=== PATIENT | male | born 1935 | race Caucasian/White ===

== ENCOUNTER → 2016-06-28 | Outpatient (CLI) | payer MEDICARE, BC ==
[2016-06-28 13:53] VITALS: BP 126/60; PULSE 74; RESP 18; TEMP 98.7
--- NOTE | 2016-06-28 20:56 | P.CONS ---
History of Present Illness - Reason for Consult Consult date: 06/28/16 - History of Present Illness This is the initial consultation visit for this 81 years old male, with more than 1 year history of severe neck pain, pain mostly localized in the left side of the neck. And is not radiated to the upper extremities , he denies any fever or night sweats, he denies any motor or sensory deficit, he denies any numbness or tingling sensation, and no change in the bowel movements or urination, denies any initiating event, and he reported that the intensity of the pain is 5/10 increased with any neck movement to 10 over 10, patient ambulates using a wheelchair, but he is able to walk on his own, Past Medical History Past Medical History: Dementia, Hyperlipidemia, Thyroid Disorder Additional Past Medical History / Comment(s): Gout History of Any Multi-Drug Resistant Organisms: None Reported Past Surgical History: No Surgical Hx Reported Past Anesthesia/Blood Transfusion Reactions: No Reported Reaction Past Psychological History: No Psychological Hx Reported Smoking Status: Former smoker Past Alcohol Use History: None Reported Past Drug Use History: None Reported - Past Family History Father Family Medical History: No Reported History Mother Family Medical History: No Reported History Medications and Allergies Home Medications Medication Instructions Recorded Confirmed Type ARIPiprazole [Abilify] 2 mg PO DAILY 06/28/16 06/28/16 History Acetaminophen [Tylenol] 500 mg PO Q4-6H PRN 06/28/16 06/28/16 History Albuterol Sulfate [Proair 1 puff PO DAILY 06/28/16 06/28/16 History Respiclick] Allopurinol [Zyloprim] 300 mg PO DAILY 06/28/16 06/28/16 History Aspirin EC [Ecotrin] 325 mg PO DAILY 06/28/16 06/28/16 History Cholecalciferol [Vitamin D3] 1,000 unit PO DAILY 06/28/16 06/28/16 History Cimetidine [Tagamet Hb] 200 mg PO QID 06/28/16 06/28/16 History DULoxetine HCL [Cymbalta] 60 mg PO DAILY 06/28/16 06/28/16 History Dicyclomine [Bentyl] 20 mg PO QID 06/28/16 06/28/16 History Donepezil [Aricept] 5 mg PO HS 06/28/16 06/28/16 History Fenofibrate Nanocrystallized 145 mg PO DAILY 06/28/16 06/28/16 History [Tricor] Folic Acid 1 mg PO DAILY 06/28/16 06/28/16 History Furosemide [Lasix] 20 mg PO DAILY 06/28/16 06/28/16 History Ginkgo Biloba [place] Extract [Ginkgo] 60 mg PO DAILY 06/28/16 06/28/16 History Iron 18 mg PO DAILY 06/28/16 06/28/16 History Mirtazapine 7.5 mg PO DAILY 06/28/16 06/28/16 History [place]-3 Fatty Acids/Fish Oil [Fish 1 each PO DAILY 06/28/16 06/28/16 History Oil 1,000 mg Softgel] Oxybutynin Chloride [Ditropan XL] 10 mg PO DAILY 06/28/16 06/28/16 History Potassium 30 mg PO DAILY 06/28/16 06/28/16 History Tamsulosin [Flomax] 0.4 mg PO DAILY 06/28/16 06/28/16 History Allergies Allergy/AdvReac Type Severity Reaction Status Date / Time No Known Allergies Allergy Verified 06/28/16 13:35 Physical Exam Vitals: Vital Signs Temp Pulse Resp BP Pulse Ox 06/28/16 13:46 98.7 F 74 18 126/60 98 Intake and Output 06/28/16 06/28/16 06/28/16 06:59 14:59 22:59 Other: Weight 72.575 kg Patient Weight 06/29/16 06:59 Weight 72.575 kg Social history : not smoker , NO ETOH , NO Illegal drugs use . Review of Systems : 1- Constitutional : no chills , no fever , no night sweats , 2- Ears : no ear discharge , no change in hearing 3-Nose, Mouth ,Throat ; no bleeding gums, no sore throat , no epistaxis , 4-Cardiovascular : Denies chest pain, , no orthopnea , no palpitation 5-Respiratory : Denies cough , no dyspnea , no hemoptysis 6-Gastrointestinal :, no change in bowel habits , no coffee- ground emesis . 7-Genitourinary : No hematuria , no discharge , no incontinence, history of renal disease 8-Musculoskeletal : No gait dysfunction , report low back pain , 9- Neurological : no ataxia , no tremor , no sezure , 10-Psychatric , no suicidal ideation no hallucination , history of Alzheimer 11- Endocrine : no cold intolerence , no polyuria , no polydypsia , 12-Hematologic : no easy bleeding , no easy brusing , 13-Allergic / immunology : no angioedema , no wheezing ,no allergic rhinitis 14-Integumentary : no brttle nails , no change hair / nails , no foot/leg ulcers . Physical Examinations : 1-Constitutional : Cooperative , not in acute distress . 2-HEENT : nech ; supple , no Lymphadenopathy , no Thyromegaly , :eyes , no icterus, no photophobia . ENT : , normal oropharynx , no Thrush 3- Respiratory : Chest clear to auscultations Bilaterally , no wheezing . 4- Cardiovascular : regular rate and rhythem , S1 , S2 , no S3 , no S4. 5- Gastrointestinal: abdomen soft no tenderness , no organomegally . 6- Genitourinary : Defferred . 7-Integumentary : No cellulitis , no ulcers , normal skin turgor , no cyanotic . 8- neurologic : Cranial nerve II to XII intact , no focal neurological deffecit 9-psychatric : alert , oriented X 3 , appropriate affect , intact judgment and insight . 10-Lymphatic : no Lymphadenopathy. 11- musculoskeltal: normal gait , exams of the cervical spine = motor stregnth in the deltoid and biceps, normal right side , normal Left side motor stregnth biceps and the wrist extensors normal right side ,normal left side . motor stregnth in the triceps muscle . normal Right side , normal Left side deep tendon reflexes normal at the biceps , normal at Brachioradialis , normal at triceps. positive cervical facet loading test on the left side only. 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 -Patient could benefit from left-sided diagnostic medial branch block cervical area C3 /C4 /C5 will do the diagnostic block was benefits positive then we will proceed to radiofrequency ablation of the medial branch cervical area, procedure risk and benefits and alternatives discussed with the patient and his and they agreed with the preceding Time with Patient: Greater than 30
== END | disposition home or self-care (01) ==
LOC: PNWHC3 13:08
PROVIDERS: ATTEND Specialist
DX: M50.30 Other cervical disc degeneration, unspecified cervical region (principal); M47.812 Spondylosis without myelopathy or radiculopathy, cervical region; M46.92 Unspecified inflammatory spondylopathy, cervical region; F03.90 Unspecified dementia, unspecified severity, without behavioral disturbance, psychotic disturbance, mood disturbance, and anxiety; E78.5 Hyperlipidemia, unspecified; M10.9 Gout, unspecified; Z87.891 Personal history of nicotine dependence; Z79.899 Other long term (current) drug therapy
CPT/HCPCS: 99201

== ENCOUNTER 2016-07-29 08:54 | Day surgery (SDC) | payer MEDICARE, BC ==
[2016-07-28 12:21] VITALS: BMI 24.3
[~2016-07-29 08:54] MED LIST: LACTATED RINGERS 1,000 ML IV SCH
[2016-07-29 09:24] VITALS: TEMP 97.7
[2016-07-29] MEDS ORDERED: LIDOCAINE 1% 20 ML VIAL (10MG/ML) FOR IV START INTRADERMA ONE (09:25)
[2016-07-29] MEDS ORDERED: BUPIVACAINE (PF) 0.5% 30 ML VIAL ONE (09:49)
[2016-07-29] MEDS ORDERED: DEXAMETHASONE SOD PHOS (MDV) 100 MG/10 ML VIAL ONE (09:49)
[2016-07-29] MEDS ORDERED: MIDAZOLAM 2 MG/2 ML VIAL ONE (09:49)
[2016-07-29] MEDS ORDERED: fentaNYL (PF) 50 MCG/ML 2 ML AMP ONE (09:49)
--- NOTE | 2016-07-29 10:36 | FL ---
EXAMINATION TYPE: FL guided pain mgmt statistic DATE OF EXAM: 07/29/2016 10:31 AM HISTORY: Pain LEFT CERVICAL FACET BLACO, FLUORO TIME 22 SECONDS, 2 IMAGES SCANNED,
--- NOTE | 2016-07-29 10:36 | P.PCN ---
Date of Procedure: 07/29/16 Procedure(s) Performed: PREOPERATIVE DIAGNOSIS:1- Cervical Spondylosis with Facet Arthropathy.without myelopathy. 2-cervical degenerative disc disease POSTOPERATIVE DIAGNOSIS: As preoperative diagnosis PROCEDURES: Diagnostic , left C3-4, C4-5 , C5-6, medial branch blocks, with fluoroscopic guidance ANESTHESIA: Local with 1% lidocaine 5 ml ; IV sedation with Versed 2 mg and fentanyl 50 g. EBL: Minimal PROCEDURE INDICATION: The patient with neck pain secondary to cervical arthropathy unresponsive to more conservative treatments. PROCEDURE DESCRIPTION / TECHNIQUE: The patient was seen and identified in the preoperative area. Risks, benefits, complications, and alternatives were discussed with the patient, the patient agreed to proceed with the procedure and signed the consent. IV was started. Vital signs remained stable throughout the procedure. Patient was taken to the OR and time out was completed. The patient was placed in the prone position on the procedure table. A pillow was placed under the patients chest to increase the cervical interlaminar space. The cervical area was prepped and draped in the usual sterile fashion. Critical pause was taken. Vital signs were closely monitored during the procedure. Conscious sedation was used during the procedure to decrease patients anxiety. I tried to visualize the vertebral bodies , I was not able to visualize below the C3 vertebra, the patient placed in the lateral view again I have the same problem couldn't visualize any vertebra below C3 vertebra, the patient was placed in supine position, I was able to visualize C2/C3/C4/C5 vertebra. Using cross-table lateral fluoroscopy, the centroid of the trapezoid of left C3 , C4 , C5 was identified, marked, and localized with 1% lidocaine 1 ml at each level for skin and Sub Q infiltrations . Subsequently, a 22 G 3 spinal needle was advanced guided by fluoroscopy to the centroid of the trapezoid of left C3, C4 , C5. [place] tip position was confirmed at the centroid of the trapezoids of left C3 , C4 , C5 with anteroposterior fluoroscopy. Subsequently, 1,5 ml of preservative-free Bupivacaine 0.5% mixed with Dexamethasone 10 mg and half ml of the mixture was injected after negative aspiration for blood and CSF. [place] was then removed intact the. COMPLICATIONS: No acute complications. COMMENTS: DISPOSITION / PLANS: The patient was placed in a supine position and transferred to the recovery area in a stable condition for observation and was discharged from the recovery room after meeting discharge criteria. Home discharge instructions given to the patient by the staff. The patient was reexamined prior to discharge. The patient will schedule a follow up in the clinic in 2-4 weeks.
[2016-07-29] MEDS ORDERED: IV FLUID CONTINUATION 1,000 ML IV ONE ×2 (10:45)
[2016-07-29] MEDS ORDERED: diphenhydrAMINE 50 MG/ML 1 ML VIAL IVP ONE (10:52)
[2016-07-29 11:18] VITALS: BP 133/72; PULSE 73; RESP 17
== END 2016-07-29 11:33 | disposition home or self-care (01) ==
LOC: ORPAIN 08:54
PROVIDERS: ATTEND Specialist
DX: M47.812 Spondylosis without myelopathy or radiculopathy, cervical region (principal); M46.92 Unspecified inflammatory spondylopathy, cervical region; M50.33 Other cervical disc degeneration, cervicothoracic region; G30.9 Alzheimer's disease, unspecified; F02.80 Dementia in other diseases classified elsewhere, unspecified severity, without behavioral disturbance, psychotic disturbance, mood disturbance, and anxiety
CPT/HCPCS: 99152; 99153; 64490; 64491; 64492; J2250; J1200; J3010; J1100

== ENCOUNTER 2018-05-11 13:11 | Inpatient (IN) | payer MEDICARE, BC ==
[2018-05-11] MEDS ORDERED: NALOXONE 0.4 MG/ML 1 ML VIAL IV PRN ×2 (13:22→15:36)
[2018-05-11] MEDS ORDERED: VANCOMYCIN IV PER PHARMACY 1 EACH MISC MISCELLANE PRN (13:27)
[2018-05-11] MEDS ORDERED: DEXTROSE 5%-0.45% NACL 1,000 ML IV SCH (13:30)
[2018-05-11] MEDS: NOREPINEPHRINE 4 MG in SODIUM CHLORIDE 0.9% 250 ML IV SCH (13:55)
[2018-05-11 13:58] LABS: Basophils % (A) 0 %; Eosinophils % (A) 0 %; HCT 32.5 % (39.0-53.0); HGB 10.3 gm/dL (13.0-17.5); Hypochromasia Slight; Lymphocytes # (A) 0.7 k/uL (1.0-4.8); Lymphocytes % (A) 8 %; MCH 31.7 pg (25.0-35.0); MCHC 31.8 g/dL (31.0-37.0); MCV 99.7 fL (80.0-100.0); Mean Platelet Volume 8.4; Monocytes # (A) 0.3 k/uL (0-1.0); Monocytes % (A) 3 %; Neutrophils % (A) 87 %; Platelet Count 229 k/uL (150-450); RBC 3.26 m/uL (4.30-5.90); RDW 13.8 % (11.5-15.5); WBC 8.1 k/uL (3.8-10.6)
[2018-05-11 14:01] LABS: Albumin 2.3 g/dL (3.5-5.0); Calcium 7.4 mg/dL (8.4-10.2); Magnesium 2.5 mg/dL (1.6-2.3); Potassium 3.5 mmol/L (3.5-5.1); Total Bilirubin 0.4 mg/dL (0.2-1.3); Total Protein 4.5 g/dL (6.3-8.2)
[2018-05-11 14:04] LABS: ABG Base Excess -7.4 mmol/L; ABG HCO3 21 mmol/L (21-25); ABG Oxygen Saturation 96.6 % (94-97); ABG PCO2 53 mmHg (35-45); ABG PO2 109 mmHg (83-108); ABG TCO2 22 mmol/L (19-24)
[2018-05-11 14:05] LABS: Partial Thromboplastin Time 30.6 sec (22.0-30.0); Prothrombin Time 10.9 sec (9.0-12.0)
--- NOTE | 2018-05-11 14:36 | XR ---
EXAMINATION TYPE: XR chest 1V portable DATE OF EXAM: 05/11/2018 COMPARISON: None INDICATION: Line displacement TECHNIQUE: Single frontal view of the chest is obtained. FINDINGS: The heart size is normal. The pulmonary vasculature is normal. There is diffuse increased lung markings bilaterally. This is increased greater in the central hilar regions.Small left pleural effusion is present. Right central venous catheter is been placed with tip in the proximal right atrium. No pneumothorax i s evident. Nasogastric tube transverses the thorax the tip in the left upper quadrant of the abdomen. Endotracheal tube tip is 3.3 cm above the fuentes. IMPRESSION: 1. Increased central hilar lung markings with more mild diffuse infiltrate in the periphery. Correlat e for pulmonary edema. 2. Small left pleural effusion. 3. Lines and catheters discussed above.
--- NOTE | 2018-05-11 14:54 | ED ---
General Adult HPI - General Chief complaint: Altered Mental Status Stated complaint: GIUSEPPE Time Seen by Provider: 05/11/18 13:21 Source: EMS, RN notes reviewed, old records reviewed Mode of arrival: EMS Limitations: altered mental status - History of Present Illness Initial comments: 83-year-old male presents as transfer from outside hospital, patient was admitted with pneumonia, his clinical status did deteriorate and patient was transferred for higher level of care and ICU management. No history obtained from the patient. According to the medical record patient had bilateral pneumonia, just of heart failure, elevated troponin. He was initiated on ceftriaxone, clindamycin, and vancomycin. He was out and was started on norepinephrine for blood pressure support. Pt had significantly elevated troponin as well as BNP, he was treated for non-ST segment elevated [place] with Lovenox. Patient was placed on BiPAP prior to transfer, upon arrival patient is his severe respiratory distress, tachypneic at 40, he been hypoxic in the high 80s to low 90s during transport. Patient previously had a DO NOT RESUSCITATE however this was revoked by his prior to transfer. I did intubate the patient upon arrival. - Related Data Home Medications Medication Instructions Recorded Confirmed Allopurinol [Zyloprim] 150 mg PO DAILY 06/28/16 05/11/18 Cholecalciferol [Vitamin D3] 5,000 unit PO DAILY 06/28/16 05/11/18 DULoxetine HCL [Cymbalta] 60 mg PO DAILY 06/28/16 05/11/18 Ginkgo Biloba [place] Extract [Ginkgo] 60 mg PO BID 06/28/16 05/11/18 Tamsulosin [Flomax] 0.4 mg PO DAILY 06/28/16 05/11/18 Levothyroxine Sodium [Synthroid] 50 mcg PO DAILY 07/28/16 05/11/18 Potassium Chloride [K-Tab ER] 10 meq PO DAILY 10/01/16 05/11/18 Cetirizine HCl [Zyrtec] 10 mg PO DAILY 12/06/16 05/11/18 Ferrous Sulfate [Feosol] 325 mg PO DAILY 12/06/16 05/11/18 Folic Acid 0.8 mg PO DAILY 12/06/16 05/11/18 Mirtazapine [Remeron] 15 mg PO HS 12/06/16 05/11/18 Multivitamins, Thera [Multivitamin 1 tab PO DAILY 12/06/16 05/11/18 (formulary)] Acetaminophen Tab [Tylenol Tab] 650 mg PO Q6H PRN 05/11/18 05/11/18 Albuterol Sulfate [Proair Hfa] 2 puff INHALATION RT-Q4H PRN 05/11/18 05/11/18 Bisacodyl 10 mg RECTAL DAILY PRN 05/11/18 05/11/18 LORazepam [Ativan] 1 mg PO TID PRN 05/11/18 05/11/18 Magnesium 400 mg PO DAILY 05/11/18 05/11/18 Magnesium Hydroxide [Milk of 2,400 mg PO DAILY PRN 05/11/18 05/11/18 Magnesia] Memantine HCl [Namenda Xr] 28 mg PO DAILY 05/11/18 05/11/18 Sennosides [Senna] 8.6 mg PO HS PRN 05/11/18 05/11/18 Solifenacin Succinate [Vesicare] 5 mg PO DIRECTED 05/11/18 05/11/18 Allergies Allergy/AdvReac Type Severity Reaction Status Date / Time chloraprep Allergy Rash/Hives Uncoded 12/06/16 10:53 Review of Systems ROS Statement: Those systems with pertinent positive or pertinent negative responses have been documented in the HPI. ROS Other: All systems not noted in ROS Statement are negative. Past Medical History Past Medical History: Asthma, Dementia, Deep Vein Thrombosis (DVT), Hyperlipidemia, Osteoarthritis (OA), Pneumonia, Renal Disease, Thyroid Disorder , Vascular Disorder Additional Past Medical History / Comment(s): GOUT, STATES BLOCKAGE BOTH LEGS- UNABLE TO WALK DISTANCE., USES CANE., PNEUMONIA IN SEPTEMBER 2016., FOLLOWS WITH "VEIN DR AND KIDNEY DR.", NECK PAIN. History of Any Multi-Drug Resistant Organisms: None Reported Past Surgical History: Appendectomy, Cholecystectomy, Hernia Repair, Joint Replacement Additional Past Surgical History / Comment(s): CIRCUMCISION, TOTAL LEFT KNEE, NECK SURGERY, VARICOSE VEIN SURGERY, CATARACTS MICHAELA, VASECTOMY Past Anesthesia/Blood Transfusion Reactions: No Reported Reaction Past Psychological History: Depression Smoking Status: Former smoker Past Alcohol Use History: None Reported Past Drug Use History: None Reported - Past Family History Father Family Medical History: No Reported History Mother Family Medical History: Cancer Brother(s) Family Medical History: Cancer General Exam Limitations: altered mental status General appearance: obtunded, in distress Head exam: Present: atraumatic, normocephalic Eye exam: Present: normal appearance, PERRL ENT exam: Present: mucous membranes dry Respiratory exam: Present: respiratory distress, wheezes, rhonchi, decreased breath sounds Cardiovascular Exam: Present: regular rate, normal rhythm GI/Abdominal exam: Present: soft. Absent: distended, tenderness Extremities exam: Present: normal capillary refill, pedal edema Skin exam: Present: warm, dry, intact Course Vital Signs 05/11/18 05/11/18 05/11/18 13:17 13:35 13:45 Temperature 99.2 F Pulse Rate 104 H 100 100 Respiratory 20 16 16 Rate Blood Pressure 95/60 104/55 105/54 O2 Sat by Pulse 89 L 96 96 Oximetry 05/11/18 05/11/18 14:10 14:25 Temperature Pulse Rate 101 H 103 H Respiratory 16 16 Rate Blood Pressure 121/61 112/58 O2 Sat by Pulse 97 98 Oximetry Procedures - Central Line Placement Right SC Consent Obtained: emergent situation Patient Placed on Monitor/Pulse Ox: Yes MD Prep: mask, gown, gloves Ultrasound Used for Placement: No Central Line Lumen Inserted: triple Bloods Obtained for Lab: Yes Central Line Position: good blood return, all ports aspirated, flushed, capped, sutured in place with nylon Dressing Applied: Tegaderm Post Procedure X-Ray: tip of catheter in good position Patient Tolerated Procedure: well Complications: none - Intubation Sedative: Versed Mg Given: 5 Paralytic: Rocuronium Mg Given: 50 Laryngoscope: Kar Size: 3 ET Tube Size: 7.5 ET Tube Uncuffed: No Tube Secured Depth (cm): 23 Tube Secured Location: lips Tube Placement Confirmation: visualized tube passing through cords, equal breath sounds bilaterally, no breath sounds over epigastrium, confirmation by capnometry Patient Tolerated Procedure: well Intubation Complications: none Medical Decision Making - Medical Decision Making 83-year-old male presenting as transfer, severe respiratory distress, congestive heart failure, bilateral pneumonia, non-ST segment elevated [place]. Patient intubated, chest x-ray obtained, shows bilateral pulmonary edema, no pneumothorax. All laboratory studies will be repeated, echo will be obtained, patient admitted to the ICU, case discussed with both the admitting physician and the pulmonary end frazer, cardiology will be placed on consult. - Lab Data Result diagrams: 05/11/18 13:40 05/11/18 13:40 Critical Care Time Critical Care Time: Yes Total Critical Care Time: 35 Disposition Clinical Impression: Respiratory failure, Congestive heart failure, Pneumonia Disposition: ADMITTED IP TO THIS [facility] Condition: Serious Is patient prescribed a controlled substance at d/c from ED?: No Decision to Admit Reason: Admit from EC Decision Date: 05/11/18 Decision Time: 14:53
[2018-05-11] MEDS ORDERED: SODIUM CHLORIDE 0.9% 1,000 ML IV SCH ×2 (15:00→18:45)
[2018-05-11] MEDS ORDERED: HEPARIN SODIUM,PORCINE 5,000 UNIT/ML 1 ML VIAL IV PRN (15:24)
[2018-05-11 15:26] LABS: Glucose,Whole Blood 143 mg/dL (75-99)
[2018-05-11] MEDS: PROPOFOL 1,000 MG in EMPTY BAG 1 BAG IV SCH (15:30)
[2018-05-11] MEDS ORDERED: IPRATROPIUM-ALBUTEROL 3 ML NEB INHALATION PRN (15:36)
--- NOTE | 2018-05-11 15:58 | XR ---
EXAMINATION TYPE: XR chest 1V portable DATE OF EXAM: 05/11/2018 COMPARISON: 05/11/2018 earlier exam INDICATION: Tube placement TECHNIQUE: Single frontal view of the chest is obtained. FINDINGS: The heart size is normal. The pulmonary vasculature is borderline in size. There is some improving perihilar infiltrates. Overall, diffuse increased lung markings remain presen t slightly improved over the interval. Left base. A small left pleural effusion remains present. Endotracheal tube, nasogastric tube, right central venous catheter positioning stable. IMPRESSION: 1. There is improving infiltrate through the bilateral lungs. Bibasilar infiltrates considered. Follo w-up can be performed as clinically indicated. 2. Lines and catheters discussed above
[2018-05-11 16:09] LABS: ABG Base Excess -5.6 mmol/L; ABG HCO3 22 mmol/L (21-25); ABG Oxygen Saturation 97.8 % (94-97); ABG PCO2 49 mmHg (35-45); ABG PH 7.25 (7.35-7.45); ABG PO2 116 mmHg (83-108); ABG TCO2 23 mmol/L (19-24)
--- NOTE | 2018-05-11 16:13 | P.CNPUL ---
History of Present Illness Consult date: 05/11/18 Reason for consult: other (Acute hypoxic respiratory failure secondary to pneumonia and CHF) Chief complaint: Shortness of breath. History of present illness: This is an 83-year-old white male with history of chronic kidney disease stage III, dementia, degenerative joint disease and previous knee replacement, patient resides at [facility] and he was found today's ago by caregivers as having difficulty breathing and shortness of breath. He was also febrile, and was developing more lethargy. He had 2 episodes of emesis. Patient was taken to [place] emergency room. He was found to have multiple medical problems including pneumonia, sepsis, acute urinary tract infection, patient was admitted placed on Rocephin and clindamycin, felt the patient may have had aspiration pneumonia. At any rate patient's condition was deteriorating over the last 2 days, and arrangements were made for the patient to transfer to [facility]. He was placed on BiPAP, and as he arrived to the ER, he was noted to be in extreme respiratory distress. He was intubated by the ER physician immediately if. Apparently he had a DO NOT RESUSCITATE CODE STATUS prior to transfer, but on the way down here his reversed his CODE STATUS to full code. Patient was intubated placed on mechanical ventilation, a right subclavian central line was placed by the ER physician. The patient was relatively hypotensive requiring pressors and eventually transferred to the ICU. I didn't evaluate the patient in the ICU, reviewed her chest x-ray, labs, right radial arterial line was placed, and repeat blood gases were done ventilator settings will be adjusted accordingly. He is presently on 100% FiO2, assist control rate of 20 tidal volume of 500 PEEP of 8. Repeat ABG is pending patient is sedated, presently on mechanical ventilation. And not much history could be obtained other than what I have reviewed in the chart from [place] and from our ER physician. Chest x-ray showed increase central hilar lung markings and diffuse infiltrates bilaterally , the chest x-ray is consistent with bilateral pneumonia, however interstitial edema is not ruled out. There is also small left pleural effusion noted. Review of Systems ROS unobtainable: due to endotracheal tube Past Medical History Past Medical History: Asthma, Dementia, Deep Vein Thrombosis (DVT), Hyperlipidemia, Memory Impairment, Osteoarthritis (OA), Pneumonia, Prostate Disorder, Renal Disease, Thyroid Disorder, Vascular Disorder Additional Past Medical History / Comment(s): GOUT, STATES BLOCKAGE BOTH LEGS- UNABLE TO WALK DISTANCE., USES CANE., PNEUMONIA IN SEPTEMBER 2016., FOLLOWS WITH "VEIN AND KIDNEY ", NECK PAIN-hx cervical ddd and sx. past gout, diverticulitis,ulcers, uti's, dementia, ecf stated pt can become combatative. unsteady when up and has had falls. History of Any Multi-Drug Resistant Organisms: None Reported Past Surgical History: Appendectomy, Cholecystectomy, Hernia Repair, Joint Replacement Additional Past Surgical History / Comment(s): CIRCUMCISION, TOTAL LEFT KNEE, NECK SURGERY-has plate in neck, past medial branch blocks for cervical ddd.VARICOSE VEIN SURGERY, CATARACTS MICHAELA, colonoscopy, VASECTOMY Past Anesthesia/Blood Transfusion Reactions: No Reported Reaction Smoking Status: Former smoker - Past Family History Father Family Medical History: No Reported History Mother Family Medical History: Cancer Brother(s) Family Medical History: Cancer Medications and Allergies Home Medications Medication Instructions Recorded Confirmed Type Allopurinol [Zyloprim] 150 mg PO DAILY 06/28/16 05/11/18 History Cholecalciferol [Vitamin D3] 5,000 unit PO DAILY 06/28/16 05/11/18 History DULoxetine HCL [Cymbalta] 60 mg PO DAILY 06/28/16 05/11/18 History Ginkgo Biloba [place] Extract [Ginkgo] 60 mg PO BID 06/28/16 05/11/18 History Tamsulosin [Flomax] 0.4 mg PO DAILY 06/28/16 05/11/18 History Levothyroxine Sodium [Synthroid] 50 mcg PO DAILY 07/28/16 05/11/18 History Potassium Chloride [K-Tab ER] 10 meq PO DAILY 10/01/16 05/11/18 History Cetirizine HCl [Zyrtec] 10 mg PO DAILY 12/06/16 05/11/18 History Ferrous Sulfate [Feosol] 325 mg PO DAILY 12/06/16 05/11/18 History Folic Acid 0.8 mg PO DAILY 12/06/16 05/11/18 History Mirtazapine [Remeron] 15 mg PO HS 12/06/16 05/11/18 History Multivitamins, Thera [Multivitamin 1 tab PO DAILY 12/06/16 05/11/18 History (formulary)] Acetaminophen Tab [Tylenol Tab] 650 mg PO Q6H PRN 05/11/18 05/11/18 History Albuterol Sulfate [Proair Hfa] 2 puff INHALATION RT-Q4H PRN 05/11/18 05/11/18 History Bisacodyl 10 mg RECTAL DAILY PRN 05/11/18 05/11/18 History LORazepam [Ativan] 1 mg PO TID PRN 05/11/18 05/11/18 History Magnesium 400 mg PO DAILY 05/11/18 05/11/18 History Magnesium Hydroxide [Milk of 2,400 mg PO DAILY PRN 05/11/18 05/11/18 History Magnesia] Memantine HCl [Namenda Xr] 28 mg PO DAILY 05/11/18 05/11/18 History Sennosides [Senna] 8.6 mg PO HS PRN 05/11/18 05/11/18 History Solifenacin Succinate [Vesicare] 5 mg PO DIRECTED 05/11/18 05/11/18 History Allergies Allergy/AdvReac Type Severity Reaction Status Date / Time chloraprep Allergy Rash/Hives Uncoded 12/06/16 10:53 Physical Exam Vitals: Vital Signs Temp Pulse Resp BP Pulse Ox 05/11/18 15:14 98.3 F 102 H 16 112/58 98 05/11/18 14:57 101 H 16 113/59 97 05/11/18 14:25 103 H 16 112/58 98 05/11/18 14:10 101 H 16 121/61 97 05/11/18 13:45 100 16 105/54 96 05/11/18 13:35 100 16 104/55 96 05/11/18 13:17 99.2 F 104 H 20 95/60 89 L Intake and Output 05/11/18 05/11/18 05/11/18 06:59 14:59 22:59 Other: Weight 68.039 kg Physical Exam: Revealed an 83-year-old white male on mechanical ventilation, sedated, in no distress. Head: Atraumatic normocephalic. HEENT:[Neck is supple.] [No neck masses.] [No thyromegaly.] [No JVD.] PERRLA, EOMI, no icterus. Endotracheal tube and orogastric tube are noted to be intact Chest: [No animal crackles at the bases, no rhonchi and no wheezes. Symmetrical chest expansion, no chest wall tenderness, right infraclavicular subclavian central line noted..] Cardiac Exam: [Normal S1 and S2, no S3 gallop, 2/6 systolic murmur thought the precordium. Abdomen: [Soft, nontender, no megaly, no rebound, no guarding, normal bowel sounds.] Extremities: [No clubbing, no edema, no cyanosis.] Good pulses bilaterally in upper and lower extremities. Neurological Exam: Not be assessed, patient is sedated, apparently he was confused and obtunded upon arrival to the ER earlier before any sedation was given Skin: No rashes. Psychiatric: Could not be assessed. Lymphatics: No lymphadenopathy. Results - Laboratory Findings CBC and BMP: 05/11/18 13:40 05/11/18 13:40 ABG ABG pH 7.20 (7.35-7.45) L 05/11/18 14:02 ABG pCO2 53 mmHg (35-45) H 05/11/18 14:02 ABG pO2 109 mmHg (83-108) H 05/11/18 14:02 ABG O2 Saturation 96.6 % (94-97) 05/11/18 14:02 PT/INR, D-dimer PT 10.9 sec (9.0-12.0) 05/11/18 13:40 INR 1.0 (<1.2) 05/11/18 13:40 Abnormal lab findings: Abnormal Labs 05/11/18 05/11/18 05/11/18 13:40 13:40 13:40 RBC 3.26 L Hgb 10.3 L Hct 32.5 L Lymphocytes # 0.7 L APTT 30.6 H ABG pH ABG pCO2 ABG pO2 Sodium 148 H Chloride 119 H Carbon Dioxide 19 L BUN 50 H Creatinine 1.26 H Glucose 151 H POC Glucose (mg/dL) Plasma Lactic Acid Luis Calcium 7.4 L Magnesium 2.5 H AST 86 H Troponin I Total Protein 4.5 L Albumin 2.3 L 05/11/18 05/11/18 05/11/18 13:40 13:40 14:02 RBC Hgb Hct Lymphocytes # APTT ABG pH 7.20 L ABG pCO2 53 H ABG pO2 109 H Sodium Chloride Carbon Dioxide BUN Creatinine Glucose POC Glucose (mg/dL) Plasma Lactic Acid Luis 2.2 H* Calcium Magnesium AST Troponin I 14.400 H* Total Protein Albumin 05/11/18 15:14 RBC Hgb Hct Lymphocytes # APTT ABG pH ABG pCO2 ABG pO2 Sodium Chloride Carbon Dioxide BUN Creatinine Glucose POC Glucose (mg/dL) 143 H Plasma Lactic Acid Luis Calcium Magnesium AST Troponin I Total Protein Albumin - Diagnostic Findings Chest x-ray: image reviewed (Chest x-ray was reviewed and as noted in HPI.) Assessment and Plan Assessment: Impression: 1 acute hypoxic respiratory failure secondary to pneumonia, healthcare acquired type of pneumonia since the patient was in a senior living facility. Although aspiration pneumonia is also very likely considering the patient has underlying dementia and he had few episodes of emesis before he was brought into the ER in [place]. 2 acute sepsis secondary to pneumonia, other sources could also be the urine. 3 suspect some component of congestive heart failure, not clear whether it is systolic or diastolic in nature. Echocardiogram is pending. ProBNP level was significantly elevated on presentation. 4 history of dementia 5 degenerative joint disease and previous knee replacement./Left knee 6 chronic kidney disease stage III 7 acute non-ST elevation myocardial infarction is strongly suspected based on the fact the patient had elevated troponin 8 history of hypothyroidism 9 history of deep vein thrombosis 10 history of asthma as documented in the chart, however severity of which is not clear. Recommendation: Patient will be kept on mechanical ventilation, ventilator settings were addressed, and these will be adjusted according to the ABG. Follow-up ABG showed a pO2 of 116 pCO2 of 49 pH of 7.25, hence will increase tidal volume to 550 and keep the rest of the vent settings the same titrate FiO2 gradually down to keep saturation above 90%. Broad-spectrum antibiotics. GI and DVT prophylaxis. Nutritional support via enteral feeding. Bronchodilators for underlying COPD diuretics depending on the hemodynamic status of the patient and whether pressors will be needed, not clear at this point, but the patient came up here to the ICU on a small dose of norepinephrine which will be titrated accordingly. Echocardiogram is pending. Patient will be seen by cardiology on consultation. We'll also add heparin as the patient may have had a non-ST elevation myocardial infarction based on troponin. Prognosis at this point is definitely guarded, and the patient is critically ill. We'll continue to follow closely. Time with Patient: Greater than 30
[2018-05-11] MEDS: HEPARIN SOD,PORK IN 0.45% NACL 25,000 UNIT in 0.45% NACL 1 250ML.BAG IV SCH (16:34)
[2018-05-11] MEDS: CEFEPIME 2 GM in SODIUM CHLORIDE 0.9% 100 ML IVPB SCH (16:35)
[2018-05-11] MEDS: methylPREDNISolone SOD SUCCI 40 MG/ML 1 ML VIAL IV SCH (16:38)
[2018-05-11] MEDS: ATORVASTATIN 40 MG TAB PO SCH (16:52)
[2018-05-11] MEDS: SODIUM CHLORIDE 0.9% 1,000 ML IV SCH (18:41)
[2018-05-11] MEDS: BUDESONIDE 0.5 MG/2 ML NEBU INHALATION SCH (19:08)
[2018-05-11] MEDS: IPRATROPIUM-ALBUTEROL 3 ML NEB INHALATION PRN (19:08)
--- NOTE | 2018-05-11 20:08 | CONS ---
CONSULTATION Mr. Biswas is an 83-year-old male who was transferred from [facility] with symptoms of progressive dyspnea. Patient apparently presented there with bilateral pneumonia but had worsening of his oxygenation with evidence of elevation of his troponin and NT proBNP. En route, he was on a non-rebreather and subsequently he was intubated upon arrival in the emergency room. Apparently, according to the nursing staff and the notes from [place], the patient was initially a DNR, but subsequently his elected to be FULL CODE. I have no other prior history. It does not look like he had any significant arrhythmia while in [place]. He is intubated and sedated at this point, in sinus mechanism. HOME MEDICATION: Included: 1. VESIcare. 2. Milk of Magnesia. 3. ProAir. 4. Ativan. 5. Namenda. 6. Remeron. 7. Synthroid. 8. Flomax. 9. Ginkgo. 10.Cymbalta. 11.Zyrtec. 12.Zyloprim. REVIEW OF SYSTEMS: Could not be obtained. PHYSICAL EXAMINATION: This is an 83-year-old male, intubated, sedated. Blood pressure 112/58 with a heart rate in the low 100s, afebrile. HEAD: Normocephalic. Eyes: Sclerae anicteric. NECK: Good carotid upstroke. No bruit. LUNGS: A few crackles anteriorly. HEART: Regular rate and rhythm. S1, S2 with systolic murmur at the base. No diastolic murmur. No rub. A 2/6, ejection type. ABDOMEN: Soft. Positive bowel sounds. No organomegaly. EXTREMITIES: No edema. Intact distal pulses. LAB DATA: BUN and creatinine of 50 and 1.26, potassium 3.5, plasma lactic acid 2.2. Troponin 14.4. NT proBNP 18,300. The pH 7.2, pCO2 53, PO2 109. Hemoglobin 10.3, white blood cells of 8.1. IMPRESSION: 1. Respiratory failure, probably a combination of pneumonia and subsequent congestive heart failure. 2. Elevation of the troponin consistent with [id number]-elevation myocardial infarction. His troponin was 15 in [place]. 3. Renal failure of unknown duration. RECOMMENDATIONS: From the cardiac standpoint, I will start the patient on heparin and aspirin as well as Lipitor. Will obtain an echocardiogram with Doppler. He will receive intravenous diuretics. He will be treated with antibiotics per Dr. Ray. Will follow his renal function closely. Depending on his progress, further recommendations will be made. Unfortunately, the prognosis is guarded. Thank you for this consult. Will follow with you. MMODL / IJN: [id number] /
[2018-05-11] MEDS ORDERED: FUROSEMIDE 10 MG/ML 4 ML VIAL IV SCH (21:00)
--- NOTE | 2018-05-11 21:08 | PCN ---
PROCEDURE NOTE PROCEDURE PERFORMED: Placement of a radial arterial line. PREOPERATIVE DIAGNOSIS: Acute respiratory failure. POSTOP DIAGNOSIS: Acute respiratory failure. ANESTHESIA: None deployed. DESCRIPTION OF PROCEDURE: The patient was placed in the supine position, the right chest was prepared in a sterile fashion and drapes were applied. The right radial artery was palpated, cannulated, and a guidewire was placed. A Cook catheter inserted over the guidewire, the guidewire was removed. Good blood flow noted, good waveform noted. The line was secured using 3.0 silk sutures. MMODL / IJN: [id number] /
[2018-05-11] MEDS: CHLORHEXIDINE GLUCONATE 15 ML CUP MUCOUS MEM SCH (21:11)
--- NOTE | 2018-05-11 23:06 | P.HPIM ---
History of Present Illness H&P Date: 05/11/18 Chief Complaint: Bilateral pneumonia transfer from [facility] Patient is a 83-year-old male with a known history of dementia, asthma, history of DVT, memory impairment, osteoarthritis and chronic kidney disease who has been staying at [facility] for the past 2 months was initially transferred to [facility] due to patient being very lethargic and confused and difficulty breathing. Patient also had 1 episode of vomiting. Patient is also febrile when he presented to ER. Patient was initially seen on 05/09/2018 at [facility]. Patient was being treated for pneumonia with Cleocin and ceftriaxone. Today patient condition is deteriorated with worsening chest x-ray findings of bilateral pneumonia. Patient was placed on BiPAP machine and eventually transferred to [facility] ER. Patient was also given a dose of vancomycin at [facility]. Upon arrival to ER patient was found to be hypoxic and was intubated in the ER. Patient was also started on Levophed in the ER. Patient was DO NOT RESUSCITATE/DO NOT INTUBATE prior to transfer but on the way patient's reversed his CODE STATUS to full code. Chest x-ray showed increased central hilar lung markings and diffuse infiltrates bilaterally. Chest x-ray consistent with bilateral pneumonia however interstitial edema is not ruled out. Small left pleural effusion. Troponin 14.4 Review of Systems Review of systems could not be apparent from the patient. Past Medical History Past Medical History: Asthma, Dementia, Deep Vein Thrombosis (DVT), Hyperlipidemia, Memory Impairment, Osteoarthritis (OA), Pneumonia, Prostate Disorder, Renal Disease, Thyroid Disorder, Vascular Disorder Additional Past Medical History / Comment(s): GOUT, STATES BLOCKAGE BOTH LEGS- UNABLE TO WALK DISTANCE., USES CANE., PNEUMONIA IN SEPTEMBER 2016., FOLLOWS WITH "VEIN DR AND KIDNEY DRPalomo", NECK PAIN-hx cervical ddd and sx. past gout, diverticulitis,ulcers, uti's, dementia, ecf stated pt can become combatative. unsteady when up and has had falls. History of Any Multi-Drug Resistant Organisms: None Reported Past Surgical History: Appendectomy, Cholecystectomy, Hernia Repair, Joint Replacement Additional Past Surgical History / Comment(s): CIRCUMCISION, TOTAL LEFT KNEE, NECK SURGERY-has plate in neck, past medial branch blocks for cervical ddd.VARICOSE VEIN SURGERY, CATARACTS MICHAELA, colonoscopy, VASECTOMY Past Anesthesia/Blood Transfusion Reactions: No Reported Reaction Smoking Status: Former smoker - Past Family History Father Family Medical History: No Reported History Mother Family Medical History: Cancer Brother(s) Family Medical History: Cancer Medications and Allergies Home Medications Medication Instructions Recorded Confirmed Type Allopurinol [Zyloprim] 150 mg PO DAILY 06/28/16 05/11/18 History Cholecalciferol [Vitamin D3] 5,000 unit PO DAILY 06/28/16 05/11/18 History DULoxetine HCL [Cymbalta] 60 mg PO DAILY 06/28/16 05/11/18 History Ginkgo Biloba [place] Extract [Ginkgo] 60 mg PO BID 06/28/16 05/11/18 History Tamsulosin [Flomax] 0.4 mg PO DAILY 06/28/16 05/11/18 History Levothyroxine Sodium [Synthroid] 50 mcg PO DAILY 07/28/16 05/11/18 History Potassium Chloride [K-Tab ER] 10 meq PO DAILY 10/01/16 05/11/18 History Cetirizine HCl [Zyrtec] 10 mg PO DAILY 12/06/16 05/11/18 History Ferrous Sulfate [Feosol] 325 mg PO DAILY 12/06/16 05/11/18 History Folic Acid 0.8 mg PO DAILY 12/06/16 05/11/18 History Mirtazapine [Remeron] 15 mg PO HS 12/06/16 05/11/18 History Multivitamins, Thera [Multivitamin 1 tab PO DAILY 12/06/16 05/11/18 History (formulary)] Acetaminophen Tab [Tylenol Tab] 650 mg PO Q6H PRN 05/11/18 05/11/18 History Albuterol Sulfate [Proair Hfa] 2 puff INHALATION RT-Q4H PRN 05/11/18 05/11/18 History Bisacodyl 10 mg RECTAL DAILY PRN 05/11/18 05/11/18 History LORazepam [Ativan] 1 mg PO TID PRN 05/11/18 05/11/18 History Magnesium 400 mg PO DAILY 05/11/18 05/11/18 History Magnesium Hydroxide [Milk of 2,400 mg PO DAILY PRN 05/11/18 05/11/18 History Magnesia] Memantine HCl [Namenda Xr] 28 mg PO DAILY 05/11/18 05/11/18 History Sennosides [Senna] 8.6 mg PO HS PRN 05/11/18 05/11/18 History Solifenacin Succinate [Vesicare] 5 mg PO DIRECTED 05/11/18 05/11/18 History Allergies Allergy/AdvReac Type Severity Reaction Status Date / Time chloraprep Allergy Rash/Hives Uncoded 12/06/16 10:53 Physical Exam Vitals: Vital Signs Temp Pulse Resp BP Pulse Ox 05/11/18 16:00 96 20 93/54 97 05/11/18 15:50 95 23 113/62 96 05/11/18 15:40 96 20 113/62 92 L 05/11/18 15:30 98 21 113/62 92 L 05/11/18 15:20 100 16 113/62 90 L 05/11/18 15:14 98.3 F 102 H 16 112/58 98 05/11/18 15:10 113/59 05/11/18 15:00 101 H 16 113/59 97 05/11/18 14:57 101 H 16 113/59 97 05/11/18 14:50 102 H 16 113/59 97 05/11/18 14:40 101 H 16 112/58 97 05/11/18 14:30 102 H 16 121/61 97 05/11/18 14:25 103 H 16 112/58 98 05/11/18 14:20 104 H 16 121/61 98 05/11/18 14:10 105 H 16 111/57 98 05/11/18 14:08 97.9 F 105 H 12 111/57 98 05/11/18 13:45 100 16 105/54 96 05/11/18 13:35 100 16 104/55 96 05/11/18 13:17 99.2 F 104 H 20 95/60 89 L Intake and Output 05/11/18 05/11/18 05/11/18 06:59 14:59 22:59 Intake Total 85.493 Output Total 125 Balance -39.507 Intake: IV 40 Dextrose 5%-0.45% NaCl 1, 40 000 ml @ 20 mls/hr IV . Q24H [facility] Rx#:[id number] Intake, IV Titration 45.493 Amount Norepinephrine 4 mg In 41.685 Sodium Chloride 0.9% 250 ml @ 0.05 MCG/KG/MIN 12. 96 mls/hr IV .[id number] [facility] Rx#:[id number] Propofol 1,000 mg In 3.808 Empty Bag 1 bag @ Titrate IV .Q0M [facility] Rx#: [id number] Output: Urine 125 Other: Weight 68.039 kg ABP, PAP, CO, CI - Last 8 Hours Arterial Blood Pressure 110/56 Arterial Blood Pressure 106/46 Arterial Blood Pressure 127/47 PHYSICAL EXAMINATION: Patient is lying in the bed . Currently sedated and intubated. HEENT: Normocephalic. Neck is supple. Pupils reactive. Nostrils clear. Oral cavity is moist. Ears reveal no drainage. Neck reveals no JVD, carotid bruits, or thyromegaly. CHEST EXAMINATION: Trachea is central. Tracheal tube in place. Symmetrical expansion. Bilateral diffuse rhonchi. No wheezing.. CARDIAC: Normal S1, S2 with no gallops. No murmurs ABDOMEN: Soft. Bowel sounds normal. No organomegaly. No abdominal bruits. Extremities: Trace edema. No clubbing or cyanosis Neurologically. Patient is currently sedated and intubated. No gross focal deficits noted Skin: No rash or skin lesions. Psychiatric: Could not be assessed. Musculoskeletal: No joint swelling or deformity. Results CBC & Chem 7: 05/11/18 13:40 05/11/18 13:40 Labs: Abnormal Lab Results - Last 24 Hours (Table) 05/11/18 05/11/18 05/11/18 Range/Units 13:40 13:40 13:40 RBC 3.26 L (4.30-5.90) m/uL Hgb 10.3 L (13.0-17.5) gm/dL Hct 32.5 L (39.0-53.0) % Lymphocytes # 0.7 L (1.0-4.8) k/uL APTT 30.6 H (22.0-30.0) sec ABG pH (7.35-7.45) ABG pCO2 (35-45) mmHg ABG pO2 (83-108) mmHg ABG O2 Saturation (94-97) % Sodium 148 H (137-145) mmol/L Chloride 119 H (98-107) mmol/L Carbon Dioxide 19 L (22-30) mmol/L BUN 50 H (9-20) mg/dL Creatinine 1.26 H (0.66-1.25) mg/dL Glucose 151 H (74-99) mg/dL POC Glucose (mg/dL) (75-99) mg/dL Plasma Lactic Acid Luis (0.7-2.0) mmol/L Calcium 7.4 L (8.4-10.2) mg/dL Magnesium 2.5 H (1.6-2.3) mg/dL AST 86 H (17-59) U/L Troponin I (0.000-0.034) ng/mL Total Protein 4.5 L (6.3-8.2) g/dL Albumin 2.3 L (3.5-5.0) g/dL 05/11/18 05/11/18 05/11/18 Range/Units 13:40 13:40 14:02 RBC (4.30-5.90) m/uL Hgb (13.0-17.5) gm/dL Hct (39.0-53.0) % Lymphocytes # (1.0-4.8) k/uL APTT (22.0-30.0) sec ABG pH 7.20 L (7.35-7.45) ABG pCO2 53 H (35-45) mmHg ABG pO2 109 H (83-108) mmHg ABG O2 Saturation (94-97) % Sodium (137-145) mmol/L Chloride (98-107) mmol/L Carbon Dioxide (22-30) mmol/L BUN (9-20) mg/dL Creatinine (0.66-1.25) mg/dL Glucose (74-99) mg/dL POC Glucose (mg/dL) (75-99) mg/dL Plasma Lactic Acid Luis 2.2 H* (0.7-2.0) mmol/L Calcium (8.4-10.2) mg/dL Magnesium (1.6-2.3) mg/dL AST (17-59) U/L Troponin I 14.400 H* (0.000-0.034) ng/mL Total Protein (6.3-8.2) g/dL Albumin (3.5-5.0) g/dL 05/11/18 05/11/18 Range/Units 15:14 16:03 RBC (4.30-5.90) m/uL Hgb (13.0-17.5) gm/dL Hct (39.0-53.0) % Lymphocytes # (1.0-4.8) k/uL APTT (22.0-30.0) sec ABG pH 7.25 L (7.35-7.45) ABG pCO2 49 H (35-45) mmHg ABG pO2 116 H (83-108) mmHg ABG O2 Saturation 97.8 H (94-97) % Sodium (137-145) mmol/L Chloride (98-107) mmol/L Carbon Dioxide (22-30) mmol/L BUN (9-20) mg/dL Creatinine (0.66-1.25) mg/dL Glucose (74-99) mg/dL POC Glucose (mg/dL) 143 H (75-99) mg/dL Plasma Lactic Acid Luis (0.7-2.0) mmol/L Calcium (8.4-10.2) mg/dL Magnesium (1.6-2.3) mg/dL AST (17-59) U/L Troponin I (0.000-0.034) ng/mL Total Protein (6.3-8.2) g/dL Albumin (3.5-5.0) g/dL Thrombosis Risk Factor Assmnt - DVT/VTE Prophylaxis DVT/VTE Prophylaxis: Pharmacologic Prophylaxis ordered Assessment and Plan Assessment: Acute hypoxic respiratory failure secondary to pneumonia likely HCAP. Possible aspiration due to underlying dementia and vomiting at [place]. Sepsis/septic shock requiring pressor support Elevated troponin due to NSTEMI Possible acute CHF. Ejection fraction unknown. Elevated B[place], [address] on admission. Acute on chronic kidney disease due to sepsis Hypernatremia secondary to volume depletion Dementia with history of behavioral changes/combative intermittently. Hyperlipidemia History of DVT Osteoarthritis Hypothyroidism History of diverticulitis History of gout Cervical disc degenerative disease Varicose veins Previous history of smoking Plan: Patient will be continued on mechanical ventilator. Continue with pressor support/Levophed and titrated down slowly. Critical care team is on board. Continue with broad-spectrum antibiotics in the form of vancomycin and cefepime. Continue with heparin drip. Cardiology will be consulted. Continue to follow closely and further recommendations based on the clinical course. Prognosis is guarded. Discussed with his and daughter at bedside in detail. Time with Patient: Greater than 30
[2018-05-12] MEDS: CEFEPIME 2 GM in SODIUM CHLORIDE 0.9% 100 ML IVPB SCH ×2 (00:08→08:43)
[2018-05-12] MEDS: methylPREDNISolone SOD SUCCI 40 MG/ML 1 ML VIAL IV SCH ×3 (00:08→16:18)
[2018-05-12] MEDS: PROPOFOL 1,000 MG in EMPTY BAG 1 BAG IV SCH ×3 (00:25→21:47)
[2018-05-12 02:36] LABS: Glucose,Whole Blood 188 mg/dL (75-99)
[2018-05-12 04:11] LABS: Hemoglobin A1C 6.2 % (4.0-6.0)
[2018-05-12] MEDS: INSULIN ASPART (NovoLOG) 100 UNIT/ML VIAL SQ SCH ×3 (05:59→17:01)
[2018-05-12] MEDS ORDERED: VANCOMYCIN 1,250 MG in SODIUM CHLORIDE 0.9% 250 ML IVPB SCH (06:00)
[2018-05-12 06:04] LABS: Glucose,Whole Blood 180 mg/dL (75-99)
[2018-05-12 06:06] LABS: Basophils % (A) 0 %; Eosinophils % (A) 0 %; HCT 31.3 % (39.0-53.0); HGB 10.1 gm/dL (13.0-17.5); Hypochromasia Slight; Lymphocytes # (A) 0.7 k/uL (1.0-4.8); Lymphocytes % (A) 13 %; MCHC 32.4 g/dL (31.0-37.0); MCV 98.7 fL (80.0-100.0); Monocytes # (A) 0.2 k/uL (0-1.0); Monocytes % (A) 3 %; Neutrophils # (A) 4.3 k/uL (1.3-7.7); Neutrophils % (A) 83 %; Platelet Count 249 k/uL (150-450); RBC 3.17 m/uL (4.30-5.90); RDW 13.9 % (11.5-15.5); WBC 5.2 k/uL (3.8-10.6)
--- NOTE | 2018-05-12 07:08 | XR ---
EXAMINATION TYPE: XR chest 1V portable DATE OF EXAM: 05/12/2018 COMPARISON: 05/11/2018 HISTORY: Ventilatory dependent respiratory failure TECHNIQUE: Single frontal view of the chest is obtained. FINDINGS: Enteric tube and endotracheal tubes as well as the right subclavian central venous cathete r appear essentially unchanged in the interim. There remains diffuse interstitial prominence througho ut, similar to the prior however the confluent opacities in the right infrahilar region and left lowe r lung have resolved in the interim as well as a trace left pleural effusion. 30 mediastinal silhouet te is within normal limits. Osseous structures are grossly intact with degenerative changes of the sp ine. IMPRESSION: Resolution of the previously seen bibasilar opacities and left pleural effusion. Mild in terstitial pulmonary edema remains.
[2018-05-12 07:10] LABS: ABG Base Excess -7.7 mmol/L; ABG HCO3 18 mmol/L (21-25); ABG PCO2 33 mmHg (35-45); ABG PH 7.34 (7.35-7.45); ABG PO2 157 mmHg (83-108); ABG TCO2 19 mmol/L (19-24)
[2018-05-12] MEDS: BUDESONIDE 0.5 MG/2 ML NEBU INHALATION SCH ×2 (07:13→19:06)
[2018-05-12] MEDS: IPRATROPIUM-ALBUTEROL 3 ML NEB INHALATION PRN ×5 (07:13→23:09)
[2018-05-12 07:18] LABS: Calcium 7.5 mg/dL (8.4-10.2); Magnesium 2.6 mg/dL (1.6-2.3); Phosphorus 4.6 mg/dL (2.5-4.5); Potassium 4.3 mmol/L (3.5-5.1)
[2018-05-12] MEDS: CHLORHEXIDINE GLUCONATE 15 ML CUP MUCOUS MEM SCH ×2 (08:42→20:47)
[2018-05-12] MEDS: PANTOPRAZOLE 40 MG/10 ML VIAL IV SCH (08:43)
[2018-05-12] MEDS: ATORVASTATIN 40 MG TAB PO SCH (08:43)
[2018-05-12] MEDS: ASPIRIN 81 MG PO SCH (08:43)
[2018-05-12] MEDS: SODIUM CHLORIDE 0.9% 1,000 ML IV SCH (08:47)
[2018-05-12] MEDS ORDERED: FUROSEMIDE 10 MG/ML 2 ML VIAL IV SCH (09:00)
[2018-05-12] MEDS ORDERED: DEXTROSE 5% IN WATER 1,000 ML IV ONE (09:35)
--- NOTE | 2018-05-12 10:18 | PN ---
PROGRESS NOTE Mr. Biswas is an 83-year-old male who was transferred yesterday from [place] with respiratory failure after being admitted for 2 days. He was presented with community- acquired pneumonia. He has had evidence of elevation of NT proBNP as well as troponin. He remains intubated and sedated. He is on no pressors. He is in sinus mechanism and there is no evidence of ventricular ectopic activity. Hemodynamically, he is stable. His urine output has decreased. He continues to be at this time on aspirin once a day, Lipitor 40 mg daily, Lasix 40 mg IV q.12 hours. PHYSICAL EXAMINATION: Blood pressure 118/50 with the heart rate in 90s. LUNGS: Clear to auscultation anteriorly. HEART: Regular rate and rhythm. S1, S2. No S3. No rub appreciated with a systolic murmur. ABDOMEN: Soft. Positive bowel sounds. No organomegaly. EXTREMITIES: No edema. LAB DATA: Lab data revealed peak troponin of 14.4 is down to 12.4. Chest x-ray revealed improvement in the infiltrate. IMPRESSION: 1. Respiratory failure with pneumonia. 2. Congestive heart failure with elevation NT proBNP. The left ventricular systolic function evaluation is not available. 3. Evidence of non ST-segment elevation myocardial infarction. His EKG revealed T- wave inversion anteriorly. 4. Renal failure of unknown duration. 5. History of dementia. RECOMMENDATION: We will obtain echocardiogram with Doppler today. I will cut down the dose of his diuretics. We will review the results of his lab data and his echocardiogram. Unfortunately, the prognosis remains quite guarded. MMODL / IJN: [id number] /
--- NOTE | 2018-05-12 11:23 | ECHOF ---
Referral Reason:kaya MEASUREMENTS -------- HEIGHT: 175.3 cm WEIGHT: 68.0 kg BP: 95/60 RVIDd: 3.1 cm (< 3.3) IVSd: 1.1 cm (0.6 - 1.1) LVIDd: 5.1 cm (3.9 - 5.3) LVPWd: 1.3 cm (0.6 - 1.1) IVSs: 1.8 cm LVIDs: 3.2 cm LVPWs: 1.4 cm LA Diam: 3.5 cm (2.7 - 3.8) Ao Diam: 3.3 cm (2.0 - 3.7) AV Cusp: 1.7 cm (1.5 - 2.6) MV EXCURSION: 21.866 mm (> 18.000) MV EF SLOPE: 156 mm/s (70 - 150) EPSS: 0.2 cm MV E Calvin: 1.10 m/s MV DecT: 133 ms MV A Calvin: 0.84 m/s MV E/A Ratio: 1.32 RAP: 5.00 mmHg RVSP: 45.24 mmHg FINDINGS -------- Resting tachycardia (HR>100bpm). This was a technically difficult study with suboptimal views. The left ventricular size is normal. There is mild concentric left ventricular hypertrophy. Overa ll left ventricular systolic function is moderate-severely impaired with, an EF between 30 - 35 %.sve re extensive ant apical hypokinesia. The right ventricle is normal in size. The left atrial size is normal. The right atrium is normal in size. There is mild aortic valve sclerosis. The mitral valve leaflets are mildly thickened. Mild mitral annular calcification present. Mild m itral regurgitation is present. Mild tricuspid regurgitation present. There is mild to moderate pulmonary hypertension. The right ventricular systolic pressure, as measured by Doppler, is 45.24mmHg. The pulmonic valve was not well visualized. The aortic root, ascending aorta and aortic arch are normal. IVC Not well visulized. There is no pericardial effusion. CONCLUSIONS -------- 1. Resting tachycardia (HR>100bpm). 2. This was a technically difficult study with suboptimal views. 3. The left ventricular size is normal. 4. There is mild concentric left ventricular hypertrophy. 5. Overall left ventricular systolic function is moderate-severely impaired with, an EF between 30 - 35 %. 6. The right ventricle is normal in size. 7. The left atrial size is normal. 8. The right atrium is normal in size. 9. There is mild aortic valve sclerosis. 10. The mitral valve leaflets are mildly thickened. 11. Mild mitral annular calcification present. 12. Mild mitral regurgitation is present. 13. Mild tricuspid regurgitation present. 14. There is mild to moderate pulmonary hypertension. 15. The right ventricular systolic pressure, as measured by Doppler, is 45.24mmHg. 16. The pulmonic valve was not well visualized. 17. The aortic root, ascending aorta and aortic arch are normal. 18. IVC Not well visulized. 19. There is no pericardial effusion. CHILDREN LIBRARIAN: Sarah Mujica RDCS
[2018-05-12 12:01] LABS: Glucose,Whole Blood 183 mg/dL (75-99)
[2018-05-12] MEDS: NOREPINEPHRINE 4 MG in SODIUM CHLORIDE 0.9% 250 ML IV SCH (12:11)
[2018-05-12] MEDS: PIPERACILLIN-TAZOBACTAM 3.375 GM in SODIUM CHLORIDE 0.9% 100 ML IVPB SCH ×2 (12:12→16:18)
[2018-05-12] MEDS ORDERED: LEVOFLOXACIN 500MG-D5W PMX 500 MG in DEXTROSE/WATER 1 100ML.BAG IVPB SCH (14:00)
--- NOTE | 2018-05-12 15:38 | P.PN ---
Subjective Progress Note Date: 05/12/18 Principal diagnosis: acute hypoxic respiratory failure secondary to pneumonia and congestive heart failure This is an 83-year-old white male with history of chronic kidney disease stage III, dementia, degenerative joint disease and previous knee replacement, patient resides at [facility] and he was found today's ago by caregivers as having difficulty breathing and shortness of breath. He was also febrile, and was developing more lethargy. He had 2 episodes of emesis. Patient was taken to [place] emergency room. He was found to have multiple medical problems including pneumonia, sepsis, acute urinary tract infection, patient was admitted placed on Rocephin and clindamycin, felt the patient may have had aspiration pneumonia. At any rate patient's condition was deteriorating over the last 2 days, and arrangements were made for the patient to transfer to [facility]. He was placed on BiPAP, and as he arrived to the ER, he was noted to be in extreme respiratory distress. He was intubated by the ER physician immediately if. Apparently he had a DO NOT RESUSCITATE CODE STATUS prior to transfer, but on the way down here his reversed his CODE STATUS to full code. Patient was intubated placed on mechanical ventilation, a right subclavian central line was placed by the ER physician. The patient was relatively hypotensive requiring pressors and eventually transferred to the ICU. I didn't evaluate the patient in the ICU, reviewed her chest x-ray, labs, right radial arterial line was placed, and repeat blood gases were done ventilator settings will be adjusted accordingly. He is presently on 100% FiO2, assist control rate of 20 tidal volume of 500 PEEP of 8. Repeat ABG is pending patient is sedated, presently on mechanical ventilation. And not much history could be obtained other than what I have reviewed in the chart from [place] and from our ER physician. Chest x-ray showed increase central hilar lung markings and diffuse infiltrates bilaterally , the chest x-ray is consistent with bilateral pneumonia, however interstitial edema is not ruled out. There is also small left pleural effusion noted. Patient was reevaluated today on 05/12/2018, remains on mechanical ventilation. His ventilator settings are assist control rate of 20 volume of 550 FiO2 of 45% and PEEP is 5. Remains on propofol at 25 mcg/kg/m, not requiring any norepinephrine at present.chest x-ray is showing definite improvement in his bilateral pneumonia and interstitial edema. His labs showed relatively normal CBC, hemoglobin is 10.1. ABG this morning showed a pO2 of 157 pCO2 of 33 pH of 7.34 hence the PEEP was cut down to 5 from 8 and the FiO2 was cut down from 50% to 45%. His electrolytes however showed hypernatremia hyperchloremia and hyperchloremic metabolic acidosis non-anion gap. His IV fluid was changed to D5W. And it's will remain at the same rate at 100 mL per hour. Urine output seems to be marginal. His renal functioning iis slightly worse today, 1.53 creatinine, it was 1.26 yesterday.clearly the patient developed acute kidney injury, and hoping that we would hold diuretics, will give the patient fluids to correct his renal profile and correct his hypernatremia.troponin is still elevated today at 12.4.patient was given a trial of weaning off propofol, however he became extremely agitated, restless, and was not synchronizing with the vent. Objective - Vital Signs Vital signs: Vital Signs Temp 98.1 F 05/12/18 12:00 Pulse 82 05/12/18 15:03 Resp 19 05/12/18 14:30 BP 113/66 05/12/18 14:30 Pulse Ox 97 05/12/18 14:30 Intake & Output 05/11/18 05/12/18 05/12/18 18:59 06:59 18:59 Intake Total 460.854 7137.226 1067 Output Total 160 579 297 Balance 260.724 948.226 770 Weight 68.039 kg 68.2 kg 68.2 kg Intake: IV 265 1270 892 Cefepime 2 gm In Sodium 100 Chloride 0.9% 100 ml @ 200 mls/hr IVPB Q8HR GHISLAINE Rx#:[id number] Dextrose 5% in Water 1, 500 000 ml @ 100 mls/hr IV . Q10H ONE Rx#:[id number] Dextrose 5%-0.45% NaCl 1, 40 220 000 ml @ 20 mls/hr IV . Q24H GHISLAINE Rx#:[id number] Sodium Chloride 0.9% 1, 225 825 225 000 ml @ 75 mls/hr IV . [id number] GHISLAINE Rx#:[id number] Vancomycin 1,250 mg In 125 125 Sodium Chloride 0.9% 250 ml @ 125 mls/hr IVPB Q24H GHISLAINE Rx#:[id number] pressure bag 42 Intake, IV Titration 155.724 257.226 175 Amount Cefepime 2 gm In Sodium 100 100 Chloride 0.9% 100 ml @ 200 mls/hr IVPB Q8HR GHISLAINE Rx#:[id number] Heparin Sod,Pork in 0.45% 63.546 NaCl 25,000 unit In 0.45 % NaCl 1 250ml.bag @ 12 UNITS/KG/HR 8.16 mls/hr IV .Q24H GHISLAINE Rx#: [id number] Norepinephrine 4 mg In 51.916 82.976 Sodium Chloride 0.9% 250 ml @ 0.05 MCG/KG/MIN 12. 96 mls/hr IV .[id number] GHISLAINE Rx#:[id number] Piperacillin-Tazobactam 3 75 .375 gm In Sodium Chloride 0.9% 100 ml @ 25 mls/hr IVPB Q8HR GHISLAINE Rx# :[id number] Propofol 1,000 mg In 3.808 110.704 Empty Bag 1 bag @ Titrate IV .Q0M GHISLAINE Rx#: [id number] Output: Gastric Drainage 50 Urine 160 529 297 Other: Voiding Method Indwelling Catheter Indwelling Catheter Indwelling Catheter ABP, PAP, CO, CI - Last Documented Arterial Blood Pressure 120/49 - Exam Physical Exam: Revealed an 83-year-old white male on mechanical ventilation, sedated, in no distress.noted to be quite agitated off propofol. Head: Atraumatic normocephalic. HEENT:[Neck is supple.] [No neck masses.] [No thyromegaly.] [No JVD.] PERRLA, EOMI, no icterus. Endotracheal tube and orogastric tube are noted to be intact Chest: [very minimal crackles at the bases, no rhonchi and no wheezes. Symmetrical chest expansion, no chest wall tenderness, right infraclavicular subclavian central line noted.unchanged..] Cardiac Exam: [Normal S1 and S2, no S3 gallop, 2/6 systolic murmur thought the precordium. Abdomen: [Soft, nontender, no megaly, no rebound, no guarding, normal bowel sounds.] Extremities: [No clubbing, no edema, no cyanosis.] Good pulses bilaterally in upper and lower extremities. Neurological Exam: Not be assessed, patient is sedated, patient is known to have history of some profound dementia according to family members at bedside today Skin: No rashes. Psychiatric: Could not be assessed. Lymphatics: No lymphadenopathy. - Labs CBC & Chem 7: 05/12/18 05:50 05/12/18 05:50 Labs: Abnormal Lab Results - Last 24 Hours (Table) 05/11/18 05/11/18 05/11/18 Range/Units 15:14 16:03 19:25 RBC (4.30-5.90) m/uL Hgb (13.0-17.5) gm/dL Hct (39.0-53.0) % Lymphocytes # (1.0-4.8) k/uL APTT (22.0-30.0) sec ABG pH 7.25 L (7.35-7.45) ABG pCO2 49 H (35-45) mmHg ABG pO2 116 H (83-108) mmHg ABG HCO3 (21-25) mmol/L ABG O2 Saturation 97.8 H (94-97) % Sodium (137-145) mmol/L Chloride (98-107) mmol/L Carbon Dioxide (22-30) mmol/L BUN (9-20) mg/dL Creatinine (0.66-1.25) mg/dL Glucose (74-99) mg/dL POC Glucose (mg/dL) 143 H (75-99) mg/dL Hemoglobin A1c (4.0-6.0) % Calcium (8.4-10.2) mg/dL Phosphorus (2.5-4.5) mg/dL Magnesium (1.6-2.3) mg/dL Troponin I 14.000 H* (0.000-0.034) ng/mL 05/11/18 05/11/18 05/12/18 Range/Units 21:30 21:30 02:20 RBC (4.30-5.90) m/uL Hgb (13.0-17.5) gm/dL Hct (39.0-53.0) % Lymphocytes # (1.0-4.8) k/uL APTT 39.1 H (22.0-30.0) sec ABG pH (7.35-7.45) ABG pCO2 (35-45) mmHg ABG pO2 (83-108) mmHg ABG HCO3 (21-25) mmol/L ABG O2 Saturation (94-97) % Sodium (137-145) mmol/L Chloride (98-107) mmol/L Carbon Dioxide (22-30) mmol/L BUN (9-20) mg/dL Creatinine (0.66-1.25) mg/dL Glucose (74-99) mg/dL POC Glucose (mg/dL) (75-99) mg/dL Hemoglobin A1c 6.2 H (4.0-6.0) % Calcium (8.4-10.2) mg/dL Phosphorus (2.5-4.5) mg/dL Magnesium (1.6-2.3) mg/dL Troponin I 12.400 H* (0.000-0.034) ng/mL 05/12/18 05/12/18 05/12/18 Range/Units 02:24 05:50 05:50 RBC 3.17 L (4.30-5.90) m/uL Hgb 10.1 L (13.0-17.5) gm/dL Hct 31.3 L (39.0-53.0) % Lymphocytes # 0.7 L (1.0-4.8) k/uL APTT (22.0-30.0) sec ABG pH (7.35-7.45) ABG pCO2 (35-45) mmHg ABG pO2 (83-108) mmHg ABG HCO3 (21-25) mmol/L ABG O2 Saturation (94-97) % Sodium 149 H (137-145) mmol/L Chloride 122 H (98-107) mmol/L Carbon Dioxide 18 L (22-30) mmol/L BUN 59 H (9-20) mg/dL Creatinine 1.53 H (0.66-1.25) mg/dL Glucose 176 H (74-99) mg/dL POC Glucose (mg/dL) 188 H (75-99) mg/dL Hemoglobin A1c (4.0-6.0) % Calcium 7.5 L (8.4-10.2) mg/dL Phosphorus 4.6 H (2.5-4.5) mg/dL Magnesium 2.6 H (1.6-2.3) mg/dL Troponin I (0.000-0.034) ng/mL 05/12/18 05/12/18 05/12/18 Range/Units 05:53 07:04 09:10 RBC (4.30-5.90) m/uL Hgb (13.0-17.5) gm/dL Hct (39.0-53.0) % Lymphocytes # (1.0-4.8) k/uL APTT 52.1 H (22.0-30.0) sec ABG pH 7.34 L (7.35-7.45) ABG pCO2 33 L (35-45) mmHg ABG pO2 157 H (83-108) mmHg ABG HCO3 18 L (21-25) mmol/L ABG O2 Saturation 99.0 H (94-97) % Sodium (137-145) mmol/L Chloride (98-107) mmol/L Carbon Dioxide (22-30) mmol/L BUN (9-20) mg/dL Creatinine (0.66-1.25) mg/dL Glucose (74-99) mg/dL POC Glucose (mg/dL) 180 H (75-99) mg/dL Hemoglobin A1c (4.0-6.0) % Calcium (8.4-10.2) mg/dL Phosphorus (2.5-4.5) mg/dL Magnesium (1.6-2.3) mg/dL Troponin I (0.000-0.034) ng/mL 05/12/18 Range/Units 11:49 RBC (4.30-5.90) m/uL Hgb (13.0-17.5) gm/dL Hct (39.0-53.0) % Lymphocytes # (1.0-4.8) k/uL APTT (22.0-30.0) sec ABG pH (7.35-7.45) ABG pCO2 (35-45) mmHg ABG pO2 (83-108) mmHg ABG HCO3 (21-25) mmol/L ABG O2 Saturation (94-97) % Sodium (137-145) mmol/L Chloride (98-107) mmol/L Carbon Dioxide (22-30) mmol/L BUN (9-20) mg/dL Creatinine (0.66-1.25) mg/dL Glucose (74-99) mg/dL POC Glucose (mg/dL) 183 H (75-99) mg/dL Hemoglobin A1c (4.0-6.0) % Calcium (8.4-10.2) mg/dL Phosphorus (2.5-4.5) mg/dL Magnesium (1.6-2.3) mg/dL Troponin I (0.000-0.034) ng/mL Microbiology - Last 24 Hours (Table) 05/11/18 19:57 Gram Stain - Preliminary Sputum Sputum Culture - Preliminary Assessment and Plan Assessment: Impression: 1 acute hypoxic respiratory failure secondary to pneumonia, healthcare acquired type of pneumonia since the patient was in a shelter facility. Although aspiration pneumonia is also very likely considering the patient has underlying dementia and he had few episodes of emesis before he was brought into the ER in [place]. 2 acute sepsis secondary to pneumonia, other sources could also be the urine. 3 suspect some component of congestive heart failure, this is clearly systolic congestive heart failure, his echocardiogram today showed LV dysfunction, ejection fraction if 30-35%. 4 history of dementia 5 degenerative joint disease and previous knee replacement./Left knee 6 chronic kidney disease stage III 7 acute non-ST elevation myocardial infarction is strongly suspected based on the fact the patient had elevated troponin 8 history of hypothyroidism 9 history of deep vein thrombosis 10 history of asthma as documented in the chart, however severity of which is not clear. recommendation: Continue ventilatory support, nutritional support via enteral feeding, continue GI and DVT prophylaxis, continue antibiotics, hold diuretics for now, continue heparin as per cardiology. Change IV fluid to D5W hoping to address his hypernatremia. Continue to monitor renal profile on a daily basis. Hemodynamic support if necessary with pressors, presently off pressors.continue daily interruption of sedation and assessment for weaning updated his family today on his condition, he remains full code at present, discussed the CODE STATUS with the , and updated her on his overall status and his diagnosis. Patient will remain in the ICU remains full code at present as per , will follow closely. Patient remains critically ill, prognosis is guarded. Critical care time is 45 minutes. Time with Patient: Greater than 30
[2018-05-12] MEDS: HEPARIN SOD,PORK IN 0.45% NACL 25,000 UNIT in 0.45% NACL 1 250ML.BAG IV SCH (16:21)
[2018-05-12 17:10] LABS: Glucose,Whole Blood 230 mg/dL (75-99)
[2018-05-12 21:04] LABS: HCT 28.8 % (39.0-53.0); Hypochromasia Moderate; MCH 30.9 pg (25.0-35.0); MCHC 31.3 g/dL (31.0-37.0); MCV 98.6 fL (80.0-100.0); Mean Platelet Volume 8.9; Platelet Count 190 k/uL (150-450); RBC 2.92 m/uL (4.30-5.90); WBC 5.5 k/uL (3.8-10.6)
[2018-05-12 21:11] LABS: Potassium 3.2 mmol/L (3.5-5.1); Total Bilirubin 0.3 mg/dL (0.2-1.3)
[2018-05-12] MEDS ORDERED: Potassium Replacement Protocol 1 EACH MISC MISCELLANE PRN (21:50)
[2018-05-12] MEDS: POTASSIUM BICARBONATE/CIT AC 20 MEQ TABLET.EFF NG-TUBE SCH (22:14)
--- NOTE | 2018-05-12 22:34 | P.PN ---
Subjective Progress Note Date: 05/12/18 Principal diagnosis: Acute hypoxic respiratory failure secondary to bilateral pneumonia Acute CHF with ejection fraction unknown Acute non-ST elevated IA Patient is a 83-year-old male with a known history of dementia, asthma, history of DVT, memory impairment, osteoarthritis and chronic kidney disease who has been staying at [facility] for the past 2 months was initially transferred to [facility] due to patient being very lethargic and confused and difficulty breathing. Patient also had 1 episode of vomiting. Patient is also febrile when he presented to ER. Patient was initially seen on 05/09/2018 at [facility]. Patient was being treated for pneumonia with Cleocin and ceftriaxone. Today patient condition is deteriorated with worsening chest x-ray findings of bilateral pneumonia. Patient was placed on BiPAP machine and eventually transferred to [facility] ER. Patient was also given a dose of vancomycin at [facility]. Upon arrival to ER patient was found to be hypoxic and was intubated in the ER. Patient was also started on Levophed in the ER. Patient was DO NOT RESUSCITATE/DO NOT INTUBATE prior to transfer but on the way patient's reversed his CODE STATUS to full code. Chest x-ray showed increased central hilar lung markings and diffuse infiltrates bilaterally. Chest x-ray consistent with bilateral pneumonia however interstitial edema is not ruled out. Small left pleural effusion. Troponin 14.4 03/11/2019 Patient is currently on mechanical ventilator. Levophed has been tapered off area and. Currently being sedated with propofol. Patient is being continued on antibiotics in the form of vancomycin and cefepime. IV fluids have been changed to D5 water due to hypernatremia. Creatinine 1.53. Diuretics have been held at this time. Patient has been afebrile. Troponin 12.0 today. Patient is being continued on heparin drip. Pulmonary and cardiology is following. Review of systems could not be obtained from the patient. Current medications reviewed. Objective - Vital Signs Vital signs: Vital Signs Temp 96.7 F L 05/12/18 21:00 Pulse 85 05/12/18 21:00 Resp 14 05/12/18 21:00 BP 112/61 05/12/18 19:45 Pulse Ox 98 05/12/18 21:00 Intake & Output 02/15/19 02/15/19 02/16/19 06:59 18:59 06:59 Intake Total 3132.031 5404.175 703 Output Total 579 449 106 Balance 279.474 1866.175 597 Weight 68.2 kg 68.2 kg Intake: IV 1270 1316 318 Cefepime 2 gm In Sodium 100 Chloride 0.9% 100 ml @ 200 mls/hr IVPB Q8HR [facility] Rx#:[id number] Dextrose 5% in Water 1, 900 300 000 ml @ 100 mls/hr IV . Q10H [facility] Rx#:[id number] Dextrose 5%-0.45% NaCl 1, 220 000 ml @ 20 mls/hr IV . Q24H [facility] Rx#:[id number] Sodium Chloride 0.9% 1, 825 225 000 ml @ 75 mls/hr IV . [id number] [facility] Rx#:[id number] Vancomycin 1,250 mg In 125 125 Sodium Chloride 0.9% 250 ml @ 125 mls/hr IVPB Q24H [facility] Rx#:[id number] pressure bag 66 18 Intake, IV Titration 257.226 543.175 125 Amount Cefepime 2 gm In Sodium 100 Chloride 0.9% 100 ml @ 200 mls/hr IVPB Q8HR [facility] Rx#:[id number] Heparin Sod,Pork in 0.45% 63.546 168.175 NaCl 25,000 unit In 0.45 % NaCl 1 250ml.bag @ 12 UNITS/KG/HR 8.16 mls/hr IV .Q24H [facility] Rx#: [id number] Levofloxacin 250Mg-D5w 100 Pmx 250 mg In Dextrose/ Water 1 50ml.bag @ 50 mls /hr IVPB Q24H [facility] Rx#: [id number] Norepinephrine 4 mg In 82.976 Sodium Chloride 0.9% 250 ml @ 0.05 MCG/KG/MIN 12. 96 mls/hr IV .[id number] [facility] Rx#:[id number] Piperacillin-Tazobactam 3 175 25 .375 gm In Sodium Chloride 0.9% 100 ml @ 25 mls/hr IVPB Q8HR [facility] Rx# :[id number] Propofol 1,000 mg In 110.704 100 Empty Bag 1 bag @ Titrate IV .Q0M [facility] Rx#: [id number] Tube Feeding 270 160 Other 30 100 Output: Gastric Drainage 50 Urine 529 449 106 Other: Voiding Method Indwelling Catheter Indwelling Catheter ABP, PAP, CO, CI - Last Documented Arterial Blood Pressure 146/54 - Exam PHYSICAL EXAMINATION: Patient is lying in the bed . Currently sedated and intubated. HEENT: Normocephalic. Neck is supple. Pupils reactive. Nostrils clear. Oral cavity is moist. Ears reveal no drainage. Neck reveals no JVD, carotid bruits, or thyromegaly. CHEST EXAMINATION: Trachea is central. Tracheal tube in place. Symmetrical expansion. Bilateral diffuse rhonchi. No wheezing.. CARDIAC: Normal S1, S2 with no gallops. No murmurs ABDOMEN: Soft. Bowel sounds normal. No organomegaly. No abdominal bruits. Extremities: Trace edema. No clubbing or cyanosis Neurologically. Patient is currently sedated and intubated. No gross focal deficits noted Skin: No rash or skin lesions. Psychiatric: Could not be assessed. Musculoskeletal: No joint swelling or deformity. - Labs CBC & Chem 7: 05/12/18 20:55 05/12/18 20:55 Labs: Abnormal Lab Results - Last 24 Hours (Table) 05/11/18 05/11/18 05/12/18 Range/Units 21:30 21:30 02:20 RBC (4.30-5.90) m/uL Hgb (13.0-17.5) gm/dL Hct (39.0-53.0) % Lymphocytes # (1.0-4.8) k/uL APTT 39.1 H (22.0-30.0) sec ABG pH (7.35-7.45) ABG pCO2 (35-45) mmHg ABG pO2 (83-108) mmHg ABG HCO3 (21-25) mmol/L ABG O2 Saturation (94-97) % Sodium (137-145) mmol/L Potassium (3.5-5.1) mmol/L Chloride (98-107) mmol/L Carbon Dioxide (22-30) mmol/L BUN (9-20) mg/dL Creatinine (0.66-1.25) mg/dL Glucose (74-99) mg/dL POC Glucose (mg/dL) (75-99) mg/dL Hemoglobin A1c 6.2 H (4.0-6.0) % Calcium (8.4-10.2) mg/dL Phosphorus (2.5-4.5) mg/dL Magnesium (1.6-2.3) mg/dL Troponin I 12.400 H* (0.000-0.034) ng/mL Total Protein (6.3-8.2) g/dL Albumin (3.5-5.0) g/dL 05/12/18 05/12/18 05/12/18 Range/Units 02:24 05:50 05:50 RBC 3.17 L (4.30-5.90) m/uL Hgb 10.1 L (13.0-17.5) gm/dL Hct 31.3 L (39.0-53.0) % Lymphocytes # 0.7 L (1.0-4.8) k/uL APTT (22.0-30.0) sec ABG pH (7.35-7.45) ABG pCO2 (35-45) mmHg ABG pO2 (83-108) mmHg ABG HCO3 (21-25) mmol/L ABG O2 Saturation (94-97) % Sodium 149 H (137-145) mmol/L Potassium (3.5-5.1) mmol/L Chloride 122 H (98-107) mmol/L Carbon Dioxide 18 L (22-30) mmol/L BUN 59 H (9-20) mg/dL Creatinine 1.53 H (0.66-1.25) mg/dL Glucose 176 H (74-99) mg/dL POC Glucose (mg/dL) 188 H (75-99) mg/dL Hemoglobin A1c (4.0-6.0) % Calcium 7.5 L (8.4-10.2) mg/dL Phosphorus 4.6 H (2.5-4.5) mg/dL Magnesium 2.6 H (1.6-2.3) mg/dL Troponin I (0.000-0.034) ng/mL Total Protein (6.3-8.2) g/dL Albumin (3.5-5.0) g/dL 05/12/18 05/12/18 05/12/18 Range/Units 05:53 07:04 09:10 RBC (4.30-5.90) m/uL Hgb (13.0-17.5) gm/dL Hct (39.0-53.0) % Lymphocytes # (1.0-4.8) k/uL APTT 52.1 H (22.0-30.0) sec ABG pH 7.34 L (7.35-7.45) ABG pCO2 33 L (35-45) mmHg ABG pO2 157 H (83-108) mmHg ABG HCO3 18 L (21-25) mmol/L ABG O2 Saturation 99.0 H (94-97) % Sodium (137-145) mmol/L Potassium (3.5-5.1) mmol/L Chloride (98-107) mmol/L Carbon Dioxide (22-30) mmol/L BUN (9-20) mg/dL Creatinine (0.66-1.25) mg/dL Glucose (74-99) mg/dL POC Glucose (mg/dL) 180 H (75-99) mg/dL Hemoglobin A1c (4.0-6.0) % Calcium (8.4-10.2) mg/dL Phosphorus (2.5-4.5) mg/dL Magnesium (1.6-2.3) mg/dL Troponin I (0.000-0.034) ng/mL Total Protein (6.3-8.2) g/dL Albumin (3.5-5.0) g/dL 05/12/18 05/12/18 05/12/18 Range/Units 11:49 16:59 20:55 RBC 2.92 L (4.30-5.90) m/uL Hgb 9.0 L (13.0-17.5) gm/dL Hct 28.8 L (39.0-53.0) % Lymphocytes # (1.0-4.8) k/uL APTT (22.0-30.0) sec ABG pH (7.35-7.45) ABG pCO2 (35-45) mmHg ABG pO2 (83-108) mmHg ABG HCO3 (21-25) mmol/L ABG O2 Saturation (94-97) % Sodium (137-145) mmol/L Potassium (3.5-5.1) mmol/L Chloride (98-107) mmol/L Carbon Dioxide (22-30) mmol/L BUN (9-20) mg/dL Creatinine (0.66-1.25) mg/dL Glucose (74-99) mg/dL POC Glucose (mg/dL) 183 H 230 H (75-99) mg/dL Hemoglobin A1c (4.0-6.0) % Calcium (8.4-10.2) mg/dL Phosphorus (2.5-4.5) mg/dL Magnesium (1.6-2.3) mg/dL Troponin I (0.000-0.034) ng/mL Total Protein (6.3-8.2) g/dL Albumin (3.5-5.0) g/dL 05/12/18 Range/Units 20:55 RBC (4.30-5.90) m/uL Hgb (13.0-17.5) gm/dL Hct (39.0-53.0) % Lymphocytes # (1.0-4.8) k/uL APTT (22.0-30.0) sec ABG pH (7.35-7.45) ABG pCO2 (35-45) mmHg ABG pO2 (83-108) mmHg ABG HCO3 (21-25) mmol/L ABG O2 Saturation (94-97) % Sodium (137-145) mmol/L Potassium 3.2 L (3.5-5.1) mmol/L Chloride 118 H (98-107) mmol/L Carbon Dioxide 17 L (22-30) mmol/L BUN 66 H (9-20) mg/dL Creatinine 1.36 H (0.66-1.25) mg/dL Glucose 238 H (74-99) mg/dL POC Glucose (mg/dL) (75-99) mg/dL Hemoglobin A1c (4.0-6.0) % Calcium 7.0 L (8.4-10.2) mg/dL Phosphorus (2.5-4.5) mg/dL Magnesium (1.6-2.3) mg/dL Troponin I (0.000-0.034) ng/mL Total Protein 4.0 L (6.3-8.2) g/dL Albumin 2.0 L (3.5-5.0) g/dL Microbiology - Last 24 Hours (Table) 05/11/18 16:37 Blood Culture - Preliminary Blood No Growth after 24 hours 05/11/18 16:37 Blood Culture - Preliminary Blood No Growth after 24 hours 05/11/18 19:57 Gram Stain - Preliminary Sputum Sputum Culture - Preliminary Assessment and Plan Assessment: Acute hypoxic respiratory failure secondary to pneumonia likely HCAP. Possible aspiration due to underlying dementia and vomiting at SC. Sepsis/septic shock requiring pressor support. Off pressor support now. Elevated troponin due to NSTEMI Possible acute CHF. Ejection fraction unknown. Elevated BNP, [address] on admission. Acute on chronic kidney disease due to sepsis. Creatinine1.2--1.53 Hypernatremia secondary to volume depletion Dementia with history of behavioral changes/combative intermittently. Hyperlipidemia History of DVT Osteoarthritis Hypothyroidism History of diverticulitis History of gout Cervical disc degenerative disease Varicose veins Previous history of smoking Plan: Patient will be continued on mechanical ventilator. Patient is off levophed currently. Critical care team is on board. Continue with broad-spectrum antibiotics in the form of vancomycin and cefepime. Continue with heparin drip. Cardiology will be consulted. Continue to follow closely and further recommendations based on the clinical course. Prognosis is guarded. Discussed with his and daughter at bedside in detail. Time with Patient: Greater than 30
[2018-05-12] MEDS ORDERED: INSULIN REGULAR 100 UNIT in SODIUM CHLORIDE 0.9% 100 ML IV SCH (23:45)
[2018-05-12 23:50] LABS: Glucose,Whole Blood 263 mg/dL (75-99)
[2018-05-12] MEDS ORDERED: INSULIN REGULAR BOLUS (FROM DRIP BAG) IV PRN (23:50)
[2018-05-13] MEDS: POTASSIUM BICARBONATE/CIT AC 20 MEQ TABLET.EFF NG-TUBE SCH (00:06)
[2018-05-13] MEDS: methylPREDNISolone SOD SUCCI 40 MG/ML 1 ML VIAL IV SCH ×3 (00:07→18:11)
[2018-05-13] MEDS: SODIUM CHLORIDE 0.45% 1,000 ML IV SCH ×3 (00:07→19:55)
[2018-05-13] MEDS: MORPHINE SULFATE 2 MG/ML SYRINGE IVP PRN ×2 (00:07→12:56)
[2018-05-13] MEDS: PIPERACILLIN-TAZOBACTAM 3.375 GM in SODIUM CHLORIDE 0.9% 100 ML IVPB SCH ×3 (00:08→18:11)
[2018-05-13] MEDS: NOREPINEPHRINE 4 MG in SODIUM CHLORIDE 0.9% 250 ML IV SCH (00:23)
[2018-05-13 00:24] LABS: Glucose,Whole Blood 261 mg/dL (75-99)
[2018-05-13 00:58] LABS: Glucose,Whole Blood 238 mg/dL (75-99)
[2018-05-13] MEDS ORDERED: LORazepam 2 MG/ML INJ IV PRN (01:14)
[2018-05-13 01:26] LABS: Glucose,Whole Blood 236 mg/dL (75-99)
[2018-05-13] MEDS: PROPOFOL 1,000 MG in EMPTY BAG 1 BAG IV SCH ×4 (01:53→21:12)
[2018-05-13 02:12] LABS: Glucose,Whole Blood 178 mg/dL (75-99)
[2018-05-13 03:10] LABS: Glucose,Whole Blood 153 mg/dL (75-99)
[2018-05-13] MEDS: IPRATROPIUM-ALBUTEROL 3 ML NEB INHALATION PRN ×6 (03:10→23:13)
[2018-05-13 04:29] LABS: Glucose,Whole Blood 132 mg/dL (75-99)
[2018-05-13 04:58] LABS: Appearance,Urine Clear (Clear); Bilirubin,Urine Negative (Negative); Blood,Urine Negative (Negative); Color,Urine Yellow; Glucose,Urine (UA) Negative (Negative); Ketones,Urine Negative (Negative); Leukocyte Esterase,Urine Negative (Negative); Nitrite,Urine Negative (Negative); Protein,Urine Trace (Negative); Specific Gravity,Urine 1.017 (1.001-1.035); Urobilinogen,Urine <2.0 mg/dL (<2.0)
[2018-05-13 05:02] LABS: Basophils % (A) 0 %; Eosinophils % (A) 0 %; HCT 28.4 % (39.0-53.0); Hypochromasia Slight; Lymphocytes # (A) 0.6 k/uL (1.0-4.8); Lymphocytes % (A) 7 %; MCHC 31.7 g/dL (31.0-37.0); MCV 98.1 fL (80.0-100.0); Mean Platelet Volume 8.4; Monocytes # (A) 0.4 k/uL (0-1.0); Monocytes % (A) 5 %; Neutrophils # (A) 6.9 k/uL (1.3-7.7); Neutrophils % (A) 86 %; Platelet Count 225 k/uL (150-450)
[2018-05-13 05:34] LABS: Glucose,Whole Blood 144 mg/dL (75-99)
[2018-05-13 05:45] LABS: Calcium 7.5 mg/dL (8.4-10.2); Magnesium 2.6 mg/dL (1.6-2.3); Phosphorus 3.5 mg/dL (2.5-4.5); Potassium 4.1 mmol/L (3.5-5.1)
--- NOTE | 2018-05-13 05:52 | XR ---
EXAM: XR Chest, 1 View @ 5:15 AM. CLINICAL HISTORY: OG tube placement post AM xr TECHNIQUE: Frontal view of the chest. COMPARISON: May 12, 2018. FINDINGS: Distal tip of enteric tube and first side-port are within the stomach. Remainder of support lines and tubes are little changed. Cardiac silhouette is within normal limits. Vascular congestion/edema again noted. Small left pleural effusion and left basilar atelectasis. Senescent changes. IMPRESSION: Distal tip of enteric tube within stomach. Remainder little changed.
[2018-05-13 06:09] LABS: Glucose,Whole Blood 186 mg/dL (75-99)
[2018-05-13 07:12] LABS: Glucose,Whole Blood 180 mg/dL (75-99)
[2018-05-13] MEDS: BUDESONIDE 0.5 MG/2 ML NEBU INHALATION SCH ×2 (07:15→19:05)
--- NOTE | 2018-05-13 07:19 | XR ---
EXAMINATION TYPE: XR chest 1V portable DATE OF EXAM: 05/13/2018 COMPARISON: 05/13/18 HISTORY: SOB, Follow Up FINDINGS: Indwelling tubes and catheters are unchanged. No change in bibasilar opacities. Stable appearance of the cardio-mediastinal structures at this time. Pleural effusion unchanged. IMPRESSION: 1. Stable portable chest. Clinical correlation and follow up until resolution is recommended.
[2018-05-13 08:22] LABS: ABG Base Excess -7.6 mmol/L; ABG HCO3 18 mmol/L (21-25); ABG Oxygen Saturation 99.5 % (94-97); ABG PCO2 31 mmHg (35-45); ABG PH 7.37 (7.35-7.45); ABG PO2 134 mmHg (83-108); ABG TCO2 19 mmol/L (19-24)
[2018-05-13 08:33] LABS: Glucose,Whole Blood 130 mg/dL (75-99)
[2018-05-13] MEDS: CHLORHEXIDINE GLUCONATE 15 ML CUP MUCOUS MEM SCH ×2 (08:52→20:00)
[2018-05-13] MEDS: PANTOPRAZOLE 40 MG/10 ML VIAL IV SCH (08:52)
[2018-05-13] MEDS: ATORVASTATIN 40 MG TAB PO SCH (08:52)
[2018-05-13] MEDS: ASPIRIN 81 MG PO SCH (08:52)
[2018-05-13 09:36] LABS: Glucose,Whole Blood 122 mg/dL (75-99)
[2018-05-13 09:57] VITALS: BP 96/53
[2018-05-13] MEDS ORDERED: FUROSEMIDE 10 MG/ML 2 ML VIAL IV ONE (11:39)
[2018-05-13] MEDS: SODIUM BICARBONATE TAB 650 MG TAB PO SCH ×3 (11:57→21:12)
--- NOTE | 2018-05-13 12:17 | P.PN ---
Subjective Progress Note Date: 05/13/18 Principal diagnosis: acute hypoxic respiratory failure secondary to pneumonia and congestive heart failure This is an 83-year-old white male with history of chronic kidney disease stage III, dementia, degenerative joint disease and previous knee replacement, patient resides at [facility] and he was found today's ago by caregivers as having difficulty breathing and shortness of breath. He was also febrile, and was developing more lethargy. He had 2 episodes of emesis. Patient was taken to [place] emergency room. He was found to have multiple medical problems including pneumonia, sepsis, acute urinary tract infection, patient was admitted placed on Rocephin and clindamycin, felt the patient may have had aspiration pneumonia. At any rate patient's condition was deteriorating over the last 2 days, and arrangements were made for the patient to transfer to [facility]. He was placed on BiPAP, and as he arrived to the ER, he was noted to be in extreme respiratory distress. He was intubated by the ER physician immediately if. Apparently he had a DO NOT RESUSCITATE CODE STATUS prior to transfer, but on the way down here his reversed his CODE STATUS to full code. Patient was intubated placed on mechanical ventilation, a right subclavian central line was placed by the ER physician. The patient was relatively hypotensive requiring pressors and eventually transferred to the ICU. I didn't evaluate the patient in the ICU, reviewed her chest x-ray, labs, right radial arterial line was placed, and repeat blood gases were done ventilator settings will be adjusted accordingly. He is presently on 100% FiO2, assist control rate of 20 tidal volume of 500 PEEP of 8. Repeat ABG is pending patient is sedated, presently on mechanical ventilation. And not much history could be obtained other than what I have reviewed in the chart from [place] and from our ER physician. Chest x-ray showed increase central hilar lung markings and diffuse infiltrates bilaterally , the chest x-ray is consistent with bilateral pneumonia, however interstitial edema is not ruled out. There is also small left pleural effusion noted. Patient was reevaluated today on 05/12/2018, remains on mechanical ventilation. His ventilator settings are assist control rate of 20 volume of 550 FiO2 of 45% and PEEP is 5. Remains on propofol at 25 mcg/kg/m, not requiring any norepinephrine at present.chest x-ray is showing definite improvement in his bilateral pneumonia and interstitial edema. His labs showed relatively normal CBC, hemoglobin is 10.1. ABG this morning showed a pO2 of 157 pCO2 of 33 pH of 7.34 hence the PEEP was cut down to 5 from 8 and the FiO2 was cut down from 50% to 45%. His electrolytes however showed hypernatremia hyperchloremia and hyperchloremic metabolic acidosis non-anion gap. His IV fluid was changed to D5W. And it's will remain at the same rate at 100 mL per hour. Urine output seems to be marginal. His renal functioning iis slightly worse today, 1.53 creatinine, it was 1.26 yesterday.clearly the patient developed acute kidney injury, and hoping that we would hold diuretics, will give the patient fluids to correct his renal profile and correct his hypernatremia.troponin is still elevated today at 12.4.patient was given a trial of weaning off propofol, however he became extremely agitated, restless, and was not synchronizing with the vent. Patient was reevaluated today on 05/13/2018, remains on mechanical ventilation, and his ventilator settings are basically unchanged as noted above. Remains on propofol which I plan to discontinue today, he is not requiring any pressors. Patient remains on tube feeding via orogastric tube. Chest x-ray continues to show improvement but not clear yet. Suspicious for underlying pneumonia most likely aspiration pneumonia.ABG this morning was noted pO2 of 134 pCO2 of 31 pH of 7.37.BUN was 68 creatinine 1.46.CBC is relatively normal.chest x-ray bibasilar opacities noted. Again relatively improved compared to admission chest x-ray. Objective - Vital Signs Vital signs: Vital Signs Temp 98.3 F 05/13/18 08:00 Pulse 92 05/13/18 11:28 Resp 20 05/13/18 09:00 BP 96/53 05/13/18 09:00 Pulse Ox 98 05/13/18 09:00 Intake & Output 05/12/18 05/13/18 05/13/18 18:59 06:59 18:59 Intake Total 2159.175 2416.409 1140.867 Output Total 449 528 210 Balance 3228.024 5675.409 930.867 Weight 68.2 kg Intake: IV 1316 1272 530 0.9% NS pressure bag 66 72 30 Dextrose 5% in Water 1, 900 600 000 ml @ 100 mls/hr IV . Q10H [facility] Rx#:[id number] Sodium Chloride 0.45% 1, 600 500 000 ml @ 100 mls/hr IV . Q10H [facility] Rx#:[id number] Sodium Chloride 0.9% 1, 225 000 ml @ 75 mls/hr IV . [id number] [facility] Rx#:[id number] Vancomycin 1,250 mg In 125 Sodium Chloride 0.9% 250 ml @ 125 mls/hr IVPB Q24H [facility] Rx#:[id number] Intake, IV Titration 543.175 414.409 380.867 Amount Cefepime 2 gm In Sodium 100 Chloride 0.9% 100 ml @ 200 mls/hr IVPB Q8HR [facility] Rx#:[id number] Heparin Sod,Pork in 0.45% 168.175 201.95 NaCl 25,000 unit In 0.45 % NaCl 1 250ml.bag @ 12 UNITS/KG/HR 8.16 mls/hr IV .Q24H [facility] Rx#: [id number] Insulin Regular 100 unit 26.016 14.000 In Sodium Chloride 0.9% 100 ml @ Per Protocol IV .Q0M [facility] Rx#:[id number] Levofloxacin 250Mg-D5w 100 Pmx 250 mg In Dextrose/ Water 1 50ml.bag @ 50 mls /hr IVPB Q24H [facility] Rx#: [id number] Piperacillin-Tazobactam 3 175 100 100 .375 gm In Sodium Chloride 0.9% 100 ml @ 25 mls/hr IVPB Q8HR [facility] Rx# :[id number] Propofol 1,000 mg In 288.393 64.917 Empty Bag 1 bag @ Titrate IV .Q0M [facility] Rx#: [id number] Tube Feeding 270 640 200 Other 30 90 30 Output: Urine 449 528 210 Other: Voiding Method Indwelling Catheter Indwelling Catheter Indwelling Catheter ABP, PAP, CO, CI - Last Documented Arterial Blood Pressure 137/54 - Exam Physical Exam: Revealed an 83-year-old white male on mechanical ventilation, remains on propofol sedated. Head: Atraumatic normocephalic. HEENT:[Neck is supple.] [No neck masses.] [No thyromegaly.] [No JVD.] PERRLA, EOMI, no icterus. Endotracheal tube and orogastric tube are noted to be intact Chest: [very minimal crackles at the bases, no rhonchi and no wheezes. Symmetrical chest expansion, no chest wall tenderness, right infraclavicular subclavian central line noted.unchanged..] Cardiac Exam: [Normal S1 and S2, no S3 gallop, 2/6 systolic murmur thought the precordium. Abdomen: [Soft, nontender, no megaly, no rebound, no guarding, normal bowel sounds.] Extremities: [No clubbing, no edema, no cyanosis.] Good pulses bilaterally in upper and lower extremities. Neurological Exan: patient is sedated,could not be assessed. Skin: No rashes. Psychiatric: Could not be assessed. Lymphatics: No lymphadenopathy. - Labs CBC & Chem 7: 05/13/18 04:50 05/13/18 04:50 Labs: Abnormal Lab Results - Last 24 Hours (Table) 05/11/18 05/12/18 05/12/18 Range/Units 04:50 16:59 20:55 RBC 2.92 L (4.30-5.90) m/uL Hgb 9.0 L (13.0-17.5) gm/dL Hct 28.8 L (39.0-53.0) % Lymphocytes # (1.0-4.8) k/uL APTT (22.0-30.0) sec ABG pCO2 (35-45) mmHg ABG pO2 (83-108) mmHg ABG HCO3 (21-25) mmol/L ABG O2 Saturation (94-97) % ABG Lactic Acid (0.5-1.6) mmol/L Potassium (3.5-5.1) mmol/L Chloride (98-107) mmol/L Carbon Dioxide (22-30) mmol/L BUN (9-20) mg/dL Creatinine (0.66-1.25) mg/dL Glucose (74-99) mg/dL POC Glucose (mg/dL) 230 H (75-99) mg/dL Calcium (8.4-10.2) mg/dL Magnesium (1.6-2.3) mg/dL Total Protein (6.3-8.2) g/dL Albumin (3.5-5.0) g/dL Urine Protein Trace H (Negative) 05/12/18 05/12/18 05/13/18 Range/Units 20:55 23:38 00:13 RBC (4.30-5.90) m/uL Hgb (13.0-17.5) gm/dL Hct (39.0-53.0) % Lymphocytes # (1.0-4.8) k/uL APTT (22.0-30.0) sec ABG pCO2 (35-45) mmHg ABG pO2 (83-108) mmHg ABG HCO3 (21-25) mmol/L ABG O2 Saturation (94-97) % ABG Lactic Acid (0.5-1.6) mmol/L Potassium 3.2 L (3.5-5.1) mmol/L Chloride 118 H (98-107) mmol/L Carbon Dioxide 17 L (22-30) mmol/L BUN 66 H (9-20) mg/dL Creatinine 1.36 H (0.66-1.25) mg/dL Glucose 238 H (74-99) mg/dL POC Glucose (mg/dL) 263 H 261 H (75-99) mg/dL Calcium 7.0 L (8.4-10.2) mg/dL Magnesium (1.6-2.3) mg/dL Total Protein 4.0 L (6.3-8.2) g/dL Albumin 2.0 L (3.5-5.0) g/dL Urine Protein (Negative) 05/13/18 05/13/18 05/13/18 Range/Units 00:47 01:15 02:01 RBC (4.30-5.90) m/uL Hgb (13.0-17.5) gm/dL Hct (39.0-53.0) % Lymphocytes # (1.0-4.8) k/uL APTT (22.0-30.0) sec ABG pCO2 (35-45) mmHg ABG pO2 (83-108) mmHg ABG HCO3 (21-25) mmol/L ABG O2 Saturation (94-97) % ABG Lactic Acid (0.5-1.6) mmol/L Potassium (3.5-5.1) mmol/L Chloride (98-107) mmol/L Carbon Dioxide (22-30) mmol/L BUN (9-20) mg/dL Creatinine (0.66-1.25) mg/dL Glucose (74-99) mg/dL POC Glucose (mg/dL) 238 H 236 H 178 H (75-99) mg/dL Calcium (8.4-10.2) mg/dL Magnesium (1.6-2.3) mg/dL Total Protein (6.3-8.2) g/dL Albumin (3.5-5.0) g/dL Urine Protein (Negative) 05/13/18 05/13/18 05/13/18 Range/Units 02:59 04:17 04:50 RBC 2.90 L (4.30-5.90) m/uL Hgb 9.0 L (13.0-17.5) gm/dL Hct 28.4 L (39.0-53.0) % Lymphocytes # 0.6 L (1.0-4.8) k/uL APTT (22.0-30.0) sec ABG pCO2 (35-45) mmHg ABG pO2 (83-108) mmHg ABG HCO3 (21-25) mmol/L ABG O2 Saturation (94-97) % ABG Lactic Acid (0.5-1.6) mmol/L Potassium (3.5-5.1) mmol/L Chloride (98-107) mmol/L Carbon Dioxide (22-30) mmol/L BUN (9-20) mg/dL Creatinine (0.66-1.25) mg/dL Glucose (74-99) mg/dL POC Glucose (mg/dL) 153 H 132 H (75-99) mg/dL Calcium (8.4-10.2) mg/dL Magnesium (1.6-2.3) mg/dL Total Protein (6.3-8.2) g/dL Albumin (3.5-5.0) g/dL Urine Protein (Negative) 05/13/18 05/13/18 05/13/18 Range/Units 04:50 04:50 04:50 RBC (4.30-5.90) m/uL Hgb (13.0-17.5) gm/dL Hct (39.0-53.0) % Lymphocytes # (1.0-4.8) k/uL APTT 47.2 H (22.0-30.0) sec ABG pCO2 (35-45) mmHg ABG pO2 (83-108) mmHg ABG HCO3 (21-25) mmol/L ABG O2 Saturation (94-97) % ABG Lactic Acid 1.7 H (0.5-1.6) mmol/L Potassium (3.5-5.1) mmol/L Chloride 119 H (98-107) mmol/L Carbon Dioxide 18 L (22-30) mmol/L BUN 68 H (9-20) mg/dL Creatinine 1.46 H (0.66-1.25) mg/dL Glucose 132 H (74-99) mg/dL POC Glucose (mg/dL) (75-99) mg/dL Calcium 7.5 L (8.4-10.2) mg/dL Magnesium 2.6 H (1.6-2.3) mg/dL Total Protein (6.3-8.2) g/dL Albumin (3.5-5.0) g/dL Urine Protein (Negative) 05/13/18 05/13/18 05/13/18 Range/Units 05:23 05:58 07:01 RBC (4.30-5.90) m/uL Hgb (13.0-17.5) gm/dL Hct (39.0-53.0) % Lymphocytes # (1.0-4.8) k/uL APTT (22.0-30.0) sec ABG pCO2 (35-45) mmHg ABG pO2 (83-108) mmHg ABG HCO3 (21-25) mmol/L ABG O2 Saturation (94-97) % ABG Lactic Acid (0.5-1.6) mmol/L Potassium (3.5-5.1) mmol/L Chloride (98-107) mmol/L Carbon Dioxide (22-30) mmol/L BUN (9-20) mg/dL Creatinine (0.66-1.25) mg/dL Glucose (74-99) mg/dL POC Glucose (mg/dL) 144 H 186 H 180 H (75-99) mg/dL Calcium (8.4-10.2) mg/dL Magnesium (1.6-2.3) mg/dL Total Protein (6.3-8.2) g/dL Albumin (3.5-5.0) g/dL Urine Protein (Negative) 05/13/18 05/13/18 05/13/18 Range/Units 08:20 08:20 09:24 RBC (4.30-5.90) m/uL Hgb (13.0-17.5) gm/dL Hct (39.0-53.0) % Lymphocytes # (1.0-4.8) k/uL APTT (22.0-30.0) sec ABG pCO2 31 L (35-45) mmHg ABG pO2 134 H (83-108) mmHg ABG HCO3 18 L (21-25) mmol/L ABG O2 Saturation 99.5 H (94-97) % ABG Lactic Acid (0.5-1.6) mmol/L Potassium (3.5-5.1) mmol/L Chloride (98-107) mmol/L Carbon Dioxide (22-30) mmol/L BUN (9-20) mg/dL Creatinine (0.66-1.25) mg/dL Glucose (74-99) mg/dL POC Glucose (mg/dL) 130 H 122 H (75-99) mg/dL Calcium (8.4-10.2) mg/dL Magnesium (1.6-2.3) mg/dL Total Protein (6.3-8.2) g/dL Albumin (3.5-5.0) g/dL Urine Protein (Negative) Microbiology - Last 24 Hours (Table) 05/12/18 20:55 Urine Culture - Preliminary Urine,Catheterized 05/11/18 16:37 Blood Culture - Preliminary Blood No Growth after 24 hours 05/11/18 16:37 Blood Culture - Preliminary Blood No Growth after 24 hours 05/11/18 19:57 Gram Stain - Preliminary Sputum Sputum Culture - Preliminary Assessment and Plan Assessment: Impression: 1 acute hypoxic respiratory failure secondary to pneumonia, aspiration in nature unless proven otherwise. 2 acute sepsis secondary to pneumonia, 3 suspect some component of congestive heart failure, Systolic in nature. 4 history of dementia 5 degenerative joint disease and previous knee replacement./Left knee 6 chronic kidney disease stage III 7 acute non-ST elevation myocardial infarction is strongly suspected based on the fact the patient had elevated troponin 8 history of hypothyroidism 9 history of deep vein thrombosis 10 history of mild asthma recommendation: Continue ventilatory support, nutritional support via enteral feeding, continue GI and DVT prophylaxis, continue antibiotics, Hypernatremia has been corrected sodium today is 144. Continue to monitor renal profile on a daily basis. considering the creatinine is up a bit today, and the patient is likely known to have history of stage III renal failure, I will recommend nephrology evaluation. Continue Hemodynamic support if necessary with pressors , presently off pressors.will interrupt sedation today and give the patient possibly a weaning trial with a pressure support and CPAP, I doubt if the patient will tolerate weaning but it should be tried anyway. Family was updated on his condition yesterday, and we have discussed CODE STATUS with the , at this point the patient remains full code. We'll continue to follow. Critical care time is 35 minutes Time with Patient: Greater than 30
[2018-05-13 12:18] LABS: Glucose,Whole Blood 203 mg/dL (75-99)
--- NOTE | 2018-05-13 14:25 | P.PN ---
Subjective Progress Note Date: 05/13/18 his patient's medical records reviewed laboratory tests and vital signs and the medications also reviewed. Patient is being treated for pneumonia and heart failure. Patient is clinically improved improving is still currently is on a ventilatorbut he may be weaned off today. States is reviewed which shows improvement no significant venous congestion is noted liver patient is in a positive fluid balance for last several dayshis urine output remains borderline V/Q him 1 dose of Lasix 20 mg dailyhe also discontinue the IV heparin start the patient on Eliquis 5 mg twice a day because of the atrial fibrillation Objective - Vital Signs Vital signs: Vital Signs Temp 97.3 F L 05/13/18 12:00 Pulse 80 05/13/18 14:00 Resp 18 05/13/18 14:00 BP 96/53 05/13/18 09:00 Pulse Ox 97 05/13/18 14:00 Intake & Output 05/12/18 05/13/18 05/13/18 18:59 06:59 18:59 Intake Total 2159.175 2416.409 1458.867 Output Total 433 858 8954 Balance 3200.045 5905.409 423.867 Weight 68.2 kg Intake: IV 1316 1272 848 0.9% NS pressure bag 66 72 48 Dextrose 5% in Water 1, 900 600 000 ml @ 100 mls/hr IV . Q10H [facility] Rx#:[id number] Sodium Chloride 0.45% 1, 600 800 000 ml @ 100 mls/hr IV . Q10H [facility] Rx#:[id number] Sodium Chloride 0.9% 1, 225 000 ml @ 75 mls/hr IV . [id number] [facility] Rx#:[id number] Vancomycin 1,250 mg In 125 Sodium Chloride 0.9% 250 ml @ 125 mls/hr IVPB Q24H [facility] Rx#:[id number] Intake, IV Titration 543.175 414.409 380.867 Amount Cefepime 2 gm In Sodium 100 Chloride 0.9% 100 ml @ 200 mls/hr IVPB Q8HR [facility] Rx#:[id number] Heparin Sod,Pork in 0.45% 168.175 201.95 NaCl 25,000 unit In 0.45 % NaCl 1 250ml.bag @ 12 UNITS/KG/HR 8.16 mls/hr IV .Q24H [facility] Rx#: [id number] Insulin Regular 100 unit 26.016 14.000 In Sodium Chloride 0.9% 100 ml @ Per Protocol IV .Q0M [facility] Rx#:[id number] Levofloxacin 250Mg-D5w 100 Pmx 250 mg In Dextrose/ Water 1 50ml.bag @ 50 mls /hr IVPB Q24H [facility] Rx#: [id number] Piperacillin-Tazobactam 3 175 100 100 .375 gm In Sodium Chloride 0.9% 100 ml @ 25 mls/hr IVPB Q8HR [facility] Rx# :[id number] Propofol 1,000 mg In 288.393 64.917 Empty Bag 1 bag @ Titrate IV .Q0M [facility] Rx#: [id number] Tube Feeding 270 640 200 Other 30 90 30 Output: Urine 603 663 9824 Other: Voiding Method Indwelling Catheter Indwelling Catheter Indwelling Catheter ABP, PAP, CO, CI - Last Documented Arterial Blood Pressure 120/40 - Exam Patient's vital signs are reviewed. patient is currently intubated HEENT negative. Neck-supple no increase in JVP noted no carotid bruits noted. Chest-symmetrical. Heart-first and second heart sounds are normal. No S3 or S4 is noted. No significant murmurs are noted.patient is in atrial fibrillation with a controlled rate Lungs bilateral good at entry is noted. No rales or rhonchi are noted Abdomen-soft. Liver and spleen are not enlarged. The bowel sounds are normal. No tenderness noted Extremities-peripheral pulses since are 2+. No significant leg edema noted. Neuro-no significant gross abnormality noted. - Labs CBC & Chem 7: 05/13/18 04:50 05/13/18 04:50 Labs: Abnormal Lab Results - Last 24 Hours (Table) 05/11/18 05/12/18 05/12/18 Range/Units 04:50 16:59 20:55 RBC 2.92 L (4.30-5.90) m/uL Hgb 9.0 L (13.0-17.5) gm/dL Hct 28.8 L (39.0-53.0) % Lymphocytes # (1.0-4.8) k/uL APTT (22.0-30.0) sec ABG pCO2 (35-45) mmHg ABG pO2 (83-108) mmHg ABG HCO3 (21-25) mmol/L ABG O2 Saturation (94-97) % ABG Lactic Acid (0.5-1.6) mmol/L Potassium (3.5-5.1) mmol/L Chloride (98-107) mmol/L Carbon Dioxide (22-30) mmol/L BUN (9-20) mg/dL Creatinine (0.66-1.25) mg/dL Glucose (74-99) mg/dL POC Glucose (mg/dL) 230 H (75-99) mg/dL Calcium (8.4-10.2) mg/dL Magnesium (1.6-2.3) mg/dL Troponin I (0.000-0.034) ng/mL Total Protein (6.3-8.2) g/dL Albumin (3.5-5.0) g/dL Urine Protein Trace H (Negative) 05/12/18 05/12/18 05/13/18 Range/Units 20:55 23:38 00:13 RBC (4.30-5.90) m/uL Hgb (13.0-17.5) gm/dL Hct (39.0-53.0) % Lymphocytes # (1.0-4.8) k/uL APTT (22.0-30.0) sec ABG pCO2 (35-45) mmHg ABG pO2 (83-108) mmHg ABG HCO3 (21-25) mmol/L ABG O2 Saturation (94-97) % ABG Lactic Acid (0.5-1.6) mmol/L Potassium 3.2 L (3.5-5.1) mmol/L Chloride 118 H (98-107) mmol/L Carbon Dioxide 17 L (22-30) mmol/L BUN 66 H (9-20) mg/dL Creatinine 1.36 H (0.66-1.25) mg/dL Glucose 238 H (74-99) mg/dL POC Glucose (mg/dL) 263 H 261 H (75-99) mg/dL Calcium 7.0 L (8.4-10.2) mg/dL Magnesium (1.6-2.3) mg/dL Troponin I (0.000-0.034) ng/mL Total Protein 4.0 L (6.3-8.2) g/dL Albumin 2.0 L (3.5-5.0) g/dL Urine Protein (Negative) 05/13/18 05/13/18 05/13/18 Range/Units 00:47 01:15 02:01 RBC (4.30-5.90) m/uL Hgb (13.0-17.5) gm/dL Hct (39.0-53.0) % Lymphocytes # (1.0-4.8) k/uL APTT (22.0-30.0) sec ABG pCO2 (35-45) mmHg ABG pO2 (83-108) mmHg ABG HCO3 (21-25) mmol/L ABG O2 Saturation (94-97) % ABG Lactic Acid (0.5-1.6) mmol/L Potassium (3.5-5.1) mmol/L Chloride (98-107) mmol/L Carbon Dioxide (22-30) mmol/L BUN (9-20) mg/dL Creatinine (0.66-1.25) mg/dL Glucose (74-99) mg/dL POC Glucose (mg/dL) 238 H 236 H 178 H (75-99) mg/dL Calcium (8.4-10.2) mg/dL Magnesium (1.6-2.3) mg/dL Troponin I (0.000-0.034) ng/mL Total Protein (6.3-8.2) g/dL Albumin (3.5-5.0) g/dL Urine Protein (Negative) 05/13/18 05/13/18 05/13/18 Range/Units 02:59 04:17 04:50 RBC 2.90 L (4.30-5.90) m/uL Hgb 9.0 L (13.0-17.5) gm/dL Hct 28.4 L (39.0-53.0) % Lymphocytes # 0.6 L (1.0-4.8) k/uL APTT (22.0-30.0) sec ABG pCO2 (35-45) mmHg ABG pO2 (83-108) mmHg ABG HCO3 (21-25) mmol/L ABG O2 Saturation (94-97) % ABG Lactic Acid (0.5-1.6) mmol/L Potassium (3.5-5.1) mmol/L Chloride (98-107) mmol/L Carbon Dioxide (22-30) mmol/L BUN (9-20) mg/dL Creatinine (0.66-1.25) mg/dL Glucose (74-99) mg/dL POC Glucose (mg/dL) 153 H 132 H (75-99) mg/dL Calcium (8.4-10.2) mg/dL Magnesium (1.6-2.3) mg/dL Troponin I (0.000-0.034) ng/mL Total Protein (6.3-8.2) g/dL Albumin (3.5-5.0) g/dL Urine Protein (Negative) 05/13/18 05/13/18 05/13/18 Range/Units 04:50 04:50 04:50 RBC (4.30-5.90) m/uL Hgb (13.0-17.5) gm/dL Hct (39.0-53.0) % Lymphocytes # (1.0-4.8) k/uL APTT 47.2 H (22.0-30.0) sec ABG pCO2 (35-45) mmHg ABG pO2 (83-108) mmHg ABG HCO3 (21-25) mmol/L ABG O2 Saturation (94-97) % ABG Lactic Acid 1.7 H (0.5-1.6) mmol/L Potassium (3.5-5.1) mmol/L Chloride 119 H (98-107) mmol/L Carbon Dioxide 18 L (22-30) mmol/L BUN 68 H (9-20) mg/dL Creatinine 1.46 H (0.66-1.25) mg/dL Glucose 132 H (74-99) mg/dL POC Glucose (mg/dL) (75-99) mg/dL Calcium 7.5 L (8.4-10.2) mg/dL Magnesium 2.6 H (1.6-2.3) mg/dL Troponin I (0.000-0.034) ng/mL Total Protein (6.3-8.2) g/dL Albumin (3.5-5.0) g/dL Urine Protein (Negative) 05/13/18 05/13/18 05/13/18 Range/Units 05:23 05:58 07:01 RBC (4.30-5.90) m/uL Hgb (13.0-17.5) gm/dL Hct (39.0-53.0) % Lymphocytes # (1.0-4.8) k/uL APTT (22.0-30.0) sec ABG pCO2 (35-45) mmHg ABG pO2 (83-108) mmHg ABG HCO3 (21-25) mmol/L ABG O2 Saturation (94-97) % ABG Lactic Acid (0.5-1.6) mmol/L Potassium (3.5-5.1) mmol/L Chloride (98-107) mmol/L Carbon Dioxide (22-30) mmol/L BUN (9-20) mg/dL Creatinine (0.66-1.25) mg/dL Glucose (74-99) mg/dL POC Glucose (mg/dL) 144 H 186 H 180 H (75-99) mg/dL Calcium (8.4-10.2) mg/dL Magnesium (1.6-2.3) mg/dL Troponin I (0.000-0.034) ng/mL Total Protein (6.3-8.2) g/dL Albumin (3.5-5.0) g/dL Urine Protein (Negative) 05/13/18 05/13/18 05/13/18 Range/Units 08:20 08:20 09:24 RBC (4.30-5.90) m/uL Hgb (13.0-17.5) gm/dL Hct (39.0-53.0) % Lymphocytes # (1.0-4.8) k/uL APTT (22.0-30.0) sec ABG pCO2 31 L (35-45) mmHg ABG pO2 134 H (83-108) mmHg ABG HCO3 18 L (21-25) mmol/L ABG O2 Saturation 99.5 H (94-97) % ABG Lactic Acid (0.5-1.6) mmol/L Potassium (3.5-5.1) mmol/L Chloride (98-107) mmol/L Carbon Dioxide (22-30) mmol/L BUN (9-20) mg/dL Creatinine (0.66-1.25) mg/dL Glucose (74-99) mg/dL POC Glucose (mg/dL) 130 H 122 H (75-99) mg/dL Calcium (8.4-10.2) mg/dL Magnesium (1.6-2.3) mg/dL Troponin I (0.000-0.034) ng/mL Total Protein (6.3-8.2) g/dL Albumin (3.5-5.0) g/dL Urine Protein (Negative) 05/13/18 05/13/18 Range/Units 12:03 12:06 RBC (4.30-5.90) m/uL Hgb (13.0-17.5) gm/dL Hct (39.0-53.0) % Lymphocytes # (1.0-4.8) k/uL APTT (22.0-30.0) sec ABG pCO2 (35-45) mmHg ABG pO2 (83-108) mmHg ABG HCO3 (21-25) mmol/L ABG O2 Saturation (94-97) % ABG Lactic Acid (0.5-1.6) mmol/L Potassium (3.5-5.1) mmol/L Chloride (98-107) mmol/L Carbon Dioxide (22-30) mmol/L BUN (9-20) mg/dL Creatinine (0.66-1.25) mg/dL Glucose (74-99) mg/dL POC Glucose (mg/dL) 203 H (75-99) mg/dL Calcium (8.4-10.2) mg/dL Magnesium (1.6-2.3) mg/dL Troponin I 3.770 H* (0.000-0.034) ng/mL Total Protein (6.3-8.2) g/dL Albumin (3.5-5.0) g/dL Urine Protein (Negative) Microbiology - Last 24 Hours (Table) 05/12/18 20:55 Urine Culture - Preliminary Urine,Catheterized 05/11/18 16:37 Blood Culture - Preliminary Blood No Growth after 24 hours 05/11/18 16:37 Blood Culture - Preliminary Blood No Growth after 24 hours Assessment and Plan Assessment: patient's overall condition is improving. Review give patient one dose of IV Lasix 20 mg DC IV heparin Start Eliquis 5 mg twice a day
[2018-05-13 14:34] LABS: Glucose,Whole Blood 163 mg/dL (75-99)
[2018-05-13] MEDS: APIXABAN 5 MG TAB PO SCH ×2 (15:00→20:00)
[2018-05-13] MEDS: LEVOFLOXACIN 250MG-D5W PMX 250 MG in DEXTROSE/WATER 1 50ML.BAG IVPB SCH (15:02)
--- NOTE | 2018-05-13 15:13 | CONS ---
CONSULTATION REASON FOR CONSULT: Renal failure. HISTORY OF PRESENT ILLNESS: The patient is an 83-year-old male who was admitted to the hospital on on 05/11/2018 with altered mentation. He was found to have pneumonia and was intubated. Sputum culture is growing gram-positive cocci. The patient is currently on the vent. He is awake. His sedation is held. Serum creatinine is at 1.46. On admission, it was 1.26 mg/dL. Urine output is staying at about 50-35 mL/hour. The patient is maintained on IV fluids. He did get 1 dose of Lasix earlier. PAST MEDICAL HISTORY: Significant for hypertension, history of DVT, hyperlipidemia, osteoarthritis, previous history of pneumonia, asthma, hypothyroidism, diverticulitis, dementia. PAST SURGICAL HISTORY: Appendectomy, cholecystectomy, hernia repair, left total knee arthroplasty, vasectomy, colonoscopy, cataract surgery. SOCIAL HISTORY: Patient is a former smoker. No history of drug abuse or alcohol abuse. MEDICATIONS: Medications at home prior to admission, Zyloprim, vitamin D3, Cymbalta, Flomax, potassium, Zyrtec, iron, Ativan, Senna, Namenda, VESIcare. ALLERGIES: INCLUDE CHLORAPREP WHICH CAUSES RASH AND HIVES. PHYSICAL EXAMINATION: Currently patient is on the vent. He is awake. He is not in any acute distress. Blood pressure is 137/54, heart rate 84 per minute. Patient is afebrile. Examination of the heart S1, S2. Examination of the lungs bilateral breath sounds are heard. Abdomen is soft, nontender. Examination lower extremities shows no significant edema. DATA SECURITY COORDINATOR exam is grossly intact. Patient moving all 4 extremities. LAB: Show hemoglobin 9.0, sodium 144, potassium 4.1, BUN 68, serum creatinine 1.46, calcium 7.5, phosphorus 3.5, magnesium 2.6. ASSESSMENT: 1. Acute kidney injury, acute tubular necrosis, currently nonoliguric. Urine output is at borderline. The patient is maintained on IV fluids which I will continue for now. 2. Vent dependent respiratory failure secondary to pneumonia with an element of aspiration pneumonia maintained on antibiotics. 3. Sepsis secondary to pneumonia, currently improving. 4. Acute non ST elevation myocardial infarction. 5. History of deep vein thrombosis, maintained on anticoagulation. 6. Chronic kidney disease. Serum creatinine on admission was 1.26. We do not have any prior labs available for comparison. Etiology is nephrosclerosis and NKF stage III. UA shows trace protein. 7. Non-gap metabolic acidosis secondary to renal failure, started on oral sodium bicarb. PLAN: Continue with oral sodium bicarb. Continue half-normal saline. Continue to avoid nephrotoxic agents and repeat labs in a.m. Thank you for this consultation. We will continue to follow the patient with you during his hospitalization. MMODL / IJN: [id number] /
[2018-05-13 15:43] LABS: Glucose,Whole Blood 132 mg/dL (75-99)
[2018-05-13 16:14] LABS: Glucose,Whole Blood 126 mg/dL (75-99)
--- NOTE | 2018-05-13 16:55 | P.PN ---
Subjective 83-year-old gentleman admitted for pneumonia and heart failure. Patient is intubated and sedated. Objective - Vital Signs Vital signs: Vital Signs Temp 97.3 F L 05/13/18 12:00 Pulse 77 05/13/18 15:30 Resp 18 05/13/18 14:00 BP 96/53 05/13/18 09:00 Pulse Ox 97 05/13/18 14:00 Intake & Output 05/12/18 05/13/18 05/13/18 18:59 06:59 18:59 Intake Total 2159.175 2416.409 1490.232 Output Total 114 409 2809 Balance 1033.874 4988.409 455.232 Weight 68.2 kg Intake: IV 1316 1272 848 0.9% NS pressure bag 66 72 48 Dextrose 5% in Water 1, 900 600 000 ml @ 100 mls/hr IV . Q10H [facility] Rx#:[id number] Sodium Chloride 0.45% 1, 600 800 000 ml @ 100 mls/hr IV . Q10H [facility] Rx#:[id number] Sodium Chloride 0.9% 1, 225 000 ml @ 75 mls/hr IV . [id number] [facility] Rx#:[id number] Vancomycin 1,250 mg In 125 Sodium Chloride 0.9% 250 ml @ 125 mls/hr IVPB Q24H [facility] Rx#:[id number] Intake, IV Titration 543.175 414.409 412.232 Amount Cefepime 2 gm In Sodium 100 Chloride 0.9% 100 ml @ 200 mls/hr IVPB Q8HR [facility] Rx#:[id number] Heparin Sod,Pork in 0.45% 168.175 201.95 NaCl 25,000 unit In 0.45 % NaCl 1 250ml.bag @ 12 UNITS/KG/HR 8.16 mls/hr IV .Q24H [facility] Rx#: [id number] Insulin Regular 100 unit 26.016 27.600 In Sodium Chloride 0.9% 100 ml @ Per Protocol IV .Q0M [facility] Rx#:[id number] Levofloxacin 250Mg-D5w 100 Pmx 250 mg In Dextrose/ Water 1 50ml.bag @ 50 mls /hr IVPB Q24H [facility] Rx#: [id number] Piperacillin-Tazobactam 3 175 100 100 .375 gm In Sodium Chloride 0.9% 100 ml @ 25 mls/hr IVPB Q8HR [facility] Rx# :[id number] Propofol 1,000 mg In 288.393 82.682 Empty Bag 1 bag @ Titrate IV .Q0M [facility] Rx#: [id number] Tube Feeding 270 640 200 Other 30 90 30 Output: Urine 565 313 0338 Other: Voiding Method Indwelling Catheter Indwelling Catheter Indwelling Catheter ABP, PAP, CO, CI - Last Documented Arterial Blood Pressure 120/40 - Exam On exam, intubated and sedated HEENT: Conjunctivae normal. eyes normal. NECK: No JVD. No thyroid enlargement. No LNs CARDIOVASCULAR: S1-S2 positive RESPIRATION: Patient is having crackles at the bases ABDOMEN: Soft, nontender . No guarding. no masses palpable. No ascites, No hepatosplenomegaly.Bowel sounds heard. LEGS: No edema. no swelling NERVOUS SYSTEM: Not able to examine her neurological status as the patient is intubated and sedated Skin: no ulcer no rash - Labs CBC & Chem 7: 05/13/18 04:50 05/13/18 04:50 Labs: Abnormal Lab Results - Last 24 Hours (Table) 05/11/18 05/12/18 05/12/18 Range/Units 04:50 16:59 20:55 RBC 2.92 L (4.30-5.90) m/uL Hgb 9.0 L (13.0-17.5) gm/dL Hct 28.8 L (39.0-53.0) % Lymphocytes # (1.0-4.8) k/uL APTT (22.0-30.0) sec ABG pCO2 (35-45) mmHg ABG pO2 (83-108) mmHg ABG HCO3 (21-25) mmol/L ABG O2 Saturation (94-97) % ABG Lactic Acid (0.5-1.6) mmol/L Potassium (3.5-5.1) mmol/L Chloride (98-107) mmol/L Carbon Dioxide (22-30) mmol/L BUN (9-20) mg/dL Creatinine (0.66-1.25) mg/dL Glucose (74-99) mg/dL POC Glucose (mg/dL) 230 H (75-99) mg/dL Calcium (8.4-10.2) mg/dL Magnesium (1.6-2.3) mg/dL Troponin I (0.000-0.034) ng/mL Total Protein (6.3-8.2) g/dL Albumin (3.5-5.0) g/dL Urine Protein Trace H (Negative) 05/12/18 05/12/18 05/13/18 Range/Units 20:55 23:38 00:13 RBC (4.30-5.90) m/uL Hgb (13.0-17.5) gm/dL Hct (39.0-53.0) % Lymphocytes # (1.0-4.8) k/uL APTT (22.0-30.0) sec ABG pCO2 (35-45) mmHg ABG pO2 (83-108) mmHg ABG HCO3 (21-25) mmol/L ABG O2 Saturation (94-97) % ABG Lactic Acid (0.5-1.6) mmol/L Potassium 3.2 L (3.5-5.1) mmol/L Chloride 118 H (98-107) mmol/L Carbon Dioxide 17 L (22-30) mmol/L BUN 66 H (9-20) mg/dL Creatinine 1.36 H (0.66-1.25) mg/dL Glucose 238 H (74-99) mg/dL POC Glucose (mg/dL) 263 H 261 H (75-99) mg/dL Calcium 7.0 L (8.4-10.2) mg/dL Magnesium (1.6-2.3) mg/dL Troponin I (0.000-0.034) ng/mL Total Protein 4.0 L (6.3-8.2) g/dL Albumin 2.0 L (3.5-5.0) g/dL Urine Protein (Negative) 05/13/18 05/13/18 05/13/18 Range/Units 00:47 01:15 02:01 RBC (4.30-5.90) m/uL Hgb (13.0-17.5) gm/dL Hct (39.0-53.0) % Lymphocytes # (1.0-4.8) k/uL APTT (22.0-30.0) sec ABG pCO2 (35-45) mmHg ABG pO2 (83-108) mmHg ABG HCO3 (21-25) mmol/L ABG O2 Saturation (94-97) % ABG Lactic Acid (0.5-1.6) mmol/L Potassium (3.5-5.1) mmol/L Chloride (98-107) mmol/L Carbon Dioxide (22-30) mmol/L BUN (9-20) mg/dL Creatinine (0.66-1.25) mg/dL Glucose (74-99) mg/dL POC Glucose (mg/dL) 238 H 236 H 178 H (75-99) mg/dL Calcium (8.4-10.2) mg/dL Magnesium (1.6-2.3) mg/dL Troponin I (0.000-0.034) ng/mL Total Protein (6.3-8.2) g/dL Albumin (3.5-5.0) g/dL Urine Protein (Negative) 05/13/18 05/13/18 05/13/18 Range/Units 02:59 04:17 04:50 RBC 2.90 L (4.30-5.90) m/uL Hgb 9.0 L (13.0-17.5) gm/dL Hct 28.4 L (39.0-53.0) % Lymphocytes # 0.6 L (1.0-4.8) k/uL APTT (22.0-30.0) sec ABG pCO2 (35-45) mmHg ABG pO2 (83-108) mmHg ABG HCO3 (21-25) mmol/L ABG O2 Saturation (94-97) % ABG Lactic Acid (0.5-1.6) mmol/L Potassium (3.5-5.1) mmol/L Chloride (98-107) mmol/L Carbon Dioxide (22-30) mmol/L BUN (9-20) mg/dL Creatinine (0.66-1.25) mg/dL Glucose (74-99) mg/dL POC Glucose (mg/dL) 153 H 132 H (75-99) mg/dL Calcium (8.4-10.2) mg/dL Magnesium (1.6-2.3) mg/dL Troponin I (0.000-0.034) ng/mL Total Protein (6.3-8.2) g/dL Albumin (3.5-5.0) g/dL Urine Protein (Negative) 05/13/18 05/13/18 05/13/18 Range/Units 04:50 04:50 04:50 RBC (4.30-5.90) m/uL Hgb (13.0-17.5) gm/dL Hct (39.0-53.0) % Lymphocytes # (1.0-4.8) k/uL APTT 47.2 H (22.0-30.0) sec ABG pCO2 (35-45) mmHg ABG pO2 (83-108) mmHg ABG HCO3 (21-25) mmol/L ABG O2 Saturation (94-97) % ABG Lactic Acid 1.7 H (0.5-1.6) mmol/L Potassium (3.5-5.1) mmol/L Chloride 119 H (98-107) mmol/L Carbon Dioxide 18 L (22-30) mmol/L BUN 68 H (9-20) mg/dL Creatinine 1.46 H (0.66-1.25) mg/dL Glucose 132 H (74-99) mg/dL POC Glucose (mg/dL) (75-99) mg/dL Calcium 7.5 L (8.4-10.2) mg/dL Magnesium 2.6 H (1.6-2.3) mg/dL Troponin I (0.000-0.034) ng/mL Total Protein (6.3-8.2) g/dL Albumin (3.5-5.0) g/dL Urine Protein (Negative) 05/13/18 05/13/18 05/13/18 Range/Units 05:23 05:58 07:01 RBC (4.30-5.90) m/uL Hgb (13.0-17.5) gm/dL Hct (39.0-53.0) % Lymphocytes # (1.0-4.8) k/uL APTT (22.0-30.0) sec ABG pCO2 (35-45) mmHg ABG pO2 (83-108) mmHg ABG HCO3 (21-25) mmol/L ABG O2 Saturation (94-97) % ABG Lactic Acid (0.5-1.6) mmol/L Potassium (3.5-5.1) mmol/L Chloride (98-107) mmol/L Carbon Dioxide (22-30) mmol/L BUN (9-20) mg/dL Creatinine (0.66-1.25) mg/dL Glucose (74-99) mg/dL POC Glucose (mg/dL) 144 H 186 H 180 H (75-99) mg/dL Calcium (8.4-10.2) mg/dL Magnesium (1.6-2.3) mg/dL Troponin I (0.000-0.034) ng/mL Total Protein (6.3-8.2) g/dL Albumin (3.5-5.0) g/dL Urine Protein (Negative) 05/13/18 05/13/18 05/13/18 Range/Units 08:20 08:20 09:24 RBC (4.30-5.90) m/uL Hgb (13.0-17.5) gm/dL Hct (39.0-53.0) % Lymphocytes # (1.0-4.8) k/uL APTT (22.0-30.0) sec ABG pCO2 31 L (35-45) mmHg ABG pO2 134 H (83-108) mmHg ABG HCO3 18 L (21-25) mmol/L ABG O2 Saturation 99.5 H (94-97) % ABG Lactic Acid (0.5-1.6) mmol/L Potassium (3.5-5.1) mmol/L Chloride (98-107) mmol/L Carbon Dioxide (22-30) mmol/L BUN (9-20) mg/dL Creatinine (0.66-1.25) mg/dL Glucose (74-99) mg/dL POC Glucose (mg/dL) 130 H 122 H (75-99) mg/dL Calcium (8.4-10.2) mg/dL Magnesium (1.6-2.3) mg/dL Troponin I (0.000-0.034) ng/mL Total Protein (6.3-8.2) g/dL Albumin (3.5-5.0) g/dL Urine Protein (Negative) 05/13/18 05/13/18 05/13/18 Range/Units 12:03 12:06 14:22 RBC (4.30-5.90) m/uL Hgb (13.0-17.5) gm/dL Hct (39.0-53.0) % Lymphocytes # (1.0-4.8) k/uL APTT (22.0-30.0) sec ABG pCO2 (35-45) mmHg ABG pO2 (83-108) mmHg ABG HCO3 (21-25) mmol/L ABG O2 Saturation (94-97) % ABG Lactic Acid (0.5-1.6) mmol/L Potassium (3.5-5.1) mmol/L Chloride (98-107) mmol/L Carbon Dioxide (22-30) mmol/L BUN (9-20) mg/dL Creatinine (0.66-1.25) mg/dL Glucose (74-99) mg/dL POC Glucose (mg/dL) 203 H 163 H (75-99) mg/dL Calcium (8.4-10.2) mg/dL Magnesium (1.6-2.3) mg/dL Troponin I 3.770 H* (0.000-0.034) ng/mL Total Protein (6.3-8.2) g/dL Albumin (3.5-5.0) g/dL Urine Protein (Negative) 05/13/18 05/13/18 Range/Units 15:30 16:02 RBC (4.30-5.90) m/uL Hgb (13.0-17.5) gm/dL Hct (39.0-53.0) % Lymphocytes # (1.0-4.8) k/uL APTT (22.0-30.0) sec ABG pCO2 (35-45) mmHg ABG pO2 (83-108) mmHg ABG HCO3 (21-25) mmol/L ABG O2 Saturation (94-97) % ABG Lactic Acid (0.5-1.6) mmol/L Potassium (3.5-5.1) mmol/L Chloride (98-107) mmol/L Carbon Dioxide (22-30) mmol/L BUN (9-20) mg/dL Creatinine (0.66-1.25) mg/dL Glucose (74-99) mg/dL POC Glucose (mg/dL) 132 H 126 H (75-99) mg/dL Calcium (8.4-10.2) mg/dL Magnesium (1.6-2.3) mg/dL Troponin I (0.000-0.034) ng/mL Total Protein (6.3-8.2) g/dL Albumin (3.5-5.0) g/dL Urine Protein (Negative) Microbiology - Last 24 Hours (Table) 05/12/18 20:55 Urine Culture - Preliminary Urine,Catheterized 05/11/18 16:37 Blood Culture - Preliminary Blood No Growth after 24 hours 05/11/18 16:37 Blood Culture - Preliminary Blood No Growth after 24 hours Assessment and Plan Assessment: - Acute respiratory failure secondary - Pneumonia need to rule out aspiration pneumonia - Sepsis - Non-STEMI - Acute CHF exacerbation due to systolic dysfunction contributing to respiratory failure - Chronic kidney disease stage III - History of DVT Plan - Patient is on ventilator management the ICU. Appreciated the recommendations. Continue antibiotics as per I's recommendations - Nephrology on board on gentle hydration - Patient is followed by cardiology. Medical management for now - Continue current management - We'll continue to follow the patient Time with Patient: Greater than 30
[2018-05-13 18:21] LABS: Glucose,Whole Blood 171 mg/dL (75-99)
[2018-05-13 20:25] LABS: Glucose,Whole Blood 192 mg/dL (75-99)
[2018-05-14 00:29] LABS: Glucose,Whole Blood 176 mg/dL (75-99)
[2018-05-14] MEDS: methylPREDNISolone SOD SUCCI 40 MG/ML 1 ML VIAL IV SCH ×3 (00:32→21:54)
[2018-05-14] MEDS: NOREPINEPHRINE 4 MG in SODIUM CHLORIDE 0.9% 250 ML IV SCH (00:32)
[2018-05-14] MEDS: INSULIN ASPART (NovoLOG) 100 UNIT/ML VIAL SQ SCH ×6 (00:32→20:20)
[2018-05-14] MEDS: PIPERACILLIN-TAZOBACTAM 3.375 GM in SODIUM CHLORIDE 0.9% 100 ML IVPB SCH ×3 (00:32→18:14)
[2018-05-14] MEDS: SODIUM CHLORIDE 0.45% 1,000 ML IV SCH ×2 (04:46→17:12)
[2018-05-14 04:50] LABS: Basophils % (A) 0 %; Eosinophils % (A) 0 %; HCT 27.8 % (39.0-53.0); HGB 9.2 gm/dL (13.0-17.5); Hypochromasia Slight; Lymphocytes # (A) 0.6 k/uL (1.0-4.8); Lymphocytes % (A) 7 %; MCH 32.4 pg (25.0-35.0); MCHC 33.3 g/dL (31.0-37.0); MCV 97.6 fL (80.0-100.0); Mean Platelet Volume 8.3; Monocytes # (A) 0.3 k/uL (0-1.0); Monocytes % (A) 3 %; Neutrophils # (A) 6.8 k/uL (1.3-7.7); Neutrophils % (A) 87 %; Platelet Count 243 k/uL (150-450); RBC 2.85 m/uL (4.30-5.90); RDW 13.9 % (11.5-15.5); WBC 7.7 k/uL (3.8-10.6)
[2018-05-14 04:58] LABS: Glucose,Whole Blood 222 mg/dL (75-99)
[2018-05-14 05:03] LABS: Calcium 7.4 mg/dL (8.4-10.2); Magnesium 2.6 mg/dL (1.6-2.3); Phosphorus 4.1 mg/dL (2.5-4.5); Potassium 3.8 mmol/L (3.5-5.1)
[2018-05-14 05:26] LABS: ABG Base Excess -7.8 mmol/L; ABG HCO3 18 mmol/L (21-25); ABG Oxygen Saturation 99.1 % (94-97); ABG PCO2 32 mmHg (35-45); ABG PH 7.35 (7.35-7.45); ABG PO2 129 mmHg (83-108); ABG TCO2 19 mmol/L (19-24)
[2018-05-14] MEDS: IPRATROPIUM-ALBUTEROL 3 ML NEB INHALATION PRN ×3 (06:00→19:00)
[2018-05-14] MEDS ORDERED: POTASSIUM BICARBONATE/CIT AC 20 MEQ TABLET.EFF NG-TUBE SCH (06:00)
[2018-05-14] MEDS: BUDESONIDE 0.5 MG/2 ML NEBU INHALATION SCH ×2 (06:00→19:00)
--- NOTE | 2018-05-14 06:47 | XR ---
EXAM: XR Chest, 1 View CLINICAL HISTORY: Tube placement TECHNIQUE: Frontal view of the chest. COMPARISON: May 13, 2018. FINDINGS: The distal tip of the enteric tube is approximately 1.6 cm above the fuentes. Enteric tube tip is within the stomach. Table right-sided central venous catheter with distal tip projected over the cavoatrial junction. Cardiac silhouette is within normal limits. Central vascular congestion. Bilateral lower lobe infiltrates and small pleural effusions, stable. Senescent changes. IMPRESSION: Recommend retraction of ET tube by approximately 1 cm. Remainder little changed. Critical Value Communications 05/14/18 07:00 Verify Receipt with Nurse Verified receipt with RN Max (Verbal) in ICU on 05/14 06:59 (-05:00)
[2018-05-14] MEDS: PROPOFOL 1,000 MG in EMPTY BAG 1 BAG IV SCH ×3 (07:40→19:00)
[2018-05-14 08:29] LABS: Glucose,Whole Blood 232 mg/dL (75-99)
[2018-05-14] MEDS: ASPIRIN 81 MG PO SCH (08:40)
[2018-05-14] MEDS: PANTOPRAZOLE 40 MG/10 ML VIAL IV SCH (08:40)
[2018-05-14] MEDS: APIXABAN 5 MG TAB PO SCH ×2 (08:40→21:54)
[2018-05-14] MEDS: CHLORHEXIDINE GLUCONATE 15 ML CUP MUCOUS MEM SCH ×2 (08:40→21:54)
[2018-05-14] MEDS: SODIUM BICARBONATE TAB 650 MG TAB PO SCH ×3 (08:40→21:54)
[2018-05-14] MEDS: MORPHINE SULFATE 2 MG/ML SYRINGE IVP PRN ×2 (08:46→12:08)
[2018-05-14] MEDS: ATORVASTATIN 40 MG TAB PO SCH (08:46)
[2018-05-14] MEDS ORDERED: BISACODYL 5 MG TABLET.DR PO STA (09:09)
[2018-05-14] MEDS ORDERED: POTASSIUM CHLORIDE ER 20 MEQ TAB.ER PO STA (09:09)
[2018-05-14] MEDS ORDERED: BISACODYL 10 MG SUPP RECTAL STA (09:19)
--- NOTE | 2018-05-14 09:44 | XR ---
EXAMINATION TYPE: XR abdomen 1V DATE OF EXAM: 05/14/2018 Comparison: None Clinical History: 82-year-old male abnormal CT of abdomen results Findings: NG tube courses below the diaphragm and is looped below the left hemidiaphragm, likely in the stomach . A CVC catheter is its tip at the cavoatrial junction region. There is patchy retrocardiac opacity. Supine imaging limited for assessment of free air. Cholecystectomy clips. No dilated bowel loops. Some air is seen within the stomach and also along the left side of the colon . Additional surgical clips of the right inguinal region. Impression: Patchy atelectasis or infiltrate in the retrocardiac region. Overall nonobstructive bowel gas pattern . Note that we are unable to find a comparison CT in the patient's folder.
--- NOTE | 2018-05-14 10:11 | PN ---
PROGRESS NOTE HISTORY: Patient is seen for followup for acute kidney injury. The patient was admitted to the hospital with pneumonia. He is currently requiring mechanical ventilation. Serum creatinine has improved with creatinine going down to 1.2 from 1.46 yesterday. Urine output is maintained at about 30 to 70 mL an hour. PHYSICAL EXAMINATION: This morning, blood pressure 133/49, heart rate is 72 per minute, patient is afebrile. Examination of the heart S1, S2. Examination of the lungs, decreased breath sounds at the bases. Abdomen is soft, distended. Bowel sounds are decreased. Examination of the lower extremities shows no significant edema. 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 LABS: Sodium 140, potassium 3.8, chloride 115, CO2 is 18, BUN 78, serum creatinine 1.28, hemoglobin of 9.2 g/dL. ASSESSMENT: 1. Acute kidney injury, acute tubular necrosis, currently improving. 2. Acute hypoxic and hypercapnic respiratory failure. Considering weaning. 3. Non-gap metabolic acidosis, maintained on oral sodium bicarb. 4. Pneumonia with concern for aspiration pneumonia, maintained on antibiotics. PLAN: Continue with the half-normal saline. Repeat labs in a.m. MMODL / IJN: [id number] /
--- NOTE | 2018-05-14 11:09 | P.PN ---
Subjective Progress Note Date: 05/14/18 Principal diagnosis: acute hypoxic respiratory failure secondary to pneumonia and congestive heart failure This is an 83-year-old white male with history of chronic kidney disease stage III, dementia, degenerative joint disease and previous knee replacement, patient resides at [facility] and he was found today's ago by caregivers as having difficulty breathing and shortness of breath. He was also febrile, and was developing more lethargy. He had 2 episodes of emesis. Patient was taken to [facility] emergency room. He was found to have multiple medical problems including pneumonia, sepsis, acute urinary tract infection, patient was admitted placed on Rocephin and clindamycin, felt the patient may have had aspiration pneumonia. At any rate patient's condition was deteriorating over the last 2 days, and arrangements were made for the patient to transfer to [facility]. He was placed on BiPAP, and as he arrived to the ER, he was noted to be in extreme respiratory distress. He was intubated by the ER physician immediately if. Apparently he had a DO NOT RESUSCITATE CODE STATUS prior to transfer, but on the way down here his reversed his CODE STATUS to full code. Patient was intubated placed on mechanical ventilation, a right subclavian central line was placed by the ER physician. The patient was relatively hypotensive requiring pressors and eventually transferred to the ICU. I didn't evaluate the patient in the ICU, reviewed her chest x-ray, labs, right radial arterial line was placed, and repeat blood gases were done ventilator settings will be adjusted accordingly. He is presently on 100% FiO2, assist control rate of 20 tidal volume of 500 PEEP of 8. Repeat ABG is pending patient is sedated, presently on mechanical ventilation. And not much history could be obtained other than what I have reviewed in the chart from [facility] and from our ER physician. Chest x-ray showed increase central hilar lung markings and diffuse infiltrates bilaterally , the chest x-ray is consistent with bilateral pneumonia, however interstitial edema is not ruled out. There is also small left pleural effusion noted. Patient was reevaluated today on 05/12/2018, remains on mechanical ventilation. His ventilator settings are assist control rate of 20 volume of 550 FiO2 of 45% and PEEP is 5. Remains on propofol at 25 mcg/kg/m, not requiring any norepinephrine at present.chest x-ray is showing definite improvement in his bilateral pneumonia and interstitial edema. His labs showed relatively normal CBC, hemoglobin is 10.1. ABG this morning showed a pO2 of 157 pCO2 of 33 pH of 7.34 hence the PEEP was cut down to 5 from 8 and the FiO2 was cut down from 50% to 45%. His electrolytes however showed hypernatremia hyperchloremia and hyperchloremic metabolic acidosis non-anion gap. His IV fluid was changed to D5W. And it's will remain at the same rate at 100 mL per hour. Urine output seems to be marginal. His renal functioning iis slightly worse today, 1.53 creatinine, it was 1.26 yesterday.clearly the patient developed acute kidney injury, and hoping that we would hold diuretics, will give the patient fluids to correct his renal profile and correct his hypernatremia.troponin is still elevated today at 12.4.patient was given a trial of weaning off propofol, however he became extremely agitated, restless, and was not synchronizing with the vent. Patient was reevaluated today on 05/13/2018, remains on mechanical ventilation, and his ventilator settings are basically unchanged as noted above. Remains on propofol which I plan to discontinue today, he is not requiring any pressors. Patient remains on tube feeding via orogastric tube. Chest x-ray continues to show improvement but not clear yet. Suspicious for underlying pneumonia most likely aspiration pneumonia.ABG this morning was noted pO2 of 134 pCO2 of 31 pH of 7.37.BUN was 68 creatinine 1.46.CBC is relatively normal.chest x-ray bibasilar opacities noted. Again relatively improved compared to admission chest x-ray. Patient was reevaluated today on 05/14/2018, remains on mechanical ventilation. Ventilator settings are basically the same, he is on 40% FiO2, tidal volume of 550 assist-control rate of 20 and PEEP of 5.ABG showed a pO2 of 129 pCO2 of 32 pH of 7.35. Electrolytes were reviewed to be normal, bicarb is a bit low at 18 , patient remains on sodium bicarb via nasogastric tube..BUN was noted to be a bit elevated today at 7.8, creatinine is 1.28, probably improving and back to his baseline on admission 1.26.chest x-ray continues to show bilateral lower lobe infiltrates, small tiny effusions, not large enough to consider thoracentesis. Patient remains on antibiotics, he remains onbronchodilators, eliquis, aspirin, Lipitor, insulin as per protocol,Levaquin and Zosyn, his also on methylprednisolone which I plan to cut down further and eventually switch him to by mouth prednisone.not requiring any pressors. Yesterday the patient went on a trial of weaning, however as sedation wore off, patient became extremely agitated, heart rate was noted to be quite high, and his blood pressure was noted to be elevated. Considering his dementia, patient was never appropriate. Hence he had to be placed back on assist control mode of mechanical ventilation, and we will likely try again today a weaning trial.patient is on propofol, however is not requiring any pressors at this point. Objective - Vital Signs Vital signs: Vital Signs Temp 97.9 F 05/14/18 04:00 Pulse 72 05/14/18 07:00 Resp 20 05/14/18 07:00 BP 96/53 05/14/18 07:00 Pulse Ox 97 05/14/18 07:00 Intake & Output 05/13/18 05/14/18 05/14/18 18:59 06:59 18:59 Intake Total 2144.232 2212 256 Output Total 1390 595 50 Balance 631.423 4634 206 Weight 71.1 kg 76.7 kg Intake: IV 1272 1272 106 0.9% NS pressure bag 72 72 6 Sodium Chloride 0.45% 1, 1200 1200 100 000 ml @ 100 mls/hr IV . Q10H [facility] Rx#:[id number] Intake, IV Titration 412.232 100 100 Amount Heparin Sod,Pork in 0.45% 201.95 NaCl 25,000 unit In 0.45 % NaCl 1 250ml.bag @ 12 UNITS/KG/HR 8.16 mls/hr IV .Q24H [facility] Rx#: [id number] Insulin Regular 100 unit 27.600 In Sodium Chloride 0.9% 100 ml @ Per Protocol IV .Q0M [facility] Rx#:[id number] Piperacillin-Tazobactam 3 100 .375 gm In Sodium Chloride 0.9% 100 ml @ 25 mls/hr IVPB Q8HR [facility] Rx# :[id number] Propofol 1,000 mg In 82.682 100 100 Empty Bag 1 bag @ Titrate IV .Q0M [facility] Rx#: [id number] Tube Feeding 400 750 50 Other 60 90 Output: Urine 1390 595 50 Other: Voiding Method Indwelling Catheter Indwelling Catheter ABP, PAP, CO, CI - Last Documented Arterial Blood Pressure 133/49 - Exam Physical Exam: Revealed an 83-year-old white male on mechanical ventilation, sedated. Head: Atraumatic normocephalic. HEENT:[Neck is supple.] [No neck masses.] [No thyromegaly.] [No JVD.] PERRLA, EOMI, no icterus. Endotracheal tube and orogastric tube are noted to be intact Chest: [nor rhonchi no wheezes, crackles at the bases. Symmetrical chest expansion, no chest wall tenderness, right infraclavicular subclavian central line remains in place Cardiac Exam: [Normal S1 and S2, no S3 gallop, 2/6 systolic murmur thought the precordium. Abdomen: [slightly distended,, nontender, no megaly, no rebound, no guarding, diminished bowel sounds,] Extremities: [No clubbing, no edema, no cyanosis.] Good pulses bilaterally in upper and lower extremities. Neurological Exan: patient is sedated,could not be assessed. Skin: No rashes. Psychiatric: Could not be assessed. Lymphatics: No lymphadenopathy. - Labs CBC & Chem 7: 05/14/18 04:41 05/14/18 04:41 Labs: Abnormal Lab Results - Last 24 Hours (Table) 05/13/18 05/13/18 05/13/18 Range/Units 12:03 12:03 12:06 RBC (4.30-5.90) m/uL Hgb (13.0-17.5) gm/dL Hct (39.0-53.0) % Lymphocytes # (1.0-4.8) k/uL ABG pCO2 (35-45) mmHg ABG pO2 (83-108) mmHg ABG HCO3 (21-25) mmol/L ABG O2 Saturation (94-97) % Chloride (98-107) mmol/L Carbon Dioxide (22-30) mmol/L BUN (9-20) mg/dL Creatinine (0.66-1.25) mg/dL Glucose (74-99) mg/dL POC Glucose (mg/dL) 203 H (75-99) mg/dL Calcium (8.4-10.2) mg/dL Magnesium (1.6-2.3) mg/dL Troponin I 3.770 H* (0.000-0.034) ng/mL Procalcitonin 3.95 H (0.02-0.09) ng/mL 05/13/18 05/13/18 05/13/18 Range/Units 14:22 15:30 16:02 RBC (4.30-5.90) m/uL Hgb (13.0-17.5) gm/dL Hct (39.0-53.0) % Lymphocytes # (1.0-4.8) k/uL ABG pCO2 (35-45) mmHg ABG pO2 (83-108) mmHg ABG HCO3 (21-25) mmol/L ABG O2 Saturation (94-97) % Chloride (98-107) mmol/L Carbon Dioxide (22-30) mmol/L BUN (9-20) mg/dL Creatinine (0.66-1.25) mg/dL Glucose (74-99) mg/dL POC Glucose (mg/dL) 163 H 132 H 126 H (75-99) mg/dL Calcium (8.4-10.2) mg/dL Magnesium (1.6-2.3) mg/dL Troponin I (0.000-0.034) ng/mL Procalcitonin (0.02-0.09) ng/mL 05/13/18 05/13/18 05/14/18 Range/Units 18:05 20:14 00:18 RBC (4.30-5.90) m/uL Hgb (13.0-17.5) gm/dL Hct (39.0-53.0) % Lymphocytes # (1.0-4.8) k/uL ABG pCO2 (35-45) mmHg ABG pO2 (83-108) mmHg ABG HCO3 (21-25) mmol/L ABG O2 Saturation (94-97) % Chloride (98-107) mmol/L Carbon Dioxide (22-30) mmol/L BUN (9-20) mg/dL Creatinine (0.66-1.25) mg/dL Glucose (74-99) mg/dL POC Glucose (mg/dL) 171 H 192 H 176 H (75-99) mg/dL Calcium (8.4-10.2) mg/dL Magnesium (1.6-2.3) mg/dL Troponin I (0.000-0.034) ng/mL Procalcitonin (0.02-0.09) ng/mL 05/14/18 05/14/18 05/14/18 Range/Units 04:31 04:41 04:41 RBC 2.85 L (4.30-5.90) m/uL Hgb 9.2 L (13.0-17.5) gm/dL Hct 27.8 L (39.0-53.0) % Lymphocytes # 0.6 L (1.0-4.8) k/uL ABG pCO2 (35-45) mmHg ABG pO2 (83-108) mmHg ABG HCO3 (21-25) mmol/L ABG O2 Saturation (94-97) % Chloride 115 H (98-107) mmol/L Carbon Dioxide 18 L (22-30) mmol/L BUN 78 H (9-20) mg/dL Creatinine 1.28 H (0.66-1.25) mg/dL Glucose 215 H (74-99) mg/dL POC Glucose (mg/dL) 222 H (75-99) mg/dL Calcium 7.4 L (8.4-10.2) mg/dL Magnesium 2.6 H (1.6-2.3) mg/dL Troponin I (0.000-0.034) ng/mL Procalcitonin (0.02-0.09) ng/mL 05/14/18 05/14/18 Range/Units 05:22 08:17 RBC (4.30-5.90) m/uL Hgb (13.0-17.5) gm/dL Hct (39.0-53.0) % Lymphocytes # (1.0-4.8) k/uL ABG pCO2 32 L (35-45) mmHg ABG pO2 129 H (83-108) mmHg ABG HCO3 18 L (21-25) mmol/L ABG O2 Saturation 99.1 H (94-97) % Chloride (98-107) mmol/L Carbon Dioxide (22-30) mmol/L BUN (9-20) mg/dL Creatinine (0.66-1.25) mg/dL Glucose (74-99) mg/dL POC Glucose (mg/dL) 232 H (75-99) mg/dL Calcium (8.4-10.2) mg/dL Magnesium (1.6-2.3) mg/dL Troponin I (0.000-0.034) ng/mL Procalcitonin (0.02-0.09) ng/mL Microbiology - Last 24 Hours (Table) 05/11/18 19:57 Gram Stain - Final Sputum Sputum Culture - Final 05/12/18 20:55 Urine Culture - Final Urine,Catheterized 05/11/18 16:37 Blood Culture - Preliminary Blood No Growth after 48 hours 05/11/18 16:37 Blood Culture - Preliminary Blood No Growth after 48 hours Assessment and Plan Assessment: Impression: 1 acute hypoxic respiratory failure secondary to pneumonia, aspiration in nature unless proven otherwise. 2 acute sepsis secondary to pneumonia, 3 suspect some component of congestive heart failure, Systolic in nature.echocardiogram was noted. 4 history of dementia 5 degenerative joint disease and previous knee replacement./Left knee 6 acute on chronic kidney injury, patient has chronic kidney disease stage III. His acute kidney injury could be related to acute tubular necrosis. Improving 7 acute non-ST elevation myocardial infarction is strongly suspected based on the fact the patient had elevated troponin 8 history of hypothyroidism 9 history of deep vein thrombosis 10 history of mild asthma 12 constipation, no obstructive pattern noted on his flat plate of the abdomen has the patient will be given Dulcolax. recommendation: continue mechanical ventilation, nutritional support, antibiotics, DVT and GI prophylaxis, sodium bicarb orally or via nasogastric tube rather. Continue to monitor electrolytes, continue to monitor renal profile. Patient is hemodynamically not requiring any pressors at present. Continue daily interruption of sedation and assessment for possible weaning. Yesterday the patient was given a trial, however he became extremely agitated, and heart rate noted to go up, he was tachypneic, and tachycardic. Hence no further trials were made yesterday. Hopefully we'll try to do that again. Overall the patient remains critically ill, no family members today available, but they have been updated on his condition couple of days ago. CODE STATUS remains full code, may have to approach the family again regarding CODE STATUS. reviewed flat plate of the abdomen, there is no evidence of obstructive pattern. Critical care time is 32 minutes Time with Patient: Greater than 30
[2018-05-14] MEDS ORDERED: amLODIPine 10 MG TAB PO SCH (11:15)
[2018-05-14] MEDS ORDERED: LISINOPRIL 5 MG TAB PO SCH (11:15)
[2018-05-14] MEDS: amLODIPine 5 MG TAB PO SCH (11:34)
[2018-05-14] MEDS: LISINOPRIL 10 MG TAB PO SCH (11:34)
[2018-05-14 12:02] LABS: Glucose,Whole Blood 202 mg/dL (75-99)
[2018-05-14] MEDS ORDERED: INSULIN ASPART (NovoLOG) 100 UNIT/ML VIAL SQ ONE (12:19)
--- NOTE | 2018-05-14 13:43 | P.PN ---
Subjective 83-year-old gentleman admitted for pneumonia and heart failure. Patient is intubated and sedated. Did not tolerate weaning as his blood pressure went up, had to be sedated again Objective - Vital Signs Vital signs: Vital Signs Temp 97.9 F 05/14/18 04:00 Pulse 84 05/14/18 11:40 Resp 20 05/14/18 07:00 BP 96/53 05/14/18 07:00 Pulse Ox 97 05/14/18 07:00 Intake & Output 05/13/18 05/14/18 05/14/18 18:59 06:59 18:59 Intake Total 2144.232 2212 342.595 Output Total 1390 595 50 Balance 618.707 4493 292.595 Weight 71.1 kg 76.7 kg Intake: IV 1272 1272 106 0.9% NS pressure bag 72 72 6 Sodium Chloride 0.45% 1, 1200 1200 100 000 ml @ 100 mls/hr IV . Q10H [facility] Rx#:[id number] Intake, IV Titration 412.232 100 186.595 Amount Heparin Sod,Pork in 0.45% 201.95 NaCl 25,000 unit In 0.45 % NaCl 1 250ml.bag @ 12 UNITS/KG/HR 8.16 mls/hr IV .Q24H [facility] Rx#: [id number] Insulin Regular 100 unit 27.600 In Sodium Chloride 0.9% 100 ml @ Per Protocol IV .Q0M [facility] Rx#:[id number] Piperacillin-Tazobactam 3 100 .375 gm In Sodium Chloride 0.9% 100 ml @ 25 mls/hr IVPB Q8HR [facility] Rx# :[id number] Propofol 1,000 mg In 82.682 100 186.595 Empty Bag 1 bag @ Titrate IV .Q0M [facility] Rx#: [id number] Tube Feeding 400 750 50 Other 60 90 Output: Urine 1390 595 50 Other: Voiding Method Indwelling Catheter Indwelling Catheter Indwelling Catheter ABP, PAP, CO, CI - Last Documented Arterial Blood Pressure 133/49 - Exam On exam, intubated and sedated HEENT: Conjunctivae normal. eyes normal. NECK: No JVD. No thyroid enlargement. No LNs CARDIOVASCULAR: S1-S2 positive RESPIRATION: Patient is having crackles at the bases ABDOMEN: Soft, nontender . No guarding. no masses palpable. No ascites, No hepatosplenomegaly.Bowel sounds heard. LEGS: No edema. no swelling NERVOUS SYSTEM: Not able to examine her neurological status as the patient is intubated and sedated Skin: no ulcer no rash - Labs CBC & Chem 7: 05/14/18 04:41 05/14/18 04:41 Labs: Abnormal Lab Results - Last 24 Hours (Table) 05/13/18 05/13/18 05/13/18 Range/Units 12:03 14:22 15:30 RBC (4.30-5.90) m/uL Hgb (13.0-17.5) gm/dL Hct (39.0-53.0) % Lymphocytes # (1.0-4.8) k/uL ABG pCO2 (35-45) mmHg ABG pO2 (83-108) mmHg ABG HCO3 (21-25) mmol/L ABG O2 Saturation (94-97) % Chloride (98-107) mmol/L Carbon Dioxide (22-30) mmol/L BUN (9-20) mg/dL Creatinine (0.66-1.25) mg/dL Glucose (74-99) mg/dL POC Glucose (mg/dL) 163 H 132 H (75-99) mg/dL Calcium (8.4-10.2) mg/dL Magnesium (1.6-2.3) mg/dL Procalcitonin 3.95 H (0.02-0.09) ng/mL 05/13/18 05/13/18 05/13/18 Range/Units 16:02 18:05 20:14 RBC (4.30-5.90) m/uL Hgb (13.0-17.5) gm/dL Hct (39.0-53.0) % Lymphocytes # (1.0-4.8) k/uL ABG pCO2 (35-45) mmHg ABG pO2 (83-108) mmHg ABG HCO3 (21-25) mmol/L ABG O2 Saturation (94-97) % Chloride (98-107) mmol/L Carbon Dioxide (22-30) mmol/L BUN (9-20) mg/dL Creatinine (0.66-1.25) mg/dL Glucose (74-99) mg/dL POC Glucose (mg/dL) 126 H 171 H 192 H (75-99) mg/dL Calcium (8.4-10.2) mg/dL Magnesium (1.6-2.3) mg/dL Procalcitonin (0.02-0.09) ng/mL 05/14/18 05/14/18 05/14/18 Range/Units 00:18 04:31 04:41 RBC 2.85 L (4.30-5.90) m/uL Hgb 9.2 L (13.0-17.5) gm/dL Hct 27.8 L (39.0-53.0) % Lymphocytes # 0.6 L (1.0-4.8) k/uL ABG pCO2 (35-45) mmHg ABG pO2 (83-108) mmHg ABG HCO3 (21-25) mmol/L ABG O2 Saturation (94-97) % Chloride (98-107) mmol/L Carbon Dioxide (22-30) mmol/L BUN (9-20) mg/dL Creatinine (0.66-1.25) mg/dL Glucose (74-99) mg/dL POC Glucose (mg/dL) 176 H 222 H (75-99) mg/dL Calcium (8.4-10.2) mg/dL Magnesium (1.6-2.3) mg/dL Procalcitonin (0.02-0.09) ng/mL 05/14/18 05/14/18 05/14/18 Range/Units 04:41 05:22 08:17 RBC (4.30-5.90) m/uL Hgb (13.0-17.5) gm/dL Hct (39.0-53.0) % Lymphocytes # (1.0-4.8) k/uL ABG pCO2 32 L (35-45) mmHg ABG pO2 129 H (83-108) mmHg ABG HCO3 18 L (21-25) mmol/L ABG O2 Saturation 99.1 H (94-97) % Chloride 115 H (98-107) mmol/L Carbon Dioxide 18 L (22-30) mmol/L BUN 78 H (9-20) mg/dL Creatinine 1.28 H (0.66-1.25) mg/dL Glucose 215 H (74-99) mg/dL POC Glucose (mg/dL) 232 H (75-99) mg/dL Calcium 7.4 L (8.4-10.2) mg/dL Magnesium 2.6 H (1.6-2.3) mg/dL Procalcitonin (0.02-0.09) ng/mL 05/14/18 Range/Units 11:51 RBC (4.30-5.90) m/uL Hgb (13.0-17.5) gm/dL Hct (39.0-53.0) % Lymphocytes # (1.0-4.8) k/uL ABG pCO2 (35-45) mmHg ABG pO2 (83-108) mmHg ABG HCO3 (21-25) mmol/L ABG O2 Saturation (94-97) % Chloride (98-107) mmol/L Carbon Dioxide (22-30) mmol/L BUN (9-20) mg/dL Creatinine (0.66-1.25) mg/dL Glucose (74-99) mg/dL POC Glucose (mg/dL) 202 H (75-99) mg/dL Calcium (8.4-10.2) mg/dL Magnesium (1.6-2.3) mg/dL Procalcitonin (0.02-0.09) ng/mL Microbiology - Last 24 Hours (Table) 05/11/18 19:57 Gram Stain - Final Sputum Sputum Culture - Final 05/12/18 20:55 Urine Culture - Final Urine,Catheterized 05/11/18 16:37 Blood Culture - Preliminary Blood No Growth after 48 hours 05/11/18 16:37 Blood Culture - Preliminary Blood No Growth after 48 hours Assessment and Plan Assessment: - Acute respiratory failure secondary - Pneumonia need to rule out aspiration pneumonia - Sepsis - Non-STEMI - Acute CHF exacerbation due to systolic dysfunction contributing to respiratory failure - Chronic kidney disease stage III - History of DVT Plan - Patient is on ventilator management the ICU. Appreciated the recommendations. - Continue antibiotics as per I's recommendations - Did not tolerate weaning today, had to be sedated again - Nephrology on board on gentle hydration - Patient is followed by cardiology, medical management for now - Continue current management - We'll continue to follow the patient - Case discussed with the nurse and the family at the bedside Time with Patient: Greater than 30
[2018-05-14] MEDS: LEVOFLOXACIN 250MG-D5W PMX 250 MG in DEXTROSE/WATER 1 50ML.BAG IVPB SCH (16:19)
[2018-05-14 17:13] LABS: Glucose,Whole Blood 185 mg/dL (75-99)
[2018-05-14 20:02] LABS: Glucose,Whole Blood 166 mg/dL (75-99)
--- NOTE | 2018-05-14 21:53 | P.PN ---
Subjective Progress Note Date: 05/14/18 Patient's medical records reviewed. Patient remains intubated. The remaining was unsuccessful. Patient's systolic blood pressure remains elevated. Amlodipine and lisinopril is identified. Patient remains in atrial fibrillation with a controlled rate. Patient is anticoagulated with Eliquis Objective - Vital Signs Vital signs: Vital Signs Temp 96.1 F L 05/14/18 21:00 Pulse 78 05/14/18 21:00 Resp 20 05/14/18 21:00 BP 96/53 05/14/18 07:00 Pulse Ox 99 05/14/18 21:00 Intake & Output 05/14/18 05/14/18 05/15/18 06:59 18:59 06:59 Intake Total 2212 2246.000 598.925 Output Total 595 1070 220 Balance 1617 1176.000 378.925 Weight 76.7 kg Intake: IV 1272 1166 312 0.9% NS pressure bag 72 66 12 Sodium Chloride 0.45% 1, 1200 1100 300 000 ml @ 100 mls/hr IV . Q10H [facility] Rx#:[id number] Intake, IV Titration 100 400.000 56.925 Amount Levofloxacin 250Mg-D5w 50 Pmx 250 mg In Dextrose/ Water 1 50ml.bag @ 50 mls /hr IVPB Q24H [facility] Rx#: [id number] Piperacillin-Tazobactam 3 150 .375 gm In Sodium Chloride 0.9% 100 ml @ 25 mls/hr IVPB Q8HR [facility] Rx# :[id number] Propofol 1,000 mg In 100 200.000 56.925 Empty Bag 1 bag @ Titrate IV .Q0M [facility] Rx#: [id number] Tube Feeding 750 590 200 Other 90 90 30 Output: Urine 595 1070 220 Other: Voiding Method Indwelling Catheter Indwelling Catheter ABP, PAP, CO, CI - Last Documented Arterial Blood Pressure 150/45 - Exam Patient's vital signs are reviewed. Patient remains intubated. HEENT negative. Neck-supple no increase in JVP noted no carotid bruits noted. Chest-symmetrical. Heart-first and second heart sounds are normal. No S3 or S4 is noted. No significant murmurs are noted. Patient remains in atrial fibrillation. Lungs bilateral good at entry is noted. No rales or rhonchi are noted Abdomen-soft. Liver and spleen are not enlarged. The bowel sounds are normal. No tenderness noted Extremities-peripheral pulses since are 2+. No significant leg edema noted. Neuro-no significant gross abnormality noted. - Labs CBC & Chem 7: 05/14/18 04:41 05/14/18 04:41 Labs: Abnormal Lab Results - Last 24 Hours (Table) 05/14/18 05/14/18 05/14/18 Range/Units 00:18 04:31 04:41 RBC 2.85 L (4.30-5.90) m/uL Hgb 9.2 L (13.0-17.5) gm/dL Hct 27.8 L (39.0-53.0) % Lymphocytes # 0.6 L (1.0-4.8) k/uL ABG pCO2 (35-45) mmHg ABG pO2 (83-108) mmHg ABG HCO3 (21-25) mmol/L ABG O2 Saturation (94-97) % Chloride (98-107) mmol/L Carbon Dioxide (22-30) mmol/L BUN (9-20) mg/dL Creatinine (0.66-1.25) mg/dL Glucose (74-99) mg/dL POC Glucose (mg/dL) 176 H 222 H (75-99) mg/dL Calcium (8.4-10.2) mg/dL Magnesium (1.6-2.3) mg/dL 05/14/18 05/14/18 05/14/18 Range/Units 04:41 05:22 08:17 RBC (4.30-5.90) m/uL Hgb (13.0-17.5) gm/dL Hct (39.0-53.0) % Lymphocytes # (1.0-4.8) k/uL ABG pCO2 32 L (35-45) mmHg ABG pO2 129 H (83-108) mmHg ABG HCO3 18 L (21-25) mmol/L ABG O2 Saturation 99.1 H (94-97) % Chloride 115 H (98-107) mmol/L Carbon Dioxide 18 L (22-30) mmol/L BUN 78 H (9-20) mg/dL Creatinine 1.28 H (0.66-1.25) mg/dL Glucose 215 H (74-99) mg/dL POC Glucose (mg/dL) 232 H (75-99) mg/dL Calcium 7.4 L (8.4-10.2) mg/dL Magnesium 2.6 H (1.6-2.3) mg/dL 05/14/18 05/14/18 05/14/18 Range/Units 11:51 17:00 19:51 RBC (4.30-5.90) m/uL Hgb (13.0-17.5) gm/dL Hct (39.0-53.0) % Lymphocytes # (1.0-4.8) k/uL ABG pCO2 (35-45) mmHg ABG pO2 (83-108) mmHg ABG HCO3 (21-25) mmol/L ABG O2 Saturation (94-97) % Chloride (98-107) mmol/L Carbon Dioxide (22-30) mmol/L BUN (9-20) mg/dL Creatinine (0.66-1.25) mg/dL Glucose (74-99) mg/dL POC Glucose (mg/dL) 202 H 185 H 166 H (75-99) mg/dL Calcium (8.4-10.2) mg/dL Magnesium (1.6-2.3) mg/dL Microbiology - Last 24 Hours (Table) 05/11/18 16:37 Blood Culture - Preliminary Blood No Growth after 72 hours 05/11/18 16:37 Blood Culture - Preliminary Blood No Growth after 72 hours 05/11/18 19:57 Gram Stain - Final Sputum Sputum Culture - Final 05/12/18 20:55 Urine Culture - Final Urine,Catheterized Assessment and Plan Assessment: Atrial fibrillation with controlled rate. Hypertension. Patient is started on amlodipine and lisinopril. Patient's creatinine is 1.28.
[2018-05-15] MEDS: PIPERACILLIN-TAZOBACTAM 3.375 GM in SODIUM CHLORIDE 0.9% 100 ML IVPB SCH ×3 (00:11→17:35)
[2018-05-15] MEDS: INSULIN ASPART (NovoLOG) 100 UNIT/ML VIAL SQ SCH ×5 (00:11→17:35)
[2018-05-15 00:17] LABS: Glucose,Whole Blood 151 mg/dL (75-99)
[2018-05-15] MEDS: SODIUM CHLORIDE 0.45% 1,000 ML IV SCH ×2 (02:13→12:26)
[2018-05-15 04:09] LABS: Glucose,Whole Blood 197 mg/dL (75-99)
[2018-05-15 04:48] LABS: ABG Base Excess -5.9 mmol/L; ABG HCO3 19 mmol/L (21-25); ABG Oxygen Saturation 99.1 % (94-97); ABG PCO2 31 mmHg (35-45); ABG PO2 117 mmHg (83-108); ABG TCO2 20 mmol/L (19-24)
[2018-05-15 05:22] LABS: Glucose,Whole Blood 199 mg/dL (75-99)
[2018-05-15 05:23] LABS: Basophils % (A) 0 %; Eosinophils % (A) 0 %; HCT 31.1 % (39.0-53.0); HGB 10.2 gm/dL (13.0-17.5); Lymphocytes # (A) 0.7 k/uL (1.0-4.8); Lymphocytes % (A) 5 %; MCHC 32.7 g/dL (31.0-37.0); MCV 97.9 fL (80.0-100.0); Mean Platelet Volume 8.2; Monocytes # (A) 0.5 k/uL (0-1.0); Monocytes % (A) 4 %; Neutrophils # (A) 11.2 k/uL (1.3-7.7); Neutrophils % (A) 89 %; Platelet Count 319 k/uL (150-450); RBC 3.18 m/uL (4.30-5.90); RDW 14.3 % (11.5-15.5); WBC 12.5 k/uL (3.8-10.6)
[2018-05-15 05:32] LABS: Calcium 7.3 mg/dL (8.4-10.2); Magnesium 2.8 mg/dL (1.6-2.3); Phosphorus 3.4 mg/dL (2.5-4.5); Potassium 4.8 mmol/L (3.5-5.1)
[2018-05-15] MEDS: PROPOFOL 1,000 MG in EMPTY BAG 1 BAG IV SCH ×3 (05:50→17:34)
[2018-05-15] MEDS: BUDESONIDE 0.5 MG/2 ML NEBU INHALATION SCH (07:16)
[2018-05-15] MEDS: IPRATROPIUM-ALBUTEROL 3 ML NEB INHALATION PRN ×2 (07:16→11:08)
--- NOTE | 2018-05-15 07:35 | XR ---
EXAMINATION TYPE: XR chest 1V portable DATE OF EXAM: 05/15/2018 Comparison: 05/14/2018 Clinical History: 83-year-old male Tube placement Findings: ET tube pulled back slightly in the interval. Tip now located 3.4 cm from the fuentes, satisfactory. N G tube courses below the diaphragm. Heart normal size. Atherosclerotic arch calcifications. Right sub clavian CVC tip at the caval atrial junction. Diffuse interstitial prominence with small bilateral pl eural effusions and patchy bibasilar densities persist. Impression: 1. Satisfactory repositioning of ET tube. 2. Continued small pleural effusions with adjacent atelectasis and/or consolidation.
[2018-05-15] MEDS ORDERED: BISACODYL 10 MG SUPP RECTAL STA (08:06)
[2018-05-15] MEDS: amLODIPine 5 MG TAB PO SCH (08:23)
[2018-05-15] MEDS: SODIUM BICARBONATE TAB 650 MG TAB PO SCH ×2 (08:23→17:35)
[2018-05-15] MEDS: ATORVASTATIN 40 MG TAB PO SCH (08:23)
[2018-05-15] MEDS: PANTOPRAZOLE 40 MG/10 ML VIAL IV SCH (08:23)
[2018-05-15] MEDS: ASPIRIN 81 MG PO SCH (08:23)
[2018-05-15] MEDS: LISINOPRIL 10 MG TAB PO SCH (08:23)
[2018-05-15] MEDS: APIXABAN 5 MG TAB PO SCH (08:23)
[2018-05-15] MEDS: methylPREDNISolone SOD SUCCI 40 MG/ML 1 ML VIAL IV SCH (08:24)
[2018-05-15] MEDS: CHLORHEXIDINE GLUCONATE 15 ML CUP MUCOUS MEM SCH (08:40)
[2018-05-15] MEDS: MORPHINE SULFATE 2 MG/ML SYRINGE IVP PRN ×2 (08:56→14:46)
[2018-05-15 10:08] VITALS: BMI 25.6
[2018-05-15 10:14] LABS: Glucose,Whole Blood 145 mg/dL (75-99)
--- NOTE | 2018-05-15 10:33 | PN ---
PROGRESS NOTE DATE OF SERVICE: May 15, 2018 This is an 83-year-old male who was admitted on the 11 of May. He apparently was at [facility] maybe for a day or so before he ended up being transferred down. He was intubated on the . His diagnosis was that of hypoxemic respiratory failure and pneumonia. Currently, the patient remains on levofloxacin and Zosyn. The patient's microbiology thus far is negative. The patient is currently on the ventilator. He is on the assist-control mode rate of 20, tidal volume 550, FiO2 of 40%, PEEP of 5. The blood gases show a pO2 117, pCO2 of 31, pH 7.40. The patient is receiving a 0.45 IV at 100 mL an hour, Diprivan at 45 mcg/kg per minute, saline at 5 mL an hour, Vital AF at 50 with a goal of 50 mL an hour. Anyway, the patient currently has had daily interruptions of sedation over the last couple days, but has become very unstable. The patient apparently becomes very agitated, blood pressure goes up, respiratory rate and heart rate goes up and the patient has not really been given a spontaneous breathing trial. The ventilator is changed a bit. The tidal volume is dropped from 550 to 450 and the rate is increased from an AC of 20 up to 26. The patient's chest x-ray shows a well- positioned endotracheal tube, some atelectasis and consolidation at the bases. There is small effusions by bilaterally. Microbiology as I mentioned still negative. Current vital signs are reviewed. Temperature is 97, heart rate 84, respiratory rate 26, blood pressure 141/46, CVP is 6, saturations are mid 90s with an FiO2 of 40% and 5 of PEEP. Currently sedated. Appears in no acute distress. HEENT examination is grossly unremarkable. Mucous membranes are moist. No oral lesions. Endotracheal tube is noted. NECK: Supple. Full range of motion. No adenopathy or thyromegaly. Neck veins are flat. Cardiovascular examination reveals regular rhythm and rate. Heart rate in the mid 80s. Lungs reveal coarse bilateral rhonchi. No wheezes. There is a few scattered crackles. Breath sounds equal bilaterally. Abdomen is soft. Bowel sounds are heard. Extremities are intact. No cyanosis, clubbing, or edema. Skin without rash. Neurologic examination could not be adequately performed because the patient is currently sedated. He is triggering the ventilator. Microbiology is negative. Labs are reviewed. White count 12.5, hemoglobin 10.2, hematocrit 31.1, platelet count 319,000. Blood gases have been noted. The PO2 117, pCO2 31, pH 7.40. These blood gases consistent with a mixed acid-base disturbance including a respiratory alkalosis and mild metabolic acidosis. Sodium 140, potassium 4.8, chloride 117, CO2 of 19 and anion gap is 4/ BUN 76, creatinine 1.03. Blood gases are consistent with a non-anion gap hyperchloremic metabolic acidosis. Magnesium is 2.8. Phosphorus is 3.4. Calcium 7.3. Medications are reviewed. Appropriate changes were made where needed. ASSESSMENT: 1. Acute hypoxemic respiratory failure secondary to bilateral pneumonia, possibly aspiration in nature. 2. Routine ventilator management in this patient with hypoxemic respiratory failure. 3. Acute sepsis secondary to pneumonia. 4. Mild congestive heart failure, systolic in nature. 5. History of dementia. 6. History of degenerative joint disease with previous knee replacement on the left. 7. History of acute on chronic kidney injury. The patient has stage 3 chronic kidney disease. 8. Acute non ST-segment elevation myocardial infarction. 9. History of hypothyroidism. 10.History of deep venous thrombosis. 11.History of mild asthma. 12.Chronic constipation. PLAN: The patient's tidal volume is reduced from 550 down to 450. The rate is increased from 20 to 26. His microbiology is negative. Chest x-ray is reviewed. Medications are reviewed. Adjustments were made to appropriate. We will do a daily interruption of sedation, although he has failed his last two. Possible spontaneous breathing trial. Additional recommendations and suggestions are forthcoming. CRITICAL CARE TIME: 33 minutes. MMMATEUSL / FAVIANN: [id number] /
[2018-05-15 11:03] VITALS: TEMP 97.3
[2018-05-15 12:12] LABS: Glucose,Whole Blood 160 mg/dL (75-99)
[2018-05-15 12:40] LABS: Glucose,Whole Blood 165 mg/dL (75-99)
--- NOTE | 2018-05-15 12:54 | PN ---
PROGRESS NOTE Patient is seen for followup for acute kidney injury. He is currently on the vent. The patient has had good urine output. They have plans for possible weaning today. PHYSICAL EXAMINATION: On examination, blood pressure was 126/43, heart rate 81 per minute. Patient is afebrile. EXAMINATION OF THE HEART: S1, S2. EXAMINATION OF THE LUNGS: Bilateral breath sounds are heard. Decreased breath sounds at the bases. Abdomen is soft. Examination of the lower extremities shows no significant edema. LABS: Labs show hemoglobin 10.2, sodium 140, potassium 4.8, chloride 117, BUN 76 serum creatinine down to 1.03. ASSESSMENT: 1. Acute kidney injury, acute tubular necrosis, currently nonoliguric with improving renal function. 2. Acute hypoxic respiratory failure secondary to pneumonia/aspiration pneumonia. 3. Hypertension, controlled. Patient is maintained on FRANSISCO inhibitors, which we can continue. 4. Metabolic acidosis secondary to renal failure, maintained on oral sodium bicarb. 5. Atrial fibrillation with controlled ventricular response. PLAN: Continue with half-normal saline. May continue with FRANSISCO inhibitors. Repeat labs in a.m. MMODL / IJN: [id number] /
[2018-05-15 13:23] LABS: Glucose,Whole Blood 150 mg/dL (75-99)
[2018-05-15 13:23] LABS: Glucose,Whole Blood 160 mg/dL (75-99)
[2018-05-15] MEDS ORDERED: LEVOFLOXACIN 500MG-D5W PMX 500 MG in DEXTROSE/WATER 1 100ML.BAG IVPB SCH (14:00)
[2018-05-15] MEDS ORDERED: IPRATROPIUM-ALBUTEROL 3 ML NEB INHALATION SCH (16:00)
[2018-05-15 18:47] VITALS: PULSE 80; RESP 26
[2018-05-15] MEDS ORDERED: BUDESONIDE 1 MG/2 ML NEBU INHALATION SCH (20:00)
--- NOTE | 2018-05-15 23:08 | P.DS ---
Providers Date of admission: 05/11/18 13:22 Expected date of discharge: 05/15/18 Attending physician: Rebecca Flores Consults: 05/11/18 13:22 Consult Physician Urgent Consulting Provider: Caitlyn Ray Consult Reason/Comments: VDRF Do you want consulting provider notified?: Already Contacted Consult Physician Urgent Consulting Provider: Channing Etienne Consult Reason/Comments: CHF, CAP, VDRF Do you want consulting provider notified?: Yes 05/13/18 10:20 Consult Physician Urgent Consulting Provider: Guerita Milan Consult Reason/Comments: Kidney function Do you want consulting provider notified?: Yes Primary care physician: Alejo Bush [place] [facility] Course: Discharge diagnosis Acute hypoxic respiratory failure secondary to pneumonia likely HCAP. Possible aspiration due to underlying dementia and vomiting at ID. Sepsis/septic shock requiring pressor support on admission. Off pressor support now. Elevated troponin due to NSTEMI Paroxysmal atrial fibrillation. New onset. Rate controlled. Possible acute CHF. Ejection fraction unknown. [place], [address] on admission. Acute on chronic kidney disease due to sepsis. Creatinine1.2--1.53--1.03 Hypernatremia secondary to volume depletion. Dementia with history of behavioral changes/combative intermittently. Hyperlipidemia History of DVT Osteoarthritis Hypothyroidism History of diverticulitis History of gout Cervical disc degenerative disease Varicose veins Previous history of smoking Hospital course Patient is a 83-year-old male with a known history of dementia, asthma, history of DVT, memory impairment, osteoarthritis and chronic kidney disease who has been staying at [facility] for the past 2 months was initially transferred to [facility] due to patient being very lethargic and confused and difficulty breathing. Patient also had 1 episode of vomiting. Patient is also febrile when he presented to ER. Patient was initially seen on 05/09/2018 at [facility]. Patient was being treated for pneumonia with Cleocin and ceftriaxone. Today patient condition is deteriorated with worsening chest x-ray findings of bilateral pneumonia. Patient was placed on BiPAP machine and eventually transferred to [facility] ER. Patient was also given a dose of vancomycin at [facility]. Upon arrival to ER patient was found to be hypoxic and was intubated in the ER. Patient was also started on Levophed in the ER. Patient was DO NOT RESUSCITATE/DO NOT INTUBATE prior to transfer but on the way patient's reversed his CODE STATUS to full code. Chest x-ray showed increased central hilar lung markings and diffuse infiltrates bilaterally. Chest x-ray consistent with bilateral pneumonia however interstitial edema is not ruled out. Small left pleural effusion. Troponin 14.4 03/11/2019 Patient is currently on mechanical ventilator. Levophed has been tapered off area and. Currently being sedated with propofol. Patient is being continued on antibiotics in the form of vancomycin and cefepime. IV fluids have been changed to D5 water due to hypernatremia. Creatinine 1.53. Diuretics have been held at this time. Patient has been afebrile. Troponin 12.0 today. Patient is being continued on heparin drip. 03/14/2019 Patient remained on mechanical ventilator. Otherwise patient failed weaning trial last couple of days. Patient has intermittent sedation holiday but became agitated and could not breathe spontaneously. Patient is becoming tachycardic and tachypneic. Currently patient is sedated. Patient is also having atrial fibrillation which is new onset and rate is controlled currently. Cardiology is not planning for further workup until respiratory status improves. Due to poor prognosis along with hypoxic respiratory failure on mechanical ventilator, non-ST elevated MD, and atrial fibrillation and along with underlying dementia, I did have an extensive discussion with the family. Patient does have poor prognosis. Family is in agreement with comfort measures at this time. Hospice care was consulted. Patient will be transferred to hospice care service. As per the family patient also does not wish to be intubated to begin with. Apparently CODE STATUS was changed to full code from DO NOT RESUSCITATE while enroute to the hospital. Discharge physical examination was done and vitals reviewed. Total time taken greater than 35 minutes including 18 minutes for counseling and coordination of care. Patient Condition at Discharge: Serious Plan - Discharge Summary Discharge Rx Participant: No New Discharge Prescriptions: No Action Ginkgo Biloba Devola Extract [Ginkgo] 60 mg PO BID Allopurinol [Zyloprim] 150 mg PO DAILY Tamsulosin [Flomax] 0.4 mg PO DAILY Cholecalciferol [Vitamin D3] 5,000 unit PO DAILY DULoxetine HCL [Cymbalta] 60 mg PO DAILY Levothyroxine Sodium [Synthroid] 50 mcg PO DAILY Potassium Chloride [K-Tab ER] 10 meq PO DAILY Mirtazapine [Remeron] 15 mg PO HS Folic Acid 0.8 mg PO DAILY Ferrous Sulfate [Feosol] 325 mg PO DAILY Multivitamins, Thera [Multivitamin (formulary)] 1 tab PO DAILY Cetirizine HCl [Zyrtec] 10 mg PO DAILY Magnesium Hydroxide [Milk of Magnesia] 2,400 mg PO DAILY PRN PRN Reason: Constipation Albuterol Sulfate [Proair Hfa] 2 puff INHALATION RT-Q4H PRN PRN Reason: Shortness Of Breath Bisacodyl 10 mg RECTAL DAILY PRN PRN Reason: Constipation Acetaminophen Tab [Tylenol Tab] 650 mg PO Q6H PRN PRN Reason: Pain LORazepam [Ativan] 1 mg PO TID PRN PRN Reason: Anxiety Solifenacin Succinate [Vesicare] 5 mg PO DIRECTED Sennosides [Senna] 8.6 mg PO HS PRN PRN Reason: Constipation Memantine HCl [Namenda Xr] 28 mg PO DAILY Magnesium 400 mg PO DAILY Discharge Medication List Allopurinol [Zyloprim] 150 mg PO DAILY 06/28/16 [History] Cholecalciferol [Vitamin D3] 5,000 unit PO DAILY 06/28/16 [History] DULoxetine HCL [Cymbalta] 60 mg PO DAILY 06/28/16 [History] Ginkgo Biloba Devola Extract [Ginkgo] 60 mg PO BID 06/28/16 [History] Tamsulosin [Flomax] 0.4 mg PO DAILY 06/28/16 [History] Levothyroxine Sodium [Synthroid] 50 mcg PO DAILY 07/28/16 [History] Potassium Chloride [K-Tab ER] 10 meq PO DAILY 10/01/16 [History] Cetirizine HCl [Zyrtec] 10 mg PO DAILY 12/06/16 [History] Ferrous Sulfate [Feosol] 325 mg PO DAILY 12/06/16 [History] Folic Acid 0.8 mg PO DAILY 12/06/16 [History] Mirtazapine [Remeron] 15 mg PO HS 12/06/16 [History] Multivitamins, Thera [Multivitamin (formulary)] 1 tab PO DAILY 12/06/16 [History ] Acetaminophen Tab [Tylenol Tab] 650 mg PO Q6H PRN 05/11/18 [History] Albuterol Sulfate [Proair Hfa] 2 puff INHALATION RT-Q4H PRN 05/11/18 [History] Bisacodyl 10 mg RECTAL DAILY PRN 05/11/18 [History] LORazepam [Ativan] 1 mg PO TID PRN 05/11/18 [History] Magnesium 400 mg PO DAILY 05/11/18 [History] Magnesium Hydroxide [Milk of Magnesia] 2,400 mg PO DAILY PRN 05/11/18 [History] Memantine HCl [Namenda Xr] 28 mg PO DAILY 05/11/18 [History] Sennosides [Senna] 8.6 mg PO HS PRN 05/11/18 [History] Solifenacin Succinate [Vesicare] 5 mg PO DIRECTED 05/11/18 [History] Follow up Appointment(s)/Referral(s): Alejo Bush MD [Primary Care Provider] - 1 Week Discharge Disposition: DISCH TO [facility]
== END 2018-05-15 18:49 | disposition hospice, inpatient (51) | DRG 870 ==
LOC: EC 13:11 → 2SICU 13:22
PROVIDERS: ADMIT Internal Medicine; ATTEND Internal Medicine
PROC: 02H633Z Insertion of Infusion Device into Right Atrium, Percutaneous Approach (ICD-10-PCS; principal; 2018-05-11)
PROC: 5A1955Z Respiratory Ventilation, Greater than 96 Consecutive Hours (ICD-10-PCS; 2018-05-11)
PROC: 0BH17EZ Insertion of Endotracheal Airway into Trachea, Via Natural or Artificial Opening (ICD-10-PCS; 2018-05-11)
PROC: 03HY32Z Insertion of Monitoring Device into Upper Artery, Percutaneous Approach (ICD-10-PCS; 2018-05-11)
PROC: 0D9670Z Drainage of Stomach with Drainage Device, Via Natural or Artificial Opening (ICD-10-PCS; 2018-05-11)
PROC: 3E0G76Z Introduction of Nutritional Substance into Upper GI, Via Natural or Artificial Opening (ICD-10-PCS; 2018-05-11)
PROC: 03HY32Z Insertion of Monitoring Device into Upper Artery, Percutaneous Approach (ICD-10-PCS; 2018-05-11)
PROC: 4A133B1 Monitoring of Arterial Pressure, Peripheral, Percutaneous Approach (ICD-10-PCS; 2018-05-11)
PROC: 4A133J1 Monitoring of Arterial Pulse, Peripheral, Percutaneous Approach (ICD-10-PCS; 2018-05-11)
DX: A41.9 Sepsis, unspecified organism (principal); J69.0 Pneumonitis due to inhalation of food and vomit; J96.01 Acute respiratory failure with hypoxia; I21.4 Non-ST elevation (NSTEMI) myocardial infarction; N17.0 Acute kidney failure with tubular necrosis; J96.02 Acute respiratory failure with hypercapnia; R65.21 Severe sepsis with septic shock; I50.21 Acute systolic (congestive) heart failure; Z99.11 Dependence on respirator [ventilator] status; E87.4 Mixed disorder of acid-base balance; E87.0 Hyperosmolality and hypernatremia; I13.0 Hypertensive heart and chronic kidney disease with heart failure and stage 1 through stage 4 chronic kidney disease, or unspecified chronic kidney disease; N39.0 Urinary tract infection, site not specified; I48.0 Paroxysmal atrial fibrillation; E86.9 Volume depletion, unspecified; F03.90 Unspecified dementia, unspecified severity, without behavioral disturbance, psychotic disturbance, mood disturbance, and anxiety; N18.3 Chronic kidney disease, stage 3 (moderate); Z66 Do not resuscitate; M19.90 Unspecified osteoarthritis, unspecified site; J45.909 Unspecified asthma, uncomplicated; E78.5 Hyperlipidemia, unspecified; M10.9 Gout, unspecified; F32.9 Major depressive disorder, single episode, unspecified; Y95 Nosocomial condition; E03.9 Hypothyroidism, unspecified; M50.30 Other cervical disc degeneration, unspecified cervical region; I83.90 Asymptomatic varicose veins of unspecified lower extremity; R45.1 Restlessness and agitation; K59.09 Other constipation; Z51.5 Encounter for palliative care; Z79.899 Other long term (current) drug therapy; Z79.890 Hormone replacement therapy; Z87.01 Personal history of pneumonia (recurrent); Z90.49 Acquired absence of other specified parts of digestive tract; Z98.42 Cataract extraction status, left eye; Z98.41 Cataract extraction status, right eye; Z96.652 Presence of left artificial knee joint; Z87.891 Personal history of nicotine dependence; Z86.718 Personal history of other venous thrombosis and embolism
CPT/HCPCS: 31500; 36415; 36556; 36600; 71045; 74018; 80048; 80053; 81003; 82805; 83036; 83605; 83735; 83880; 84100; 84145; 84484; 85025; 85027; 85610; 85730; 87040; 87070; 87086; 87205; 93306; 94002; 94003; 94640; 96365; 99291

== ENCOUNTER 2018-05-15 16:26 | Inpatient (IN) | payer MEDICAID ==
[2018-05-15] MEDS ORDERED: MORPHINE SULFATE 4 MG/ML SYRINGE IVP ONE (18:46)
[2018-05-15] MEDS ORDERED: ARTIFICIAL TEARS-HYPROMELLOSE DROPS 15 ML BTL BOTH EYES PRN (18:46)
[2018-05-15] MEDS ORDERED: ACETAMINOPHEN IV (For NPO) 1,000 MG in EMPTY BAG 1 BAG IVPB PRN (18:46)
[2018-05-15] MEDS ORDERED: LORazepam 2 MG/ML INJ IV ONE (20:00)
[2018-05-15] MEDS: MORPHINE SULFATE (100 MG/2 ML) 100 MG in SODIUM CHLORIDE 0.9% 100 ML IV SCH (21:07)
--- NOTE | 2018-05-15 22:48 | CONS ---
CONSULTATION This patient has a acute respiratory failure. Patient has been treated for pneumonia. Patient also has cardiomyopathy with severely impaired left ventricular systolic function. The attempts at weaning were unsuccessful again today. The patient is being considered for comfort care. I had a discussion with the family members regarding the patient's heart conditions. Patient's overall prognosis remains guarded. Blood pressure is 135/45 mmHg. First and second heart sounds are normal. Lungs reveal bilateral scattered wheezes. The patient now is in normal sinus rhythm. We will continue the current medications. MMODL / IJN: [id number] /
[2018-05-15] MEDS: SCOPOLAMINE 1.5MG/72HR PATCH TRANSDERM SCH (23:16)
[2018-05-16 09:04] VITALS: BP 167/72; PULSE 98; RESP 12
[2018-05-16] MEDS: ATROPINE OPHTH SOLN 1% 5ML BTL SUBLINGUAL PRN ×2 (09:44→14:10)
[2018-05-16] MEDS: LORazepam 2 MG/ML INJ IV PRN ×2 (11:15→13:16)
[2018-05-16] MEDS: SCOPOLAMINE 1.5MG/72HR PATCH TRANSDERM SCH (15:34)
[2018-05-16] MEDS: MORPHINE SULFATE (100 MG/2 ML) 100 MG in SODIUM CHLORIDE 0.9% 100 ML IV SCH (20:03)
--- NOTE | 2018-05-16 23:47 | P.PN ---
Subjective Progress Note Date: 05/16/18 Principal diagnosis: Acute hypoxic respiratory failure due to bilateral pneumonia. Failed weaning. Acute non-ST elevated OR Dementia Atrial fibrillation. New onset Patient is a 83-year-old male with a known history of dementia, asthma, history of DVT, memory impairment, osteoarthritis and chronic kidney disease who has been staying at [facility] for the past 2 months was initially transferred to [facility] due to patient being very lethargic and confused and difficulty breathing. Patient also had 1 episode of vomiting. Patient is also febrile when he presented to ER. Patient was initially seen on 05/09/2018 at [facility]. Patient was being treated for pneumonia with Cleocin and ceftriaxone. Today patient condition is deteriorated with worsening chest x-ray findings of bilateral pneumonia. Patient was placed on BiPAP machine and eventually transferred to [facility] ER. Patient was also given a dose of vancomycin at [facility]. Upon arrival to ER patient was found to be hypoxic and was intubated in the ER. Patient was also started on Levophed in the ER. Patient was DO NOT RESUSCITATE/DO NOT INTUBATE prior to transfer but on the way patient's reversed his CODE STATUS to full code. Chest x-ray showed increased central hilar lung markings and diffuse infiltrates bilaterally. Chest x-ray consistent with bilateral pneumonia however interstitial edema is not ruled out. Small left pleural effusion. Troponin 14.4 03/11/2019 Patient is currently on mechanical ventilator. Levophed has been tapered off area and. Currently being sedated with propofol. Patient is being continued on antibiotics in the form of vancomycin and cefepime. IV fluids have been changed to D5 water due to hypernatremia. Creatinine 1.53. Diuretics have been held at this time. Patient has been afebrile. Troponin 12.0 today. Patient is being continued on heparin drip. 03/14/2019 Patient remained on mechanical ventilator. Otherwise patient failed weaning trial last couple of days. Patient has intermittent sedation holiday but became agitated and could not breathe spontaneously. Patient is becoming tachycardic and tachypneic. Currently patient is sedated. Patient is also having atrial fibrillation which is new onset and rate is controlled currently. Cardiology is not planning for further workup until respiratory status improves. Due to poor prognosis along with hypoxic respiratory failure on mechanical ventilator, non-ST elevated OR, and atrial fibrillation and along with underlying dementia, I did have an extensive discussion with the family. Patient does have poor prognosis. Family is in agreement with comfort measures at this time. Hospice care was consulted. Patient will be transferred to hospice care service. As per the family patient also does not wish to be intubated to begin with. Apparently CODE STATUS was changed to full code from DO NOT RESUSCITATE while enroute to the hospital. 03/15/2019 Patient is currently in hospice care. Patient was slightly agitated this morning and was started on Ativan IV as well. Currently patient is lying on the bed comfortably. Family at bedside. No other overnight issues. Objective - Vital Signs Vital signs: Vital Signs Temp Pulse 98 05/16/18 09:03 Resp 12 05/16/18 15:53 BP 167/72 05/16/18 09:03 Pulse Ox 91 L 05/16/18 09:03 Intake & Output 05/16/18 05/16/18 05/17/18 06:59 18:59 06:59 Intake Total 156.662 95.249 Output Total 1280 300 Balance -1123.338 -204.751 Intake: IV 145 80 NS 145 80 Intake, IV Titration 11.662 15.249 Amount Morphine Sulfate (100 mg/ 11.662 15.249 2 ml) 100 mg In Sodium Chloride 0.9% 100 ml @ 1 MG/HR 1.02 mls/hr IV . Q24H [facility] Rx#:[id number] Output: Urine 1280 300 Other: Voiding Method Indwelling Catheter Indwelling Catheter # Bowel Movements 2 2 - Exam PHYSICAL EXAMINATION: Patient is lying in the bed comfortably. Does not respond with verbal stimuli. Neck reveals no JVD, carotid bruits, or thyromegaly. CHEST EXAMINATION: Trachea is central. Symmetrical expansion. Scattered Rhonchi positive. No wheezing. CARDIAC: Normal S1, S2 with no gallops. No murmurs ABDOMEN: Soft. Bowel sounds present. Skin: No rash or skin lesions. Assessment and Plan Assessment: Acute hypoxic respiratory failure secondary to pneumonia likely HCAP. Possible aspiration due to underlying dementia and vomiting at ID. Sepsis/septic shock requiring pressor support on admission. Off pressor support now. Elevated troponin due to NSTEMI Paroxysmal atrial fibrillation. New onset. Rate controlled. Possible acute CHF. Ejection fraction unknown. Elevated BNP, [address] on admission. Acute on chronic kidney disease due to sepsis. Creatinine1.2--1.53--1.03 Hypernatremia secondary to volume depletion. Dementia with history of behavioral changes/combative intermittently. Hyperlipidemia History of DVT Osteoarthritis Hypothyroidism History of diverticulitis History of gout Cervical disc degenerative disease Varicose veins Previous history of smoking Plan: Patient be continued on morphine IV and Ativan and titrate to comfort this time. Hospice care is following.
[2018-05-17] MEDS: MORPHINE SULFATE (100 MG/2 ML) 100 MG in SODIUM CHLORIDE 0.9% 100 ML IV SCH (01:15)
--- NOTE | 2018-05-17 23:20 | P.DS ---
Providers Date of admission: 05/15/18 18:51 Expected date of discharge: 05/17/18 Attending physician: Rebecca Flores Primary care physician: Alejo Rachelle [facility] Course: diagnosis Acute hypoxic respiratory failure secondary to pneumonia likely HCAP. Possible aspiration due to underlying dementia and vomiting at ID. Sepsis/septic shock requiring pressor support on admission. Off pressor support now. Elevated troponin due to NSTEMI Paroxysmal atrial fibrillation. New onset. Rate controlled. Possible acute CHF. Ejection fraction unknown. Elevated BNP, [address] on admission. Acute on chronic kidney disease due to sepsis. Creatinine1.2--1.53--1.03 Hypernatremia secondary to volume depletion. Dementia with history of behavioral changes/combative intermittently. Hyperlipidemia History of DVT Osteoarthritis Hypothyroidism History of diverticulitis History of gout Cervical disc degenerative disease Varicose veins Previous history of smoking Hospital course Patient is a 83-year-old male with a known history of dementia, asthma, history of DVT, memory impairment, osteoarthritis and chronic kidney disease who has been staying at [facility] for the past 2 months was initially transferred to [facility] due to patient being very lethargic and confused and difficulty breathing. Patient also had 1 episode of vomiting. Patient is also febrile when he presented to ER. Patient was initially seen on 05/09/2018 at [facility]. Patient was being treated for pneumonia with Cleocin and ceftriaxone. Today patient condition is deteriorated with worsening chest x-ray findings of bilateral pneumonia. Patient was placed on BiPAP machine and eventually transferred to [facility] ER. Patient was also given a dose of vancomycin at [facility]. Upon arrival to ER patient was found to be hypoxic and was intubated in the ER. Patient was also started on Levophed in the ER. Patient was DO NOT RESUSCITATE/DO NOT INTUBATE prior to transfer but on the way patient's reversed his CODE STATUS to full code. Chest x-ray showed increased central hilar lung markings and diffuse infiltrates bilaterally. Chest x-ray consistent with bilateral pneumonia however interstitial edema is not ruled out. Small left pleural effusion. Troponin 14.4 03/11/2019 Patient is currently on mechanical ventilator. Levophed has been tapered off area and. Currently being sedated with propofol. Patient is being continued on antibiotics in the form of vancomycin and cefepime. IV fluids have been changed to D5 water due to hypernatremia. Creatinine 1.53. Diuretics have been held at this time. Patient has been afebrile. Troponin 12.0 today. Patient is being continued on heparin drip. 03/14/2019 Patient remained on mechanical ventilator. Otherwise patient failed weaning trial last couple of days. Patient has intermittent sedation holiday but became agitated and could not breathe spontaneously. Patient is becoming tachycardic and tachypneic. Currently patient is sedated. Patient is also having atrial fibrillation which is new onset and rate is controlled currently. Cardiology is not planning for further workup until respiratory status improves. Due to poor prognosis along with hypoxic respiratory failure on mechanical ventilator, non-ST elevated [place], and atrial fibrillation and along with underlying dementia, I did have an extensive discussion with the family. Patient does have poor prognosis. Family is in agreement with comfort measures at this time. Hospice care was consulted. Patient will be transferred to hospice care service. As per the family patient also does not wish to be intubated to begin with. Apparently CODE STATUS was changed to full code from DO NOT RESUSCITATE while enroute to the hospital. 03/15/2019 Patient is currently in hospice care. Patient was slightly agitated this morning and was started on Ativan IV as well. Currently patient is lying on the bed comfortably. Family at bedside. No other overnight issues. 03/16/2019 Patient at 1310. Family has been notified. Patient Condition at Discharge: Undetermined Plan - Discharge Summary New Discharge Prescriptions: No Action Ginkgo Biloba [place] Extract [Ginkgo] 60 mg PO BID Allopurinol [Zyloprim] 150 mg PO DAILY Tamsulosin [Flomax] 0.4 mg PO DAILY Cholecalciferol [Vitamin D3] 5,000 unit PO DAILY DULoxetine HCL [Cymbalta] 60 mg PO DAILY Levothyroxine Sodium [Synthroid] 50 mcg PO DAILY Potassium Chloride [K-Tab ER] 10 meq PO DAILY Mirtazapine [Remeron] 15 mg PO HS Folic Acid 0.8 mg PO DAILY Ferrous Sulfate [Feosol] 325 mg PO DAILY Multivitamins, Thera [Multivitamin (formulary)] 1 tab PO DAILY Cetirizine HCl [Zyrtec] 10 mg PO DAILY Magnesium Hydroxide [Milk of Magnesia] 2,400 mg PO DAILY PRN PRN Reason: Constipation Albuterol Sulfate [Proair Hfa] 2 puff INHALATION RT-Q4H PRN PRN Reason: Shortness Of Breath Bisacodyl 10 mg RECTAL DAILY PRN PRN Reason: Constipation Acetaminophen Tab [Tylenol Tab] 650 mg PO Q6H PRN PRN Reason: Pain LORazepam [Ativan] 1 mg PO TID PRN PRN Reason: Anxiety Solifenacin Succinate [Vesicare] 5 mg PO DIRECTED Sennosides [Senna] 8.6 mg PO HS PRN PRN Reason: Constipation Memantine HCl [Namenda Xr] 28 mg PO DAILY Magnesium 400 mg PO DAILY Discharge Medication List Allopurinol [Zyloprim] 150 mg PO DAILY 06/28/16 [History] Cholecalciferol [Vitamin D3] 5,000 unit PO DAILY 06/28/16 [History] DULoxetine HCL [Cymbalta] 60 mg PO DAILY 06/28/16 [History] Ginkgo Biloba [place] Extract [Ginkgo] 60 mg PO BID 06/28/16 [History] Tamsulosin [Flomax] 0.4 mg PO DAILY 06/28/16 [History] Levothyroxine Sodium [Synthroid] 50 mcg PO DAILY 07/28/16 [History] Potassium Chloride [K-Tab ER] 10 meq PO DAILY 10/01/16 [History] Cetirizine HCl [Zyrtec] 10 mg PO DAILY 12/06/16 [History] Ferrous Sulfate [Feosol] 325 mg PO DAILY 12/06/16 [History] Folic Acid 0.8 mg PO DAILY 12/06/16 [History] Mirtazapine [Remeron] 15 mg PO HS 12/06/16 [History] Multivitamins, Thera [Multivitamin (formulary)] 1 tab PO DAILY 12/06/16 [History ] Acetaminophen Tab [Tylenol Tab] 650 mg PO Q6H PRN 05/11/18 [History] Albuterol Sulfate [Proair Hfa] 2 puff INHALATION RT-Q4H PRN 05/11/18 [History] Bisacodyl 10 mg RECTAL DAILY PRN 05/11/18 [History] LORazepam [Ativan] 1 mg PO TID PRN 05/11/18 [History] Magnesium 400 mg PO DAILY 05/11/18 [History] Magnesium Hydroxide [Milk of Magnesia] 2,400 mg PO DAILY PRN 05/11/18 [History] Memantine HCl [Namenda Xr] 28 mg PO DAILY 05/11/18 [History] Sennosides [Senna] 8.6 mg PO HS PRN 05/11/18 [History] Solifenacin Succinate [Vesicare] 5 mg PO DIRECTED 05/11/18 [History] Discharge Disposition: - Preliminary Cause of Preliminary Cause of : Hypoxic respiratory failure secondary to bilateral pneumonia
== END 2018-05-17 17:05 | disposition expired | DRG 951 ==
LOC: 2SICU 18:51 → 3NMEDONC 05-16 10:04
PROVIDERS: ADMIT Internal Medicine; ATTEND Internal Medicine
PROC: 5A1935Z Respiratory Ventilation, Less than 24 Consecutive Hours (ICD-10-PCS; principal; 2018-05-15)
DX: Z51.5 Encounter for palliative care (principal); A41.9 Sepsis, unspecified organism; R65.21 Severe sepsis with septic shock; I21.4 Non-ST elevation (NSTEMI) myocardial infarction; J18.9 Pneumonia, unspecified organism; J96.01 Acute respiratory failure with hypoxia; N17.9 Acute kidney failure, unspecified; E87.0 Hyperosmolality and hypernatremia; I42.9 Cardiomyopathy, unspecified; I48.0 Paroxysmal atrial fibrillation; E86.9 Volume depletion, unspecified; Z66 Do not resuscitate; Y95 Nosocomial condition; F03.90 Unspecified dementia, unspecified severity, without behavioral disturbance, psychotic disturbance, mood disturbance, and anxiety; N18.9 Chronic kidney disease, unspecified; J45.909 Unspecified asthma, uncomplicated; E78.5 Hyperlipidemia, unspecified; M50.30 Other cervical disc degeneration, unspecified cervical region; I83.90 Asymptomatic varicose veins of unspecified lower extremity; M19.90 Unspecified osteoarthritis, unspecified site; M10.9 Gout, unspecified; E03.9 Hypothyroidism, unspecified; Z79.890 Hormone replacement therapy; Z79.899 Other long term (current) drug therapy; Z87.19 Personal history of other diseases of the digestive system; Z86.718 Personal history of other venous thrombosis and embolism; Z87.891 Personal history of nicotine dependence